=== PATIENT | female | born 1935 | race Caucasian/White ===

== ENCOUNTER 2016-10-24 13:28 | Inpatient (IN) | payer MEDICARE ==
[~2016-10-24] VITALS: Ht 157.5 cm; Wt 54.9 kg
[2016-10-24] MEDS ORDERED: NITROGLYCERIN SUBLINGUAL 0.4 MG TAB (NITROSTAT) SL PRN (14:15)
[2016-10-24] MEDS ORDERED: FOLI0.8T2 PO (14:26)
[2016-10-24] MEDS ORDERED: CYCL1DRO OU (14:26)
[2016-10-24] MEDS ORDERED: LOSA100T3 PO (14:26)
[2016-10-24] MEDS ORDERED: ASPI-999 PO (14:26)
[2016-10-24] MEDS ORDERED: NITR0.4T39 SL (14:26)
[2016-10-24] MEDS ORDERED: METO-351 PO (14:26)
[2016-10-24] MEDS ORDERED: OMEG1CAP PO ×2 (14:26→19:00)
[2016-10-24] MEDS ORDERED: OMEP20TA33 PO (14:26)
[2016-10-24] MEDS ORDERED: ATOR40TA PO (14:26)
[2016-10-24] MEDS ORDERED: POTA10TA PO (14:26)
[2016-10-24] MEDS ORDERED: AMLO5TAB4 PO (14:26)
[2016-10-24 17:00] VITALS: BP 152/76
[2016-10-24] MEDS ORDERED: ARTIFICAL TEARS 0.4 ML UNIT DOSE (REFRESH PLUS) OU PRN (17:15)
[2016-10-24] MEDS: OMEGA 3 (FISH OIL) 1000 MG CAP PO SCH (17:35)
[2016-10-24] MEDS ORDERED: OLME40TA12 PO (19:00)
[2016-10-24] MEDS ORDERED: CELE200C PO (19:00)
[2016-10-24] MEDS ORDERED: PITA2TAB2 PO (19:00)
[2016-10-24] MEDS ORDERED: ESTR0.62 PO (19:00)
[2016-10-24] MEDS ORDERED: ACET-93 PO (19:00)
[2016-10-24] MEDS ORDERED: HYDR-756 PO (19:00)
[2016-10-24] MEDS ORDERED: METO-352 PO (19:00)
[2016-10-24] MEDS: KCL 10 MEQ TAB (MICRO K) PO SCH (20:56)
[2016-10-24] MEDS: ATORVASTATIN 40 MG (LIPITOR) TABLET PO SCH (20:56)
[2016-10-24] MEDS: ARTIFICAL TEARS 0.4 ML UNIT DOSE (REFRESH PLUS) OU SCH (21:10)
[2016-10-25 05:34] LABS: BASOPHILS # (AUTO) 0.1 10^3/uL (0.0-0.1); BASOPHILS % (AUTO) 1 % (0-10); EOSINOPHILS # (AUTO) 0.4 10^3/uL (0.0-0.3); EOSINOPHILS % (AUTO) 5 % (0-10); LYMPHOCYTES # (AUTO) 3.3 X 10^3 (1.0-4.0); LYMPHOCYTES % (AUTO) 43 % (12-44); MEAN CORPUSCULAR HEMOGLOBIN 31 PG (25-34); MEAN CORPUSCULAR HGB CONC 32 G/DL (32-36); MEAN CORPUSCULAR VOLUME 95 FL (80-99); MEAN PLATELET VOLUME 9.6 FL (7.4-10.4); MONOCYTES # (AUTO) 0.7 X 10^3 (0.0-1.0); MONOCYTES % (AUTO) 10 % (0-12); NEUTROPHILS # (AUTO) 3.3 X 10^3 (1.8-7.8); NEUTROPHILS % (AUTO) 42 % (42-75); PLATELET COUNT 242 10^3/uL (130-400); RED BLOOD COUNT 3.31 10^6/uL (4.35-5.85); RED CELL DISTRIBUTION WIDTH 12.6 % (10.0-14.5); WHITE BLOOD COUNT 7.8 10^3/uL (4.3-11.0)
[2016-10-25 06:02] VITALS: BP 162/71
[2016-10-25] MEDS: OMEGA 3 (FISH OIL) 1000 MG CAP PO SCH ×2 (06:04→17:09)
[2016-10-25] MEDS: PANTOPRAZOLE 20 MG TABLET (PROTONIX) PO SCH (06:05)
[2016-10-25] MEDS: MULTIVIT W/MINERALS TAB (THERAGRAN M) PO SCH (06:05)
[2016-10-25] MEDS: KCL 10 MEQ TAB (MICRO K) PO SCH ×2 (06:05→17:09)
[2016-10-25 06:14] LABS: ALBUMIN 3.5 GM/DL (3.2-4.5); BILIRUBIN,TOTAL 0.3 MG/DL (0.1-1.0); CALCIUM 8.9 MG/DL (8.5-10.1); CREATININE SERUM 1.22 MG/DL (0.60-1.30); POTASSIUM 4.1 MMOL/L (3.6-5.0); TOTAL PROTEIN 6.1 GM/DL (6.4-8.2)
[2016-10-25] MEDS: LOSARTAN 50 MG (COZAAR) TAB PO SCH (08:27)
[2016-10-25] MEDS: amLODIPine 5 MG (NORVASC) TAB PO SCH (08:27)
[2016-10-25] MEDS: ASPIRIN E.C. 81 MG (ECOTRIN) TAB PO SCH (08:27)
[2016-10-25] MEDS: ARTIFICAL TEARS 0.4 ML UNIT DOSE (REFRESH PLUS) OU SCH ×2 (08:27→19:19)
--- NOTE | 2016-10-25 08:45 | Physical Therapy Evaluation ---
PT Evaluation-General Medical Diagnosis Admission Date Oct 24, 2016 at 16:53 Medical Diagnosis: CVA Onset Date: Oct 19, 2016 Therapy Diagnosis Therapy Diagnosis: generalized weakness/debility Height/Weight Height (Feet): 5 Height (Inches): 2.00 Weight (Pounds): 121 Weight (Ounces): 0.0 Precautions Precautions/Isolations: Fall Prevention, Standard Precautions Referral Physician: Blake Reason for Referral: Evaluation/Treatment Medical History Pertinent Medical History: Arthritis, Dementia Current History s/p CVA with left sided weakness Reviewed History: Yes Social History Home: Single Level Current Living Status: Spouse Entry Into Home: Stairs With Railing PT Steps Into Home: 1 Prior/Core FIM Prior Level of Function Functional Bull[place] Measure 0=Not Assessed/NA 4=Minimal Assistance 1=Total Assistance 5=Supervision or Setup 2=Maximal Assistance 6=Modified [place] 3=Moderate Assistance 7=Complete [place] Bed Mobility: 6 Transfers (B,C,W/C) (FIM): 6 Gait: 7 spouse assist with all mobility and ADL's PLOF per spouse report PT Evaluation-Current Subjective Patient is very reluctant to participate with PT. Spouse is present and patient address him to assist her with bed mobility and transfers. Pain Numeric Pain Scale: 5-Moderate Pain Location: Lower Location Body Site: Back Pain Description: Ache, Chronic Objective Patient Orientation: Confused Problem Solving: Fair ROM/Strength ROM Lower Extremities bilateral LE WNL Strenght Lower Extremities right knee flexion/extension 4/5; hip flexion 4/5; ankle dorsi/plantarflexion 4/ 5 left knee flexion/extension 4/5; hip flexion 4/5 ankle dorsi/plantarflexion 4/5 Integumentary/Posture Integumentary refer to nursing notes Bowel Incontinence: No Bladder Incontinence: No Posture WNL Neuromuscular (Tone, Coordination, Reflexes) slight diminished coordination due to dementia Sensory Vision: Wears Glasses Hearing: Functional Sensation Right Lower Extremit: Intact Sensation Left Lower Extremity: Intact Transfers Functional Bulloch Measure 0=Not Assessed/NA 4=Minimal Assistance 1=Total Assistance 5=Supervision or Setup 2=Maximal Assistance 6=Modified [place] 3=Moderate Assistance 7=Complete IndependenceIRFPAI Quality Coding Scale 6 Independent with activity with or without an assistive device 5 Patient requires set up or clean up by helper. Patient completes activity by themselves 4 Supervision or touching assist (CGA). [place] provide cues , steadying assist 3 The helper provides less than half the effort to complete the activity 2 The helper provides more than half the effort to complete the activity 1 Dependent. The helper does all the effort to complete an activity 7 Patient refused to complete or attempt activity 9 The patient did not perform the activity before the current illness or injury 88 Not attempted due to Medical conditions or safety concerns Transfers (B, C, W/C) (FIM): 4 Scootin Rollin Roll Left to Right (QC): 5 Supine to/from Sit: 5 Sit to/from Stand: 4 Sit to Lying (QC): 5 Lying to Sitting/Side of Bed(Q: 5 Sit to Stand (QC): 4 Chair/Dmg-vk-Oftuj Xfer(QC): 4 Car Transfer (QC): 5 CGA with use of gait belt for safety Gait Does the Patient Walk?: Yes Mode of Locomotion: Walk Anticipated Mode of Locomotion: Walk Gait (FIM): 4 Distance (FIM): 3=150 ft Walk 10 feet (QC): 4 Walk 50 ft with 2 Turns(QC): 4 Walk 150 ft (QC): 4 Walking 10ft/uneven surface-QC: 4 Distance: 200' x 5 Gait Level of Assist: 4 (DENTAL ASSISTANT) Gait Persons Needed: 1 Gait Assistive Device: None Comments/Gait Description shuffle gait sequence with DENTAL ASSISTANT; patient requires much encouragement to participate and continue to participate with therapy. Stairs Stairs (FIM): 1 #of Steps: 1 Level of Assist: 4 1 Step (curb) (QC): 4 4 Steps (QC): 7 12 Steps (QC): 7 patient adamantly declined to participate with stair training and impulsively and resistively will pull on PT's hand to go sit on a chair. She would repeat, "I want to go back to my room. I want to go home. Where is Km?" Balance Sitting Static: Normal Sitting Dynamic: Normal Standing Static: Normal Standing Dynamic: Normal Picking up an Object (QC): 6 Assessment/Needs 81 y.o. female, is currently at a CGA to A with gross motor skills. Patient is very resistive to participate with therapy due to dementia and patient relies on spouse support to complete tasks. PT, with patient and spouse, will address functional strength and mobility to improve current LOF and to safely return to home with spouse. Rehab Potential: Fair Post Rehab Potential-Barriers: participate/dementia PT Group Home Goals Unit Assembler Goals PT Group Home Goals Time Frame: Nov 07, 2016 Transfers (B,C,W/C) (FIM): 6 Sit to Lying (QC): 5 Lying-Sitting on Side/Bed(QC): 5 Sit to Stand (QC): 5 Rollin Roll Left to Right (QC): 5 Chair/Chj-jx-Ruxir Xfer(QC): 5 Car Transfer (QC): 5 Does the Patient Walk: Yes Gait (FIM): 5 Gait distance (FIM): 3=150 ft Walk 10 feet (QC): 5 Walk 10ft-Uneven Surface(QC): 5 Walk 50ft with 2 Turns (QC): 5 Walk 150 ft (QC): 5 Gait Level of Assist: 5 Gait Assistive Device: None Stairs (FIM): 2 # of Steps: 4 1 Step (curb) (QC): 5 4 Steps (QC): 5 12 Steps (QC): 9 Stairs Level Of Assist: 5 Picking up an Object (QC): 6 PT Plan Problem List Problem List: Activity Tolerance, Safety Treatment/Plan Treatment Plan: Continue Plan of Care Treatment Plan: Bed Mobility, Education, Functional Activity Kareen, Functional Strength, Group Therapy, Gait, Safety, Therapeutic Exercise, Transfers Treatment Duration: Nov 07, 2016 Frequency: At least 5-7 days/Wk (IRF) Estimated Hrs Per Day: 1.5 hours per day Patient and/or Family Agrees t: Yes Safety Risks/Education Patient Education: Gait Training, Steps, Safety Issues Teaching Recipient: Patient Teaching Methods: Discussion Response to Teaching: Unable to Comprehend, Reinforcement Needed Discharge Recommendations Therapy D/C Recommendations: Home w/ Family Support Time/GCodes Time In: 655 Time Out: 800 Total Billed Treatment Time: 65 Total Billed Treatment 1 visit EVModC 45 min FA 20 min SEFERINO YAÑEZ PT Oct 25, 2016 08:45
--- NOTE | 2016-10-25 09:27 | PM&R Post Admission Assessment ---
Post Admission Physician Asses The preadmission screen agrees with the post admission assessment that the patient is a good candidate for inpatient rehabilitation. The patient will have a comprehensive program of inpatient rehabilitation with a goal of maximizing level of functional independence prior to discharge home with spouse. The patient will have PT/OT ninety minutes per day, each discipline, five days a week for gait, strengthening, conditioning, balance, ADLs, any patient/family/caregiver training as necessary. Speech therapy to do cognitive assessment and treat as indicated. Rehabilitation nursing to assist with bowel, bladder, skin, medication administration, pain management. Debt Collector to assist with discharge planning, community reentry. SCD's for DVT prophylaxis. She appears to be well motivated to participate in three hours of therapy a day. She should be able to tolerate three hours of therapy a day from a medical standpoint. She should benefit from the three hours of therapy a day. She has a reasonable discharge plan, reasonable discharge rehabilitation goals and a supportive family. She has various comorbidities that need to be closely monitored with medications and treatments adjusted on a daily basis as needed. These include: HTN Chronic back pain due to scoliosis azotemia Anemia Barriers to discharge for this patient who had been independent prior to this are for her to be modified independent to supervision for ADLs and mobility skills prior to discharge home with spouse, so as to lessen the burden of the caregivers. Risks for this patient include: 1. Fall 2. Fracture 3. DVT 4. Pulmonary embolism 5. Poorly controlled HTN 6. Skin breakdown 7. Contractures 8. Poorly controlled pain 9. Urinary retention 10. UTI 11. Respiratory infection 12. Aspiration 13. Worsening anemia 14. Worsening Azotemia Estimated Length of Stay: 14 days Prognosis: Rehab prognosis appears good for goal of discharge home with [family ] modified independent to supervision for ADLs and mobility skills. TIFFANY DURAN MD Oct 25, 2016 09:27
--- NOTE | 2016-10-25 09:47 | Occupational Therapy Eval ---
OT Evaluation-General/PLF Medical Diagnosis Admission Date Oct 24, 2016 at 16:53 Medical Diagnosis: CVA Onset Date: Oct 19, 2016 Therapy Diagnosis Therapy Diagnosis: Weakness Height/Weight Height (Feet): 5 Height (Inches): 2.00 Weight (Pounds): 121 Weight (Ounces): 0.0 Precautions Precautions/Isolations: Fall Prevention, Standard Precautions Safety Interventions: Bed Exit Alarm, Reorient-PRN Referral Physician: Blake Referral Reason: Activity Tolerance, Self Care, Evaluation/Treatment, Strengthening/ROM Medical History Pertinent Medical History: Arthritis, Dementia Additional Medical History scoliosis, OA, perforated duodenal ulcer Current History Spouse states that pt. had a surgery for a perforated bowel a year and a half ago. States that when she woke up from the surgery, she had no short term memory. Pt. had CVA a week ago, affecting left side. States that she was not given a "clot buster" and he does not know why. Reviewed History: Yes Social History Home: Single Level Current Living Status: Spouse Entry Into Home: Stairs With Railing Steps Into Home: 1 ADL-Prior Level of Function ADL PLOF Comments Spouse states that pt. was able to bathe and dress, but that he helped her when she needed it. DME/Equipment: Bath Chair, Shower OT Current Status Subjective Pt. does not know where she is, or what happened to her. Appearance Pt. is up with PT. OT introduces self to pt. Mental Status/Objective Patient Orientation: Confused Current Glasses/Contacts: Yes Hand Dominance: Right Upper Extremity ROM Pt. is able to demonstrate full ROM in bilateral shoulders/elbows. However, limited hand function in left hand. Full ROM in right hand. Upper Extremity Coordination limited in left UE. Upper Extremity Sensation Pt. reports "numbness" in left UE. Upper Extremity Strength Pt. demonstrates 2+/5 strength in right UE. Demonstrates 2+/5 proximally in left UE, and 2/5 distally in left UE. ADL-Treatment Functional [place]oussard Measure 0=Not Assessed/NA 4=Minimal Assistance 1=Total Assistance 5=Supervision or Setup 2=Maximal Assistance 6=Modified [place] 3=Moderate Assistance 7=Complete IndependenceIRFPAI Quality Coding Scale 6 Independent with activity with or without an assistive device 5 Patient requires set up or clean up by helper. Patient completes activity by themselves 4 Supervision or touching assist (CGA). [place] provide cues , steadying assist 3 The helper provides less than half the effort to complete the activity 2 The helper provides more than half the effort to complete the activity 1 Dependent. The helper does all the effort to complete an activity 7 Patient refused to complete or attempt activity 9 The patient did not perform the activity before the current illness or injury 88 Not attempted due to Medical conditions or safety concerns Grooming (FIM): 3 (Pt. begins to brush right side of hair, but then does not brush left side. Asks spouse who then does this for her.) Bathing (FIM): 4 (Pt. requires constant cues to wash all parts. Will only "dab " at places. CGA in stance.) Shower/Bathe Self (QC): 4 Upper Body Dressing (FIM): 3 (Mod assist overall to doff/don bra and shirt due to decreased coordination in left UE.) Upper Body Dressing (QC): 3 Lower Body Dressing (FIM): 4 (Min assist to don right sock. Pt. able to don underwear, pants, and shoes, with CGA in stance for balance.) Lower Body Dressing (QC): 4 On/Off Footwear (QC): 5 Toileting (FIM): 4 (CGA and cues to cleanse thoroughly.) Toileting Hygiene (QC): 4 Transfers (B, C, W/C) (FIM): 4 (CGA at times.) Toilet/Commode Transfer (FIM): 4 Toilet Transfer (QC): 4 Shower Transfer (FIM): 4 Other Treatments Pt. participated in series of visual perceptual and cognitive tasks. Participated in the MOCA exam, and scored a 13/30, indicating a severe cognitive impairment. Unable to determine visual perceptual skills, as pt. will refuse to participate in these things. Was able to recall 7/12 words after three trials on the burrell verbal learning test. No significant field cut noted. Spouse does state that pt. had memory deficits beginning after a surgery from over a year ago. He is wondering if pt's memory can be corrected now. Educated him on memory vs. strategies for remembering. Will speak with speech therapist on Thursday. Also educated spouse on types of CVA's. Spouse states that pt. is pretty much at baseline, other than the function of her left hand. Provided chair alarm in room and educated spouse on safety. Pt. provided with hand sponge and theraputty to increase overall strength of left UE. Education OT Patient Education: Correct positioning, Exercise program, Modified ADL techniques, Progress toward Goal/Update tx plan, Purpose of tx/functional activities, Reviewed precautions, Rehab process, Transfer techniques Teaching Recipient: Patient Teaching Methods: Demonstration, Discussion Response to Teaching: Verbalize Understanding, Return Demonstration OT Short Term Goals Short Term Goals 1=Demonstrate adherence to instructed precautions during ADL tasks. 2=Patient will verbalize/demonstrate understanding of assistive devices/ modifications for ADL. 3=Patient will improve strength/tolerance for activity to enable patient to perform ADL's. OT Skilled Nursing Goals Face Man Goals Time Frame: Nov 08, 2016 Eating (FIM): 6 Eating (QC): 6 Groomin Oral Hygiene (QC): 5 Bathing(FIM): 5 Shower/Bathe Self (QC): 5 Upper Body Dressing(FIM): 5 Upper Body Dressing (QC): 5 Lower Body Dressing(FIM): 5 Lower Body Dressing (QC): 5 On/Off Footwear (QC): 5 Toileting(FIM): 6 Toileting Hygiene (QC): 6 Transfers (B,C,W/C) (FIM): 6 Toilet/Commode Transfer(FIM): 6 Toilet/Commode Transfer (QC): 6 Shower Transfer(FIM): 5 Additional Goals: 1-Demonstrate ADL Tasks, 2-Verbalize Understanding, 3- ImproveStrength/Kareen 1=Demonstrate adherence to instructed precautions during ADL tasks. 2=Patient will verbalize/demonstrate understanding of assistive devices/ modifications for ADL. 3=Patient will improve strength/tolerance for activity to enable patient to perform ADL's. OT Education/Plan Problem List/Assessment Assessment: Decreased Activ Tolerance, Decreased Safety Aware, Decreased UE Strength, Dependent Transfers, Impaired Bed Mobility, Impaired Cognition, Impaired Coordination, Impaired Funct Balance, Impaired I ADL's, Impaired Self- Care Skills, Restricted Funct UE ROM, Visual-Perceptual Deficit Discharge Recommendations Plan/Recommendations: Continue POC Therapy D/C Recommendations: 24 hr Supervision, Home w/ Family Support, Occupational Therapy Outpatient Equpiment Recommendations-D/C: Rails on Tub/Shower Barriers to Progress Cognition Target Placement Home with spouse in familiar environment. Treatment Plan/Plan of Care Treatment,Training & Education: Yes Patient would benefit from OT for education, treatment and training to promote independence in ADL's, mobility, safety and/or upper extremity function for ADL' s. Plan of Care: ADL Retraining, Caregiver Training, Cognitive Retraining, Functional Mobility, UE Funct Exercise/Act, UE Neuromus Re-Ed/Coord, Visual/ Perceptual Retrain Treatment Duration: Nov 08, 2016 Frequency: At least 5-7 days/Wk (IRF) Estimated Hrs Per Day: 1.5 hours per day Agreement: Yes Rehab Potential: Good Time/GCodes Start Time: 08:00 Stop Time: 09:45 Total Time Billed (hr/min): 105 Billed Treatment Time 1, EVM x 15minutes, FA x 45minutes, ADL x 45minutes RENAY LAYNE OT Oct 25, 2016 09:47
--- NOTE | 2016-10-25 10:45 | Physical Therapy Daily Note ---
PT Daily Note-Current Subjective Patient declines OOB activity. Agrees to exercises. Pain Numeric Pain Scale: 0-No Pain Location: No Pain Reported Mental Status Patient Orientation: Confused Transfers Functional [place] Measure 0=Not Assessed/NA 4=Minimal Assistance 1=Total Assistance 5=Supervision or Setup 2=Maximal Assistance 6=Modified [place] 3=Moderate Assistance 7=Complete IndependenceIRFPAI Quality Coding Scale 6 Independent with activity with or without an assistive device 5 Patient requires set up or clean up by helper. Patient completes activity by themselves 4 Supervision or touching assist (CGA). [place] provide cues , steadying assist 3 The helper provides less than half the effort to complete the activity 2 The helper provides more than half the effort to complete the activity 1 Dependent. The helper does all the effort to complete an activity 7 Patient refused to complete or attempt activity 9 The patient did not perform the activity before the current illness or injury 88 Not attempted due to Medical conditions or safety concerns Exercises Supine Ex: Ankle pumps, Quad Set, Heel Slides, Straight leg raise Supine Reps: 10 (AAROM due to difficulty following direction/bilaterally) Assessment Patient is very fatigued. Patient's spouse feels patient is at or close to baseline with gross motor skills. PT Automatic Profile Shaper Operator Goals Fci Goals PT [facility]ci Goals Time Frame: Nov 07, 2016 Transfers (B,C,W/C) (FIM): 6 Sit to Lying (QC): 5 Lying-Sitting on Side/Bed(QC): 5 Sit to Stand (QC): 5 Rollin Roll Left to Right (QC): 5 Chair/Kqe-jd-Pqlmq Xfer(QC): 5 Car Transfer (QC): 5 Does the Patient Walk: Yes Gait (FIM): 5 Gait distance (FIM): 3=150 ft Walk 10 feet (QC): 5 Walk 10ft-Uneven Surface(QC): 5 Walk 50ft with 2 Turns (QC): 5 Walk 150 ft (QC): 5 Gait Level of Assist: 5 Gait Assistive Device: None Stairs (FIM): 2 # of Steps: 4 1 Step (curb) (QC): 5 4 Steps (QC): 5 12 Steps (QC): 9 Stairs Level Of Assist: 5 Picking up an Object (QC): 6 PT Plan Treatment/Plan Treatment Plan: Continue Plan of Care Treatment Plan: Bed Mobility, Education, Functional Activity Kareen, Functional Strength, Group Therapy, Gait, Safety, Therapeutic Exercise, Transfers Treatment Duration: Nov 07, 2016 Frequency: At least 5-7 days/Wk (IRF) Estimated Hrs Per Day: 1.5 hours per day Patient and/or Family Agrees t: Yes Time/GCodes Time In: 1030 Time Out: 1040 Total Billed Treatment Time: 10 Total Billed Treatment 1 visit EX 10 min SEFERINO YAÑEZ PT Oct 25, 2016 10:45
[2016-10-25 18:25] VITALS: BP 146/76
[2016-10-25] MEDS: ACETAMINOPHEN 500 MG TAB (TYLENOL) PO PRN (19:19)
[2016-10-25] MEDS: ATORVASTATIN 40 MG (LIPITOR) TABLET PO SCH (19:19)
--- NOTE | 2016-10-25 23:03 | HISTORY AND PHYSICAL ---
DATE OF ADMISSION: 10/24/2016 CHIEF COMPLAINT: Difficulty with walking. HISTORY OF PRESENT ILLNESS: The patient is a 81-year-old female who had been independent and living in her spouse in [place] who developed left-sided weakness and dysarthria. She was evaluated in a local ED and transfer to [facility] in [place]. She was seen by neurology. Imaging studies revealed an ischemic right CVA accounting for her left hemiparesis and facial droop. She was placed on aspirin. She was out of the window for TPA. Therapies were begun, she was felt to be appropriate for inpatient rehabilitation and she was referred here so as to be closer to home. They are friends of staff member at this facility. Currently she is reported to be continent of bowel and bladder. She is min assist for transfers, min assist for ambulation with hand-held assistance. She is set up for eating and grooming. She is right-hand dominant. She complains of weakness in her left hand and gait imbalance. She is mod assist for upper body dressing, lower body dressing and toileting. Prior level of function as outlined above. She had been independent prior to this for most part but requiring some assistance from her spouse due to memory loss.. PAST MEDICAL HISTORY: She has chronic back pain from scoliosis. HTN Hypercholesteremia Memory loss since abdominal surgery 18 months ago for perforated duodenal ulcer PAST SURGICAL HISTORY: Colon surgery as per above for perforated bowel ALLERGIES: 1. Amoxicillin 2. nitrofurantoin INTOLERANCES: 1. citalopram 2. gluten 3. hydrochlorothiazide 4. quinapril 5. Zoloft 6. triamterene FAMILY HISTORY: Noncontributory. SOCIAL HISTORY: Essentially as per above. REVIEW OF SYSTEMS: Ten-point review of systems significant for chronic back pain, takes Tylenol and occasional Lortab at home for that. PCP is Dr. Bernabe Pérez at [facility]. Currently has complaints of left hand weakness and gait imbalance. MEDICATION: 1. Amlodipine 5 mg p.o. daily. 2. ASA 81 mg p.o. daily. 3. Losartan 100 mg p.o. daily. 4. Toprol 75 mg p.o. daily. 5. Protonix 20 mg p.o. daily. 6. Multivitamins with minerals 1 tablet p.o. daily. 7. Lipitor 40 mg p.o. at bedtime. 8. KCL 10 mEq p.o. b.i.d. 9. Refresh eye drops, one drop both eyes b.i.d. 10. Fish oil 2000 mg p.o. b.i.d. 11. Nitroglycerin 0.4 mg sublingual q. 5 minutes p.r.n. chest pain up to 4. PHYSICAL EXAMINATION: Significant for a thin pleasant female appearing her stated age. She is sitting in a wheelchair in no acute distress. VITAL SIGNS: She is afebrile. Pulse 65, respirations 16, blood pressure 162/71, O2 sat 92% on room air. HEENT: Vision, speech, hearing, grossly intact. No oral lesion noted. She does have a mild a facial droop. NECK: Supple without mass. HEART: Regular rhythm. LUNGS: Clear. ABDOMEN: Soft, nontender. Bowel sounds present. EXTREMITIES: No lower leg edema. No calf tenderness. MUSCULOSKELETAL: The patient has functional active range of motion in all 4 extremities, other than the left hand and fingers with limited body and fender mechanic apprentice strength. BACK: She has scoliosis with some mild tenderness to palpation. NEUROLOGIC: Sensation is grossly intact to touch. Cognition -memory impairment apparent but patient follows commands, strength is 4/5 both lower limbs. Left upper limb has impaired body and fender mechanic apprentice strength on the left with strength in general 2+/5 proximally LUE and distal 2/5.Strength 2+/5 RUE. IMPRESSION: 1. 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 2. Hypertension, controlled with medication. 3. Chronic back pain due to scoliosis. Utilizes pain medications. 4. Anemia with hemoglobin and hematocrit on 10/25 of 10.05/20. WBC count 7.8. 5. Mild azotemia with a BUN of 27 on 10/25, creatinine 1.22, GFR 43. 6. HTN controlled with meds 7. Hypercholesteremia-on statin 8. Mild dementia PLAN: The patient will have a comprehensive program of inpatient stroke rehabilitation with a goal of maximizing level of functional independence prior to discharge home with spouse. The patient will have PT/OT 90 minutes per day, each discipline, 5 days week for gait strengthening, conditioning, balance, ADLs, any patient/family/caregiver training necessary, any adaptive equipment and training necessary. Rehabilitation nursing to assist with bowel, bladder, skin care, medication administration, pain management. Speech therapy to do cognitive assessment and treat as indicated. abatement worker to assist with discharge planning, community reentry. Consult Dr. Ragland for medical management of this out of town patient. Trend anemia and azotemia. Continue current medications. Follow-up with Dr. Bernabe Pérez upon discharge. A repeat MRI is recommended in 3 months' time by neurology at [facility]. They noticed an incidental cavernous hemangioma on MRI. ESTIMATED LENGTH OF STAY: Two weeks. PROGNOSIS: Rehab prognosis appears good for goal about discharging home with spouse modified independent to supervision for ADLs and mobility skills. DIET: Heart healthy. CODE STATUS: Full code. Job ID: [id number] Dictated Date: 10/25/2016 09:23:00 Revenue Stamp Cutter Date: 10/25/2016 22:42:02/josie BEEBE
[2016-10-26] MEDS: PANTOPRAZOLE 20 MG TABLET (PROTONIX) PO SCH (06:07)
[2016-10-26] MEDS: OMEGA 3 (FISH OIL) 1000 MG CAP PO SCH ×2 (06:07→18:02)
[2016-10-26] MEDS: KCL 10 MEQ TAB (MICRO K) PO SCH ×2 (06:07→18:02)
[2016-10-26] MEDS: MULTIVIT W/MINERALS TAB (THERAGRAN M) PO SCH (06:07)
[2016-10-26 06:10] VITALS: BP 149/69
[2016-10-26] MEDS: ARTIFICAL TEARS 0.4 ML UNIT DOSE (REFRESH PLUS) OU SCH ×2 (08:49→20:55)
[2016-10-26] MEDS: ASPIRIN E.C. 81 MG (ECOTRIN) TAB PO SCH (08:50)
[2016-10-26] MEDS: LOSARTAN 50 MG (COZAAR) TAB PO SCH (08:50)
[2016-10-26] MEDS: amLODIPine 5 MG (NORVASC) TAB PO SCH (08:51)
[2016-10-26 18:15] VITALS: BP 169/71
[2016-10-26] MEDS: ATORVASTATIN 40 MG (LIPITOR) TABLET PO SCH (20:55)
[2016-10-27 05:24] VITALS: BP 152/70
[2016-10-27] MEDS: MULTIVIT W/MINERALS TAB (THERAGRAN M) PO SCH (06:30)
[2016-10-27] MEDS: KCL 10 MEQ TAB (MICRO K) PO SCH ×2 (06:31→16:48)
[2016-10-27] MEDS: OMEGA 3 (FISH OIL) 1000 MG CAP PO SCH ×2 (06:31→16:48)
[2016-10-27] MEDS: PANTOPRAZOLE 20 MG TABLET (PROTONIX) PO SCH (06:31)
[2016-10-27] MEDS: ARTIFICAL TEARS 0.4 ML UNIT DOSE (REFRESH PLUS) OU SCH ×2 (08:23→20:02)
[2016-10-27] MEDS: amLODIPine 5 MG (NORVASC) TAB PO SCH (08:23)
[2016-10-27] MEDS: LOSARTAN 50 MG (COZAAR) TAB PO SCH (08:23)
[2016-10-27] MEDS: ASPIRIN E.C. 81 MG (ECOTRIN) TAB PO SCH (08:23)
[2016-10-27] MEDS: ACETAMINOPHEN 500 MG TAB (TYLENOL) PO PRN ×2 (08:34→15:44)
--- NOTE | 2016-10-27 08:40 | Consultation ---
History of Present Illness History of Present Illness Patient Consulted On(clarissa/time) 10/27/16 08:35 Time Seen by Provider: 08:35 History of Present Illness patient has dementia. Patient does not know the vice president of product marketing or the year. Patient has left facial droop slightly and left sided weakness. Patient does not know what surgeries she had. Patient unable to give a good or accurate history Allergies and Home Medications Allergies Coded Allergies: amoxicillin (Verified Allergy, Unknown, 10/24/16) citalopram (Verified Allergy, Unknown, 10/24/16) diltiazem (Verified Allergy, Unknown, 10/24/16) gluten (Verified Allergy, Unknown, RASH, 10/24/16) hydrochlorothiazide (Verified Allergy, Unknown, 10/24/16) nitrofurantoin (Verified Allergy, Unknown, 10/24/16) quinapril (Verified Allergy, Unknown, 10/24/16) sertraline (Verified Allergy, Unknown, 10/24/16) triamterene (Verified Allergy, Unknown, 10/24/16) Home Medications Acetaminophen 500 Mg Tablet, 500 MG PO TID, (Reported) Celecoxib 200 Mg Capsule, 200 MG PO DAILY, (Reported) Cyclosporine 1 Each Droperette, 1 DROP OU BID, (Reported) Estrogens, Conjugated 0.625 Mg Tablet, 0.625 MG PO DAILY, (Reported) Folic Acid/Vitamin B Comp W-C 0.8 Mg Tablet, 0.8 MG PO HS, (Reported) Hydrocodone/Acetaminophen 1 Each Tablet, 1 EACH PO Q8H PRN for PAIN-MILD TO MODERATE, (Reported) Metoprolol Succinate 50 Mg Tab.er.24h, 50 MG PO DAILY, (Reported) Nitroglycerin 0.4 Mg Tab.subl, 0.4 MG SL Q5 minutes PRN for CHEST PAIN, ( Reported) Olmesartan Medoxomil 40 Mg Tablet, 40 MG PO BID, (Reported) [place]ft-3 Acid Ethyl Esters 1 Gm Capsule, 1 GM PO BID, (Reported) Omeprazole Magnesium 20 Mg Tablet.dr, 20 MG PO DAILY, (Reported) Pitavastatin Calcium 2 Mg Tablet, 2 MG PO DAILY, (Reported) Potassium Chloride 10 Meq Tablet.er, 10 MEQ PO BID, (Reported) Past Fujvaym-Refkes-Rekjlb Hx Patient Social History Smoking Status: Never a Smoker Recent Foreign Travel: No Contact w/Someone Who Travel: No Recent Infectious Disease Expo: No Immunizations Up To Date Date of Pneumonia Vaccine: Jan 19, 2016 Respiratory Hx Respiratory Disorders: No Cardiovascular Cardiac Disorders: High Cholesterol, Hypertension Gastrointestinal Gastrointestinal Disorders: Ulcer Musculoskeletal Musculoskeletal Disorders: Scoliosis, Chronic Back Pain Review of Systems-General Constitutional: weakness EENTM: no symptoms reported, other (Left side of mouth slight droop) Respiratory: no symptoms reported Cardiovascular: no symptoms reported Gastrointestinal: no symptoms reported Genitourinary: no symptoms reported Physical Exam-General Problems Physical Exam Vital Signs Vital Sign - Last 12Hours 10/24/16 17:00 Temp 98.7 Pulse 71 Resp 18 B/P (MAP) 152/76 Pulse Ox 96 O2 Delivery Room Air Capillary Refill : General Appearance: no apparent distress, thin Eyes: Bilateral Eye Normal Inspection HEENT: other (Slight droop left side) Neck: non-tender, full range of motion, normal inspection Respiratory: chest non-tender, normal breath sounds, no respiratory distress, no accessory muscle use Cardiovascular: regular rate, rhythm, no murmur Gastrointestinal: non tender, soft Assessment/Plan Assessment/Plan Admission Diagnosis/Plan fall. 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 Hypertension. Anemia. Renal insufficiency. Clinical Quality Measures DVT/VTE Risk/Contraindication: Risk Factor Score Per Nursin RFS Level Per Nursing on Admit: 2=Moderate MARLEY BLANK DO Oct 27, 2016 08:40
--- NOTE | 2016-10-27 09:33 | ST Cognitive Linguistic Eval ---
Speech Evaluation-General Medical Diagnosis Ischemic Right CVA Onset Date: Oct 19, 2016 Therapy Diagnosis Therapy Diagnosis: Moderate Cognitive Impairment Precautions Precautions/Isolations: Fall Prevention, Standard Precautions Referral Referring Physician: Dr. Tristen Lozano Reason for Referral: Evaluation/Treatment Cognitive Evaluation Medical History Pertinent Medical History: Arthritis, Dementia Reviewed History: Yes Social History Current Living Status: Spouse Speech PLF-Current Status Prior Level of Function The patient denied prior or current challenges with cognition, speech, or language. The patient demonstrated difficulty communication prior level of function. Subjective The patient was recently admitted to [facility] Rehabilitation unit following a right ischemic CVA. The patient greeted the clinician appropriately and was agreeable to participation in the cognitive evaluation on this date. Language Eval: Auditory Comprehends Simple Yes/No Ques: Functional Indent/Objects Multiple Knight: Functional Ident/Pics in Multiple Knight: Functional Follows 1-Step Commands: Functional Follows Complex Directions: Mild Follows General Conversations: Mild Language Eval: Verbal Language Completes Spontaneous Greeting: Functional Produces Auto, Serial Info: Functional Imitates Simple Words/Phrases: Functional Word Finding: Moderate Requests Basic Needs: Functional States Basic Personal Info: Mild Expresses Complex Ideas: Moderate Cognitive Patient Orientation The patient was not oriented to the year, month, day of week, or date. Additionally, the patient was unable to state the rationale for her hospitalization. Objective Cognitive Domain Attention: WNL Memory: Moderate Problem Solving: Moderate Executive Functions: Moderate Objective Impression The patient demonstrated a moderate cognitive impairment, most notably in the area of memory. Following a chart review, the patient may be functioning at a baseline level due to her dementia diagnosis, however, speech pathology wishes to treat the patient in attempts to provide increased accuracy with other disciplines (physical therapy, occupational therapy). Communication/Social Cognition Comprehension: 3 Expression: 4 Social Interaction: 5 Problem Solvin Memory: 2 Speech Patient Assess Expression of Ideas/Wants: Exhibits (3) Understanding Vebal Content: Usually Understands (3) Brief Interview-Mental Status: Yes Repetition of Three Words: Three (3) Temporal Orientation: Year: Missed by more than 5 yrs (0) Temporal Orientation: Month: No answer (0) Temporal Orientation: Day: Incorrect or No Answer(0) Recall : Wear to say "Sock": No, could not recall (0) Recall : Color: No, could not recall (0) Recall : Bed: No, could not recall (0) Speech Short Term Goals Short Term Goals Short Term Goals 1. The patient will demonstrate recall and demonstration of two functional memory strategies with mild clinician verbal cueing. 2. The patient will demonstrate 80% accuracy with structured word-finding tasks with mild clinician verbal cueing. 3. The patient will display 80% accuracy with safety problem solving, independently. 4. The patient will recall ADL sequencing with 80% accuracy and mild clinician verbal cueing. Time Frame-STG: One Week Speech Halfway Goals Vegetable Canner Goals 1. The patient will demonstrated increased cognitive skills for improved function and safety with ADL's in the least restrictive setting. Time Frame: Two Weeks Comprehension: 4 Expression: 5 Social Interaction: 5 Problem Solvin Memory: 3 Speech-Plan Treatment Plan Speech Therapy Treatment Plan: Continue Plan of Care Continue speech pathology intervention to target functional memory strategies and safety problem solving. Frequency: 5 times per week Estimated Hrs Per Day: .5 hour per day Rehab Potential: Fair Safety Risks/Education Teaching Recipient: Patient Teaching Methods: Discussion Response to Teaching: Reinforcement Needed Education Topics Provided: Recommendations, Results, Plan of Care Time Speech Therapy Time In: 08:25 Speech Therapy Time Out: 08:50 Total Billed Time: 25 Billed Treatment Time 1, KEVIN RUSS Oct 27, 2016 09:33
[2016-10-27] MEDS ORDERED: AMLO5TAB2 PO (10:53)
[2016-10-27] MEDS ORDERED: LOSA100T28 PO ×2 (10:53→19:25)
[2016-10-27] MEDS ORDERED: ASPI-999 PO (10:53)
[2016-10-27] MEDS ORDERED: ATOR40TA70 PO (10:53)
[2016-10-27] MEDS ORDERED: METO-270 PO (10:53)
--- NOTE | 2016-10-27 11:10 | Physical Therapy Daily Note ---
PT Daily Note-Current Subjective Pt. and in room. Pt. resists Rx. Does not want to leave room, does eventually with holding hand near entire time. Pt. resistive to every task suggested. cajoles and tries to influence pt. to participate Pain Numeric Pain Scale: 0-No Pain Location: No Pain Reported Mental Status Patient Orientation: Confused Transfers Functional [place] Measure 0=Not Assessed/NA 4=Minimal Assistance 1=Total Assistance 5=Supervision or Setup 2=Maximal Assistance 6=Modified [place] 3=Moderate Assistance 7=Complete IndependenceIRFPAI Quality Coding Scale 6 Independent with activity with or without an assistive device 5 Patient requires set up or clean up by helper. Patient completes activity by themselves 4 Supervision or touching assist (CGA). [place] provide cues , steadying assist 3 The helper provides less than half the effort to complete the activity 2 The helper provides more than half the effort to complete the activity 1 Dependent. The helper does all the effort to complete an activity 7 Patient refused to complete or attempt activity 9 The patient did not perform the activity before the current illness or injury 88 Not attempted due to Medical conditions or safety concerns Transfers (B, C, W/C) (FIM): 6 Scootin Rollin Supine to/from Sit: 6 Sit to/from Stand: 6 Bed to/from Chair: 6 Gait Training Does the Patient Walk?: Yes Gait (FIM): 5 Distance (FIM): 3=150 ft (x3) Gait Level of Assist: 5 Gait Persons Needed: 1 Gait Assistive Device: None pt. does not have LOB and only requires supervisory assist to know where to go , be lead etc. hangs on to husbands hand and seems upset if he is out of sight Stair Training Stair Training: Handrails/: 1 handrail Stairs (FIM): 5 #of Steps: 4 Stairs: Pattern: Reciprocal Level of Assist: 5 pt. could have done 12 but is so very difficult to persuade to do any activity. Balance Picking up an Object (QC): 6 Neuromuscular standing balance challenges for eyes closed, 360 degree turns, twisting, bending , narrow base etc, no LOB as well as floor TRFs no incident Assessment Current Status: Good Progress pts. dementia and confusion greatly limit her participation in functional activities with this therapist PT Leather Stamper Goals Nursing Home Goals PT Leather Stamper Goals Time Frame: Nov 07, 2016 Transfers (B,C,W/C) (FIM): 6 Sit to Lying (QC): 5 Lying-Sitting on Side/Bed(QC): 5 Sit to Stand (QC): 5 Rollin Roll Left to Right (QC): 5 Chair/[id number]-[id number] Xfer(QC): 5 Car Transfer (QC): 5 Does the Patient Walk: Yes Gait (FIM): 5 Gait distance (FIM): 3=150 ft Walk 10 feet (QC): 5 Walk 10ft-Uneven Surface(QC): 5 Walk 50ft with 2 Turns (QC): 5 Walk 150 ft (QC): 5 Gait Level of Assist: 5 Gait Assistive Device: None Stairs (FIM): 2 # of Steps: 4 1 Step (curb) (QC): 5 4 Steps (QC): 5 12 Steps (QC): 9 Stairs Level Of Assist: 5 Picking up an Object (QC): 6 PT Plan Treatment/Plan Treatment Plan: Continue Plan of Care Treatment Plan: Bed Mobility, Education, Functional Activity Kareen, Functional Strength, Group Therapy, Gait, Safety, Therapeutic Exercise, Transfers Treatment Duration: Nov 07, 2016 Frequency: At least 5-7 days/Wk (IRF) Estimated Hrs Per Day: 1.5 hours per day Patient and/or Family Agrees t: Yes Safety Risks/Education Patient Education: Gait Training, Transfer Techniques, Steps, Correct Positioning, Disease Process, Safety Issues Teaching Recipient: Patient, Primary Caregiver, Significant Other Teaching Methods: Demonstration, Discussion Response to Teaching: Verbalize Understanding, Unable to Comprehend, Reinforcement Needed Time/GCodes Time In: 1000 Time Out: 1100 Total Billed Treatment Time: 60 Total Billed Treatment 1,NM25m,GT5m,FA20m G Codes Necessary: LUDMILA Olvera DERRICK BOAT CAPTAIN Oct 27, 2016 11:10
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
--- NOTE | 2016-10-27 15:05 | PM & R (SOAP) Progress Note ---
Subjective Time Seen by Provider: 11:50 Subjective/Events-last exam Patient was seen in her room earlier today Discussed case with Nursing service Patient modified Independent for mobility without a gait aide but STmemory impaired Appreciate Therapy and DR Merrill notes and current labs Objective Exam Last Set of Vital Signs Vital Signs Date Time Temp Pulse Resp B/P (MAP) Pulse Ox O2 Delivery O2 Flow Rate FiO2 10/27/16 09:51 Room Air 10/27/16 05:24 98.2 62 16 152/70 96 Capillary Refill : I&O Intake and Output 10/27/16 00:00 Intake Total 850 ml Balance 850 ml Intake Oral 850 ml # Voids 5 General: Alert, Cooperative, No Acute Distress HEENT: Atraumatic, PERRLA, EOMI, Mucous Memb Moist/Platinum Neck: Supple, No JVD Lungs: Clear to Auscultation Heart: Regular Rate Abdomen: Normal Bowel Sounds, Soft, No Tenderness Extremities: No Edema Neuro: Other (mild CATY LIBB weakness Short term memory impairment) Results Lab Laboratory Tests 10/25/16 04:57: White Blood Count 7.8, Red Blood Count 3.31L, Hemoglobin 10.1L, Hematocrit 31L, Mean Corpuscular Volume 95, Mean Corpuscular Hemoglobin 31, Mean Corpuscular Hemoglobin Concent 32, Red Cell Distribution Width 12.6, Platelet Count 242, Mean Platelet Volume 9.6, Neutrophils (%) (Auto) 42, Lymphocytes (%) (Auto) 43, Monocytes (%) (Auto) 10, Eosinophils (%) (Auto) 5, Basophils (%) (Auto) 1, Neutrophils # (Auto) 3.3, Lymphocytes # (Auto) 3.3, Monocytes # (Auto) 0.7, Eosinophils # (Auto) 0.4H, Basophils # (Auto) 0.1, Sodium Level 139, Potassium Level 4.1, Chloride Level 107, Carbon Dioxide Level 20L, Anion Gap 12, Blood Urea Nitrogen 27H, Creatinine 1.22, Estimat Glomerular Filtration Rate 43, BUN/ Creatinine Ratio 22, Glucose Level 94, Calcium Level 8.9, Total Bilirubin 0.3, Aspartate Amino Transf (AST/SGOT) 29, Alanine Aminotransferase (ALT/SGPT) 24, Alkaline Phosphatase 50, Total Protein 6.1L, Albumin 3.5 Assessment/Plan Assessment 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
--- NOTE | 2016-10-27 15:10 | Individualized Plan of Care ---
Individualized Plan of Care Rehab Nursing IPOC Order Admission Date Oct 24, 2016 at 16:53 Current Orders Orders Basic Metabolic Panel (10/28/16 06:00) Cbc No Diff (10/28/16 06:00) Patient Visit (10/27/16 ) Speech Sound Lang Comp (10/27/16 ) Patient Visit (10/27/16 ) Ex Neuromuscular, Ea 15 Min (10/27/16 ) Gait Training, Ea 15 Min (10/27/16 ) Functional Activities, Ea 15 (10/27/16 ) Rehab Nursing Orders: Diseage Management, Edu in Press Rel Techn, Hydration Management, Nutrition Management, Pain Management Toilet every (bladder): (hrs): 2 hours while awake PRN PT IPOC Problem List: Activity Tolerance, Safety Treatment Plan: Continue Plan of Care Bed Mobility, Education, Functional Activity Kareen, Functional Strength, Group Therapy, Gait, Safety, Therapeutic Exercise, Transfers Treatment Duration: Nov 07, 2016 Frequency: Twice Daily Estimated Hrs Per Day: 1.5 hours per day OT IPOC Problems: Decreased Activ Tolerance, Decreased Safety Aware, Decreased UE Strength, Dependent Transfers, Impaired Bed Mobility, Impaired Cognition, Impaired Coordination, Impaired Funct Balance, Impaired I ADL's, Impaired Self- Care Skills, Restricted Funct UE ROM, Visual-Perceptual Deficit Plan of Care: ADL Retraining, Caregiver Training, Cognitive Retraining, Functional Mobility, UE Funct Exercise/Act, UE Neuromus Re-Ed/Coord, Visual/ Perceptual Retrain Treatment Duration: Nov 08, 2016 Frequency: Twice Daily Estimated Hrs Per Day: 1.[address] IPOC Speech Therapy Treatment Plan: Continue Plan of Care Frequency: Daily Estimated Hrs Per Day: .5 hour per day Physician IPOC Medical Issues being managed closely and that require the 24 hour availability of a physician: HTN Chronic back pain Medical Issues: DVT Prophylaxis, Falls Precautions, Fluid/Electrolyte/ Nutrition Balance, Infection Protection, Pain Management, Other (List) (as per above) Brief Synthesis of Preadmission Screen, Post-Admission Evaluation, and Therapy Evaluations: 81 yo female with a rt CVA with residual Left HP who had been Fairly independent prior to this and living with spouse Needed some assistance due to memory loss which patient spouse relates to an Abdominal surgery 18 moths ago noted postop.PMH Duodenal ulcer HTN Hypercholesteremia Medical Prognosis: Good Anticipated Length of Stay: 5 days Rehab Goals Return to PLOF as outlined above Anticipated discharge destinat: Home with spouse with outpatient OT TIFFANY DURAN MD Oct 27, 2016 15:10
--- NOTE | 2016-10-27 15:13 | Occupational Ther Daily Note ---
OT Current Status-Daily Note Subjective No pain reported. Appearance Pt. sitting in chair. Spouse and son in law in room. Pt. refuses all attempts at first. Spouse gives her the choice of ambulating with OT, or showering. Pt. chooses to shower. OT goes to get towels. Comes back and sets up shower. OT attempts to initiate with pt. Pt. has forgot what she agreed to do. States , "I'm not showering." Pt. encourages her, but she refuses. Spouse states, "fine, lets go for a walk." Mental Status/Objective Patient Orientation: Confused Functional [place] Measure 0=Not Assessed/NA 4=Minimal Assistance 1=Total Assistance 5=Supervision or Setup 2=Maximal Assistance 6=Modified [place] 3=Moderate Assistance 7=Complete [place] ADL-Treatment Functional [place] Measure 0=Not Assessed/NA 4=Minimal Assistance 1=Total Assistance 5=Supervision or Setup 2=Maximal Assistance 6=Modified [place] 3=Moderate Assistance 7=Complete IndependenceIRFPAI Quality Coding Scale 6 Independent with activity with or without an assistive device 5 Patient requires set up or clean up by helper. Patient completes activity by themselves 4 Supervision or touching assist (CGA). [place] provide cues , steadying assist 3 The helper provides less than half the effort to complete the activity 2 The helper provides more than half the effort to complete the activity 1 Dependent. The helper does all the effort to complete an activity 7 Patient refused to complete or attempt activity 9 The patient did not perform the activity before the current illness or injury 88 Not attempted due to Medical conditions or safety concerns Transfers (B, C, W/C) (FIM): 5 (Pt. is physically independent to ambulate, but requires Supervision due to low cognitive status.) After multiple attempts to ambulate, shower, or work on fine motor skills, pt's spouse was able to encourage her to ambulate. Pt. and spouse know a [employer] that works downstairs. Spouse able to convince her by telling her that they would go see this aldair. Ambulated downstairs. Pt. required cues to be aware of environment. For example, when elevator doors opened, pt. would stand there, and not initiate getting off of elevator unless she was told to do so. Pt. wanted to sit down periodically throughout walk, and would take rest breaks. Did agree to go into chapel, in which she seemed to enjoy looking at stained glass. Spoke with her and spouse about activities that they can do at home to increase use of fine motor skills in left hand. Spouse verbalizes understanding of this. Pt. began to notice cars in parking lot, and began to ask spouse if they could go find theirs. Decided it was time to ambulate back to room. Came to 2nd floor, and pt. adamant to sit in dining area instead of in room. Pt. with spouse and son in law. All needs met. Education OT Patient Education: Correct positioning, Energy conservation, Exercise program, Home exercise program, Modified ADL techniques, Progress toward Goal/ Update tx plan, Purpose of tx/functional activities, Reviewed precautions, Rehab process, Transfer techniques Teaching Recipient: Patient Teaching Methods: Demonstration, Discussion Response to Teaching: Verbalize Understanding, Return Demonstration OT Short Term Goals Short Term Goals 1=Demonstrate adherence to instructed precautions during ADL tasks. 2=Patient will verbalize/demonstrate understanding of assistive devices/ modifications for ADL. 3=Patient will improve strength/tolerance for activity to enable patient to perform ADL's. OT Director Of Orthopedics Goals [facility] Goals Time Frame: Nov 08, 2016 Eating (FIM): 6 Eating (QC): 6 Groomin Oral Hygiene (QC): 5 Bathing(FIM): 5 Shower/Bathe Self (QC): 5 Upper Body Dressing(FIM): 5 Upper Body Dressing (QC): 5 Lower Body Dressing(FIM): 5 Lower Body Dressing (QC): 5 On/Off Footwear (QC): 5 Toileting(FIM): 6 Toileting Hygiene (QC): 6 Transfers (B,C,W/C) (FIM): 6 Toilet/Commode Transfer(FIM): 6 Toilet/Commode Transfer (QC): 6 Shower Transfer(FIM): 5 Comprehension(FIM): 4 Expression (FIM): 5 Social Interaction(FIM): 5 Problem Solving(FIM): 4 Memory(FIM): 3 Additional Goals: 1-Demonstrate ADL Tasks, 2-Verbalize Understanding, 3- ImproveStrength/Kareen 1=Demonstrate adherence to instructed precautions during ADL tasks. 2=Patient will verbalize/demonstrate understanding of assistive devices/ modifications for ADL. 3=Patient will improve strength/tolerance for activity to enable patient to perform ADL's. OT Education/Plan Problem List/Assessment Assessment: Decreased Activ Tolerance, Decreased Safety Aware, Decreased UE Strength, Impaired Cognition, Impaired Coordination, Impaired I ADL's, Impaired Self-Care Skills Discharge Recommendations Plan/Recommendations: Continue POC Therapy D/C Recommendations: Home w/ Family Support, Occupational Therapy Outpatient Treatment Plan/Plan of Care Treatment,Training & Education: Yes Patient would benefit from OT for education, treatment and training to promote independence in ADL's, mobility, safety and/or upper extremity function for ADL' s. Plan of Care: ADL Retraining, Caregiver Training, Cognitive Retraining, Functional Mobility, UE Funct Exercise/Act, UE Neuromus Re-Ed/Coord, Visual/ Perceptual Retrain Treatment Duration: Nov 08, 2016 Frequency: At least 5-7 days/Wk (IRF) Estimated Hrs Per Day: 1.5 hours per day Agreement: Yes Rehab Potential: Fair Time/GCodes Start Time: 13:35 Stop Time: 14:30 Total Time Billed (hr/min): 55 Billed Treatment Time 1, FA x 4 RENAY LAYNE OT Oct 27, 2016 15:13
[2016-10-27 18:12] VITALS: BP 161/79
[2016-10-27] MEDS ORDERED: NITR0.4T39 SL (19:25)
[2016-10-27] MEDS ORDERED: CYCL1DRO OU (19:25)
[2016-10-27] MEDS: ATORVASTATIN 40 MG (LIPITOR) TABLET PO SCH (20:02)
[2016-10-28] MEDS: OMEGA 3 (FISH OIL) 1000 MG CAP PO SCH (05:32)
[2016-10-28] MEDS: MULTIVIT W/MINERALS TAB (THERAGRAN M) PO SCH (05:33)
[2016-10-28] MEDS: PANTOPRAZOLE 20 MG TABLET (PROTONIX) PO SCH (05:33)
[2016-10-28] MEDS: KCL 10 MEQ TAB (MICRO K) PO SCH (05:33)
[2016-10-28 05:51] LABS: MEAN PLATELET VOLUME 9.5 FL (7.4-10.4); RED BLOOD COUNT 3.34 10^6/uL (4.35-5.85); RED CELL DISTRIBUTION WIDTH 12.4 % (10.0-14.5); WHITE BLOOD COUNT 7.1 10^3/uL (4.3-11.0)
[2016-10-28 06:00] VITALS: BP 173/68
[2016-10-28 06:09] LABS: CALCIUM 9.1 MG/DL (8.5-10.1); CREATININE SERUM 1.18 MG/DL (0.60-1.30); POTASSIUM 4.2 MMOL/L (3.6-5.0)
--- NOTE | 2016-10-28 08:13 | PM & R (SOAP) Progress Note ---
Subjective Time Seen by Provider: 07:55 Subjective/Events-last exam Patient was seen in her room with RN and her spouse Patient Modified Independent for mobility. Review of Systems Neurological: Other (memory loss) Objective Exam Last Set of Vital Signs Vital Signs Date Time Temp Pulse Resp B/P (MAP) Pulse Ox O2 Delivery O2 Flow Rate FiO2 10/28/16 06:00 97.8 63 14 173/68 96 Room Air Capillary Refill : I&O Intake and Output 10/28/16 00:00 Intake Total 850 ml Balance 850 ml Intake Oral 850 ml # Voids 8 General: Alert, Cooperative, No Acute Distress HEENT: Atraumatic, PERRLA, EOMI, Mucous Memb Moist/[place] Neck: Supple, No JVD Lungs: Clear to Auscultation Heart: Regular Rate Abdomen: Normal Bowel Sounds, Soft, No Tenderness Extremities: No Edema Neuro: Other Results Lab Laboratory Tests 10/28/16 05:23: White Blood Count 7.1, Red Blood Count 3.34L, Hemoglobin 10.1L, Hematocrit 32L, Mean Corpuscular Volume 95, Mean Corpuscular Hemoglobin 30, Mean Corpuscular Hemoglobin Concent 32, Red Cell Distribution Width 12.4, Platelet Count 240, Mean Platelet Volume 9.5, Sodium Level 139, Potassium Level 4.2, Chloride Level 108H, Carbon Dioxide Level 21, Anion Gap 10, Blood Urea Nitrogen 21H, Creatinine 1.18, Estimat Glomerular Filtration Rate 44, BUN/Creatinine Ratio 18 , Glucose Level 92, Calcium Level 9.1 Assessment/Plan Assessment 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 New Rxs provided by Transmission to their Pharmacy and written copy TIFFANY DURAN MD Oct 28, 2016 08:13
[2016-10-28] MEDS: ARTIFICAL TEARS 0.4 ML UNIT DOSE (REFRESH PLUS) OU SCH (08:43)
--- NOTE | 2016-10-28 08:44 | Physical Therapy Daily Note ---
PT Daily Note-Current Subjective Patient in room with her pre tx, has pain of 3/10 in low back and right leg. Patient is discharging from this facility today. Appearance Patient in room with her post tx. Mental Status Patient Orientation: Person, Place Transfers Functional [place] Measure 0=Not Assessed/NA 4=Minimal Assistance 1=Total Assistance 5=Supervision or Setup 2=Maximal Assistance 6=Modified [place] 3=Moderate Assistance 7=Complete IndependenceIRFPAI Quality Coding Scale 6 Independent with activity with or without an assistive device 5 Patient requires set up or clean up by helper. Patient completes activity by themselves 4 Supervision or touching assist (CGA). [place] provide cues , steadying assist 3 The helper provides less than half the effort to complete the activity 2 The helper provides more than half the effort to complete the activity 1 Dependent. The helper does all the effort to complete an activity 7 Patient refused to complete or attempt activity 9 The patient did not perform the activity before the current illness or injury 88 Not attempted due to Medical conditions or safety concerns Transfers (B, C, W/C) (FIM): 6 Scootin Rollin Roll Left to Right (QC): 6 Supine to/from Sit: 6 Sit to/from Stand: 6 Sit to Lying (QC): 6 Sit to Stand (QC): 6 Patient performs bed mobility and transfers with mod I. Gait Training Gait (FIM): 5 Distance: 500' Walk 10 feet (QC): 4 Walk 50 ft with 2 Turns(QC): 4 Walk 150 ft (QC): 4 Walking 10ft/uneven surface-QC: 4 Gait Level of Assist: 5 Gait Persons Needed: 1 Gait Assistive Device: None Patient can ambulate 500' without an assistive device with SBA (including 50' with at least 2 turns of 90 degrees and 10' over an uneven surface). She only needs SBA due to confusion and needs cues for direction. Wheelchair Training Does the Pt Use a Wheelchair?: No Stair Training Stair Training: Handrails/: 1 handrail Stairs (FIM): 2 #of Steps: 8 1 Step (curb) (QC): 4 4 Steps (QC): 4 12 Steps (QC): 88 Stairs: Pattern: Step to Level of Assist: 5 Patient can go up and down 8 steps using 1 handrail with SBA. She refused to do more due to knee pain. Balance Picking up an Object (QC): 6 Treatments bed mobility and transfers, ambulation, stairs Assessment Current Status: Fair Progress Patient needs SBA for ambulation only because she is confused and needs cues for direction. PT [employer] Worker Goals Shelter Goals PT Shelter Goals Time Frame: Nov 07, 2016 Transfers (B,C,W/C) (FIM): 6 (met) Sit to Lying (QC): 5 (met) Lying-Sitting on Side/Bed(QC): 5 (met) Sit to Stand (QC): 5 (met) Rollin (met) Roll Left to Right (QC): 5 (mt) Chair/Pdy[place]aa-[place]he[place] Xfer(QC): 5 Car Transfer (QC): 5 Does the Patient Walk: Yes Gait (FIM): 5 (met) Gait distance (FIM): 3=150 ft Walk 10 feet (QC): 5 (met) Walk 10ft-Uneven Surface(QC): 5 (met) Walk 50ft with 2 Turns (QC): 5 (met) Walk 150 ft (QC): 5 (met) Gait Level of Assist: 5 (met) Gait Assistive Device: None Stairs (FIM): 2 (met) # of Steps: 4 (met) 1 Step (curb) (QC): 5 (met) 4 Steps (QC): 5 (met) 12 Steps (QC): 9 Stairs Level Of Assist: 5 (met) Picking up an Object (QC): 6 (met) PT Plan Problem List Problem List: Activity Tolerance, Functional Strength, Safety, Balance, Gait, Transfer Treatment/Plan Treatment Plan: Continue Plan of Care Treatment Plan: Bed Mobility, Education, Functional Activity Kareen, Functional Strength, Group Therapy, Gait, Safety, Therapeutic Exercise, Transfers Treatment Duration: Nov 07, 2016 Frequency: Twice Daily Estimated Hrs Per Day: 1.5 hours per day Patient and/or Family Agrees t: Yes Safety Risks/Education Patient Education: Gait Training, Transfer Techniques, Steps, Correct Positioning, Safety Issues Teaching Recipient: Patient Teaching Methods: Demonstration, Discussion Response to Teaching: Reinforcement Needed Time/GCodes Time In: 825 Time Out: 840 Total Billed Treatment Time: 15 Total Billed Treatment 1 visit GT 15' JOSE BULLARD PT Oct 28, 2016 08:44
[2016-10-28] MEDS: LOSARTAN 50 MG (COZAAR) TAB PO SCH (08:45)
[2016-10-28] MEDS: amLODIPine 5 MG (NORVASC) TAB PO SCH (08:45)
[2016-10-28] MEDS: ASPIRIN E.C. 81 MG (ECOTRIN) TAB PO SCH (08:45)
--- NOTE | 2016-10-28 08:51 | Therapy Team Discharge Summary ---
Therapy Discharge Summary Discharge Recommendations Date of Discharge 10/28/16 Therapy D/C Recommendations: Home w/ Family Support, Occupational Therapy Outpatient Physical Therapy Patient came to rehab following a CVA. Upon evaluation patient performed bed mobility with SBA and transfers with CGA, ambulated 200' with CGA/Dash using QUANTITATIVE EQUITY HEAD , and she refused to perform stairs. Patient has been performing bed mobility and transfer training, balance and endurance training, functional strengthening , stair training, and gait training. Patient has made good progress and has met all of her care home goals except for a car transfer. Now, patient performs bed mobility and transfers with mod I, ambulates 500' without an assistive device with SBA (including 50' with at least 2 turns of 90 degrees and 10' over an uneven surface), and can go up and down 8 steps using 1 handrail with SBA, and can pickle maker an object from the floor with mod I. Patient is discharging from this facility today and will be discharged from PT at this time. PT Usp Goals Usp Goals PT Usp Goals Time Frame: Nov 07, 2016 Transfers (B,C,W/C) (FIM): 6 (met) Roll Left to Right (QC): 5 (mt) Sit to Lying (QC): 5 (met) Lying-Sitting on Side/Bed(QC): 5 (met) Sit to Stand (QC): 5 (met) Chair/Exa-lo-Vtlsh Xfer(QC): 5 Car Transfer (QC): 5 Does the Patient Walk: Yes Gait (FIM): 5 (met) Gait distance (FIM): 3=150 ft Walk 10 feet (QC): 5 (met) Walk 10ft-Uneven Surface(QC): 5 (met) Walk 50ft with 2 Turns (QC): 5 (met) Walk 150 ft (QC): 5 (met) Gait Level of Assist: 5 (met) Gait Assistive Device: None Stairs (FIM): 2 (met) # of Steps: 4 (met) 1 Step (curb) (QC): 5 (met) 4 Steps (QC): 5 (met) 12 Steps (QC): 9 Stairs Level Of Assist: 5 (met) Picking up an Object (QC): 6 (met) OT Utility Aide Goals Utility Aide Goals Time Frame: Nov 08, 2016 Eating (FIM): 6 Eating (QC): 6 Oral Hygiene (QC): 5 Grooming(FIM): 5 Bathing(FIM): 5 Shower/Bathe Self (QC): 5 Upper Body Dressing(FIM): 5 Upper Body Dressing (QC): 5 Lower Body Dressing(FIM): 5 Lower Body Dressing (QC): 5 On/Off Footwear (QC): 5 Toileting(FIM): 6 Toileting Hygiene (QC): 6 Transfers (B,C,W/C) (FIM): 6 Toilet/Commode Transfer(FIM): 6 Toilet/Commode Transfer (QC): 6 Shower Transfer(FIM): 5 Comprehension(FIM): 4 Expression (FIM): 5 Social Interaction(FIM): 5 Problem Solving(FIM): 4 Memory(FIM): 3 Additional Goals: 1-Demonstrate ADL Tasks, 2-Verbalize Understanding, 3- ImproveStrength/Kareen 1=Demonstrate adherence to instructed precautions during ADL tasks. 2=Patient will verbalize/demonstrate understanding of assistive devices/ modifications for ADL. 3=Patient will improve strength/tolerance for activity to enable patient to perform ADL's. Speech Utility Aide Goals Usp Goals 1. The patient will demonstrated increased cognitive skills for improved function and safety with ADL's in the least restrictive setting. Time Frame: Two Weeks Comprehension: 4 Expression: 5 Social Interaction: 5 Problem Solvin Memory: 3 JOSE BULLARD PT Oct 28, 2016 08:51
[2016-10-28] MEDS: ACETAMINOPHEN 500 MG TAB (TYLENOL) PO PRN (08:53)
--- NOTE | 2016-10-28 09:44 | Therapy Team Discharge Summary ---
Therapy Discharge Summary Discharge Recommendations Date of Discharge 10/28/2016 Therapy D/C Recommendations: Home w/ Family Support, Occupational Therapy Outpatient Speech-Language Pathology The patient was recently admitted to [facility] following an ischemic right CVA. Upon admission, the patient demonstrated a moderate cognitive impairment, most notably in the area of memory. Skilled speech pathology goals were set to address functional memory, however, the patient has chosen to discharge on this date. As the patient did not participate in therapy , speech pathology goals were not met. The patient will discharge home with spouse at this time. No additional speech pathology services are warranted. PT Usp Goals Mapping Engineer Goals PT Mapping Engineer Goals Time Frame: Nov 07, 2016 Transfers (B,C,W/C) (FIM): 6 (met) Roll Left to Right (QC): 5 (mt) Sit to Lying (QC): 5 (met) Lying-Sitting on Side/Bed(QC): 5 (met) Sit to Stand (QC): 5 (met) Chair/Vnk-kw-Uaact Xfer(QC): 5 Car Transfer (QC): 5 Does the Patient Walk: Yes Gait (FIM): 5 (met) Gait distance (FIM): 3=150 ft Walk 10 feet (QC): 5 (met) Walk 10ft-Uneven Surface(QC): 5 (met) Walk 50ft with 2 Turns (QC): 5 (met) Walk 150 ft (QC): 5 (met) Gait Level of Assist: 5 (met) Gait Assistive Device: None Stairs (FIM): 2 (met) # of Steps: 4 (met) 1 Step (curb) (QC): 5 (met) 4 Steps (QC): 5 (met) 12 Steps (QC): 9 Stairs Level Of Assist: 5 (met) Picking up an Object (QC): 6 (met) OT Mapping Engineer Goals Mapping Engineer Goals Time Frame: Nov 08, 2016 Eating (FIM): 6 Eating (QC): 6 Oral Hygiene (QC): 5 Grooming(FIM): 5 Bathing(FIM): 5 Shower/Bathe Self (QC): 5 Upper Body Dressing(FIM): 5 Upper Body Dressing (QC): 5 Lower Body Dressing(FIM): 5 Lower Body Dressing (QC): 5 On/Off Footwear (QC): 5 Toileting(FIM): 6 Toileting Hygiene (QC): 6 Transfers (B,C,W/C) (FIM): 6 Toilet/Commode Transfer(FIM): 6 Toilet/Commode Transfer (QC): 6 Shower Transfer(FIM): 5 Comprehension(FIM): 4 Expression (FIM): 5 Social Interaction(FIM): 5 Problem Solving(FIM): 4 Memory(FIM): 3 Additional Goals: 1-Demonstrate ADL Tasks, 2-Verbalize Understanding, 3- ImproveStrength/Kareen 1=Demonstrate adherence to instructed precautions during ADL tasks. 2=Patient will verbalize/demonstrate understanding of assistive devices/ modifications for ADL. 3=Patient will improve strength/tolerance for activity to enable patient to perform ADL's. Speech Usp Goals Usp Goals 1. The patient will demonstrated increased cognitive skills for improved function and safety with ADL's in the least restrictive setting. Time Frame: Two Weeks Comprehension: 4 (NOT MET) Expression: 5 (NOT MET) Social Interaction: 5 (NOT MET) Problem Solvin (NOT MET) Memory: 3 (NOT MET) KEVIN GOYAL Oct 28, 2016 09:44
--- NOTE | 2016-10-28 10:17 | Therapy Team Discharge Summary ---
Therapy Discharge Summary Discharge Recommendations Date of Discharge 10-28-16 Therapy D/C Recommendations: Home w/ Family Support, Occupational Therapy Outpatient Occupational Therapy Pt. seen one time for evaluation and then for several treatments. Pt. presents with dementia and confusion. Does not understand why she is here. At evaluation, pt. required mod/min assistance for UE/LE dressing due to fine motor coordination deficits in left UE. At the following treatment session, pt. adamant that she did not want to shower. Spouse okay with this. Pt.left today before final shower this a.m. Due to significant cognitive deficits ( which spouse reports as baseline), pt. did not want to participate, and was agitated when asked to do specific tasks. Spouse was educated in tasks that he could incorporate at home to increase the use of left UE. Recommend outpt. OT to continue with strengthening and coordination of left UE. PT Program Consultant Goals Nursing Home Goals PT Nursing Home Goals Time Frame: Nov 07, 2016 Transfers (B,C,W/C) (FIM): 6 (met) Roll Left to Right (QC): 5 (mt) Sit to Lying (QC): 5 (met) Lying-Sitting on Side/Bed(QC): 5 (met) Sit to Stand (QC): 5 (met) Chair/Imm-dn-Jhjfe Xfer(QC): 5 Car Transfer (QC): 5 Does the Patient Walk: Yes Gait (FIM): 5 (met) Gait distance (FIM): 3=150 ft Walk 10 feet (QC): 5 (met) Walk 10ft-Uneven Surface(QC): 5 (met) Walk 50ft with 2 Turns (QC): 5 (met) Walk 150 ft (QC): 5 (met) Gait Level of Assist: 5 (met) Gait Assistive Device: None Stairs (FIM): 2 (met) # of Steps: 4 (met) 1 Step (curb) (QC): 5 (met) 4 Steps (QC): 5 (met) 12 Steps (QC): 9 Stairs Level Of Assist: 5 (met) Picking up an Object (QC): 6 (met) OT Nursing Home Goals Nursing Home Goals Time Frame: Nov 08, 2016 Eating (FIM): 6 (not met) Eating (QC): 6 (not met) Oral Hygiene (QC): 5 (not met) Grooming(FIM): 5 (not met) Bathing(FIM): 5 (not met) Shower/Bathe Self (QC): 5 (not met) Upper Body Dressing(FIM): 5 (not met) Upper Body Dressing (QC): 5 (not met) Lower Body Dressing(FIM): 5 (not met) Lower Body Dressing (QC): 5 (not met) On/Off Footwear (QC): 5 (not met) Toileting(FIM): 6 (not met) Toileting Hygiene (QC): 6 (not met) Transfers (B,C,W/C) (FIM): 6 (not met) Toilet/Commode Transfer(FIM): 6 (not met) Toilet/Commode Transfer (QC): 6 (not met) Shower Transfer(FIM): 5 (not met) Comprehension(FIM): 4 (NOT MET) Expression (FIM): 5 (NOT MET) Social Interaction(FIM): 5 (NOT MET) Problem Solving(FIM): 4 (NOT MET) Memory(FIM): 3 (NOT MET) Additional Goals: 1-Demonstrate ADL Tasks, 2-Verbalize Understanding, 3- ImproveStrength/Kareen 1=Demonstrate adherence to instructed precautions during ADL tasks. 2=Patient will verbalize/demonstrate understanding of assistive devices/ modifications for ADL. 3=Patient will improve strength/tolerance for activity to enable patient to perform ADL's. Speech Program Consultant Goals Program Consultant Goals 1. The patient will demonstrated increased cognitive skills for improved function and safety with ADL's in the least restrictive setting. Time Frame: Two Weeks Comprehension: 4 (NOT MET) Expression: 5 (NOT MET) Social Interaction: 5 (NOT MET) Problem Solvin (NOT MET) Memory: 3 (NOT MET) RENAY LAYNE OT Oct 28, 2016 10:17
[2016-10-28 10:41] VITALS: BP 173/68
== END 2016-10-28 09:30 | disposition home or self-care (01) | DRG 57 ==
LOC: ENPENDDIS 10-28 12:00
PROVIDERS: ADMIT Physical Medicine & Rehabilitation; ATTEND Physical Medicine & Rehabilitation
DX: I69.354 Hemiplegia and hemiparesis following cerebral infarction affecting left non-dominant side (principal); I69.392 Facial weakness following cerebral infarction; F03.90 Unspecified dementia, unspecified severity, without behavioral disturbance, psychotic disturbance, mood disturbance, and anxiety; D64.9 Anemia, unspecified; I10 Essential (primary) hypertension; E78.00 Pure hypercholesterolemia, unspecified; M41.9 Scoliosis, unspecified
CPT/HCPCS: 36415; 80048; 80053; 85025; 85027

== ENCOUNTER 2017-01-15 14:15 | Outpatient (RCR) | payer MEDICARE, OTHER ==
[~2017-01-15 14:15] MED LIST: ACET-93 PO; AMLO5TAB2 PO; AMLO5TAB4 PO; ASPI-999 PO; ATOR40TA PO; ATOR40TA70 PO; CELE200C PO; CYCL1DRO OU; ESTR0.62 PO; FOLI0.8T2 PO; HYDR-756 PO; LOSA100T28 PO; LOSA100T3 PO; METO-270 PO; METO-351 PO; METO-352 PO; NITR0.4T39 SL; OLME40TA12 PO; OMEG1CAP PO; OMEP20TA33 PO; PITA2TAB2 PO; POTA10TA PO
== END 2017-01-17 | disposition home or self-care (01) ==
PROVIDERS: ATTEND Family Medicine
DX: I69.354 Hemiplegia and hemiparesis following cerebral infarction affecting left non-dominant side (principal)

== ENCOUNTER → 2019-05-10 | Outpatient (CLI) | payer MEDICARE, OTHER ==
[~2019-05-10] MED LIST changes: -AMLO5TAB2 PO; +AMLO5TAB9 PO; +HYDR-4227 PO; -HYDR-756 PO; -LOSA100T28 PO; +LOSA100T57 PO; -METO-270 PO; +MTP25TSR PO
[2019-05-10 12:44] LABS: HEMATOCRIT 35 % (35-52); HEMOGLOBIN 11.5 G/DL (11.5-16.0); MEAN CORPUSCULAR HEMOGLOBIN 32 PG (25-34); MEAN CORPUSCULAR HGB CONC 33 G/DL (32-36); MEAN CORPUSCULAR VOLUME 97 FL (80-99); MEAN PLATELET VOLUME 9.4 FL (7.4-10.4); NEUTROPHILS % (AUTO) 62 % (42-75); PLATELET COUNT 189 10^3/uL (130-400); RED CELL DISTRIBUTION WIDTH 12.2 % (10.0-14.5); WHITE BLOOD COUNT 12.4 10^3/uL (4.3-11.0)
[2019-05-10 12:45] LABS: BASOPHILS # (AUTO) 0.1 10^3/uL (0.0-0.1); BASOPHILS % (AUTO) 1 % (0-10); EOSINOPHILS # (AUTO) 0.1 10^3/uL (0.0-0.3); EOSINOPHILS % (AUTO) 1 % (0-10); LYMPHOCYTES # (AUTO) 3.9 X 10^3 (1.0-4.0); LYMPHOCYTES % (AUTO) 31 % (12-44); MONOCYTES # (AUTO) 0.7 X 10^3 (0.0-1.0); MONOCYTES % (AUTO) 5 % (0-12); NEUTROPHILS # (AUTO) 7.7 X 10^3 (1.8-7.8)
[2019-05-10 13:19] LABS: POTASSIUM 4.9 MMOL/L (3.6-5.0); SODIUM 138 MMOL/L (135-145)
[2019-05-10 13:20] LABS: ALANINE AMINOTRANSFERASE 22 U/L (0-55); ALBUMIN 4.2 GM/DL (3.2-4.5); ALKALINE PHOSPHATASE 82 U/L (40-136); AMYLASE 138 U/L (25-125); BILIRUBIN,TOTAL 0.4 MG/DL (0.1-1.0); BUN/CREATININE RATIO 16; CALCIUM 9.7 MG/DL (8.5-10.1); CARBON DIOXIDE 21 MMOL/L (21-32); CHLORIDE 104 MMOL/L (98-107); CREATININE SERUM 1.31 MG/DL (0.60-1.30); GFR ESTIMATED 39; GLUCOSE 122 MG/DL (70-105); LIPASE 69 U/L (8-78); TOTAL PROTEIN 6.9 GM/DL (6.4-8.2)
--- NOTE | 2019-05-10 14:43 | Diagnostic Imaging Report ---
INDICATION: Abdominal pain with nausea. FINDINGS: The bowel gas pattern is normal. No abnormal fecal loading. No air-containing dilated loops of bowel. There is severe lumbar spondylosis with leftward convexity degenerative rotoscoliosis. IMPRESSION: No bowel obstruction. Severe spondylosis and degenerative rotoscoliosis. Dictated by: Dictated on workstation # [id number]
== END ==
LOC: LAB FS 12:29
PROVIDERS: ATTEND Nurse Practitioner Family
DX: R10.13 Epigastric pain (principal); R11.0 Nausea; R19.7 Diarrhea, unspecified; Z87.11 Personal history of peptic ulcer disease; M47.816 Spondylosis without myelopathy or radiculopathy, lumbar region; M41.9 Scoliosis, unspecified
CPT/HCPCS: 36415; 74018; 80053; 82150; 83690; 85025; 87324; 87449

== ENCOUNTER 2021-10-01 07:28 | Inpatient (IN) | payer MEDICARE, OTHER ==
[2021-10-01] VITALS (7 sets, daily range): BP systolic 100–183; BP diastolic 35–84
[~2021-10-01] VITALS: Ht 152.4 cm; Wt 53.3 kg
[~2021-10-01 07:28] MED LIST changes: +AMLO-250 PO; -AMLO5TAB9 PO; +NF-LOVAZAC PO; -OMEG1CAP PO
[2021-10-01] MEDS ORDERED: NS IV 1000 ML 1,000 ML IV STA ×3 (07:46→09:14)
[2021-10-01 08:06] LABS: BASOPHILS % (AUTO) 0 % (0-10); EOSINOPHILS % (AUTO) 0 % (0-10); HEMATOCRIT 14 % (35-52); LYMPHOCYTES # (AUTO) 2.5 10^3/uL (1.0-4.0); LYMPHOCYTES % (AUTO) 12 % (12-44); MEAN CORPUSCULAR HEMOGLOBIN 30 pg (25-34); MEAN CORPUSCULAR HGB CONC 30 g/dL (32-36); MEAN CORPUSCULAR VOLUME 100 fL (80-99); MEAN PLATELET VOLUME 10.1 fL (9.0-12.2); MONOCYTES # (AUTO) 0.7 10^3/uL (0.0-1.0); MONOCYTES % (AUTO) 3 % (0-12); NEUTROPHILS # (AUTO) 17.9 10^3/uL (1.8-7.8); NEUTROPHILS % (AUTO) 83 % (42-75); PLATELET COUNT 359 10^3/uL (130-400); WHITE BLOOD COUNT 21.5 10^3/uL (4.3-11.0)
[2021-10-01 08:10] LABS: HEMOGLOBIN 4.2 g/dL (11.5-16.0)
[2021-10-01] MEDS ORDERED: PANTOPRAZOLE 40 MG (PROTONIX) VIAL IV STA (08:21)
[2021-10-01 08:23] LABS: BILIRUBIN,URINE NEGATIVE (NEGATIVE); CLARITY,URINE SL CLOUDY; COLOR,URINE YELLOW; GLUCOSE, URINE (UA) NEGATIVE (NEGATIVE); KETONES,URINE NEGATIVE (NEGATIVE); LEUKOCYTE ESTERASE ,URINE NEGATIVE (NEGATIVE); NITRITE,URINE NEGATIVE (NEGATIVE); PROTEIN,URINE NEGATIVE (NEGATIVE)
--- NOTE | 2021-10-01 08:23 | ED General ---
General Chief Complaint: Cardiac/General Problems Stated Complaint: LOW BP Nursing Triage Note: PT TO ROOM FS03 AFTER BEING ASSISTED OUT OF VEHICLE WITH C/O HYPOTENSION. STATES THAT PT'S BLOOD PRESSURE WAS LOW AT HOME WITH DIASTOLIC IN THE 40S. PT STATES THAT HE HAD TO CARRY PT TO VEHICLE TO COME TO ED. PT HAD TO BE LIFTED OUT OF VEHICLE AND INTO BED. STATES THAT PT HAD A STROKE 8-9 MONTHS AGO BUT THAT SHE NORMALLY WALKS AND TALKS. STATES THAT PT FELL YESTERDAY HITTING HER HEAD AND WAS UNABLE TO FEED SELF OR EAT AFTER. Source of Information: Spouse History of Present Illness Date Seen by Provider: Oct 01, 2021 Time Seen by Provider: 07:30 Initial Comments 86-year-old female presenting with altered mental status and decreased responsiveness. Patient's brought her in by private vehicle stating that she was having low blood pressure at home. He stated that she was also less responsive when she woke up this morning. He provides all history as the patient is not answering questions or following commands. He states she usually uses an adult brief since the stroke. She does usually talk and eat but he has to push her to drink. He states that she is able to walk on her own as well. However she did have a fall yesterday and fell onto the carpet causing an abrasion to her left forehead and lip. She did not lose consciousness. She has been eating less yesterday and then this morning when he woke her up she was having a low blood pressure and was less responsive for him. He states that is new for her and to change. He does report that she is a DO NOT RESUSCITATE patient. He reports Dr. Pérez is the primary care physician. She does appear to be dehydrated with dry mucous membranes. Timing/Duration: 1 Hour Associated Systoms: No Chest Pain, No Cough, No Diaphoresis, No Fever/Chills; Loss of Appetite, Malaise; No Nausea/Vomiting, No Rash, No Seizure, No Shortness of Air, No Syncope; Weakness (Generalized) Allergies and Home Medications Allergies Coded Allergies: amoxicillin (Verified Allergy, Unknown, 10/24/16) citalopram (Verified Allergy, Unknown, 10/24/16) diltiazem (Verified Allergy, Unknown, 10/24/16) gluten (Verified Allergy, Unknown, RASH, 10/24/16) hydrochlorothiazide (Verified Allergy, Unknown, 10/24/16) nitrofurantoin (Verified Allergy, Unknown, 10/24/16) quinapril (Verified Allergy, Unknown, 10/24/16) sertraline (Verified Allergy, Unknown, 10/24/16) triamterene (Verified Allergy, Unknown, 10/24/16) Patient Home Medication List Home Medication List Reviewed: Yes Amlodipine Besylate (Amlodipine Besylate) 5 Mg Tablet, 5 MG PO DAILY, (Reported) Entered as Reported by: CORTNEY XIONG on 10/27/16 105 Aspirin (Aspirin) 81 Mg Tab.chew, 81 MG PO DAILY, (Reported) Entered as Reported by: CORTNEY XIONG on 10/27/16 105 Atorvastatin Calcium (Atorvastatin Calcium) 40 Mg Tablet, 40 MG PO HS, (Reported ) Entered as Reported by: CORTNEY XIONG on 10/27/16 105 Cyclosporine (Restasis) 1 Each Droperette, 1 DROP OU BID Prescribed by: TIFFANY DURAN on 10/27/161924 Folic Acid/Vitamin B Comp W-C (Nephro-Alex Tablet) 0.8 Mg Tablet, 0.8 MG PO HS, (Reported) Entered as Reported by: CHINYERE GORDON on 10/24/161425 Losartan Potassium (Losartan Potassium) 100 Mg Tablet, 100 MG PO DAILY Prescribed by: TIFFANY DURAN on 10/27/161924 Metoprolol Succinate (Metoprolol Succinate) 25 Mg Tab.er.24h, 75 MG PO DAILY, (Reported) Entered as Reported by: CORTNEY XIONG on 10/27/161052 Nitroglycerin (Nitroglycerin) 0.4 Mg Tab.subl, 0.4 MG SL UD PRN for CHEST PAIN Prescribed by: TIFFANY DURAN on 10/27/161924 Sanborn-3 Acid Ethyl Esters (Lovaza) 1 Gm Capsule, 2 GM PO BID, (Reported) Entered as Reported by: CHINYERE GORDON on 10/24/16 190 Omeprazole Magnesium (Prilosec Otc) 20 Mg Tablet.dr, 20 MG PO DAILY, (Reported) Entered as Reported by: CHINYERE GORDON on 10/24/16 142 Potassium Chloride (K-Tab ER) 10 Meq Tablet.er, 10 MEQ PO BID, (Reported) Entered as Reported by: CHINYERE GORDON on 10/24/16 1426 Review of Systems Review of Systems Constitutional: see HPI EENTM: No ear discharge, No ear pain, No epistaxis, No nose congestion Respiratory: No cough, No hemoptysis Cardiovascular: No chest pain Gastrointestinal: No nausea; vomiting (4 days prior vomited dark coffee ground emesis at home) Genitourinary: decreased output Musculoskeletal: no symptoms reported Skin: No rash Psychiatric/Neurological: Weakness (general) Hematologic/Lymphatic: Denies Blood Clots Immunological/Allergic: no symptoms reported ROS and history from as patient was not answering questions Past Krgtjly-Vrurfr-Byikdh Hx Patient Social History Tobacco Use?: No Smoking Status: Never a Smoker Smokeless Tobacco Frequency: Never a User Use of E-Cig and/or Vaping dev: No Use of E-Cig and/or Vaping Jaswant: Never a User Substance use?: No Alcohol Use?: No Pt feels they are or have been: No Past Medical History Surgeries: Yes (Perforated duodenal ulcer) Cardiac: Yes High Cholesterol, Hypertension Neurological: Yes Stroke Gastrointestinal: Yes (Perforated duodenal ulcer) Ulcer Musculoskeletal: Yes (Osteoarthritis; Scoliosis- L3,4,5) Scoliosis, Chronic Back Pain Endocrine: No Cancer: No Physical Exam Vital Signs Vital Signs - First Documented 10/01/21 07:28 Temp 36.1 Pulse 74 Resp 12 B/P (MAP) 100/49 (66) O2 Delivery Room Air Capillary Refill : Less Than 3 Seconds Height, Weight, BMI Height: 5'2.00" Weight: 121lbs. 0.0oz. 54.517059ns; 16.00 BMI Method: General Appearance: Chronically ill, Cachetic HEENT: PERRL/EOMI; No Moist Mucous Membranes (dry mucous membranes) Neck: Non Tender, Supple Respiratory: Chest Non Tender, Lungs Clear, Decreased Breath Sounds Cardiovascular: Regular Rate, Rhythm, Normal Peripheral Pulses Gastrointestinal: Normal Bowel Sounds, No Pulsatile Mass, Non Tender, Soft Rectal: Decreased Tone, Heme Positive Stool Extremity: Normal Range of Motion, No Pedal Edema, Slow Capillary Refill Neurologic/Psychiatric: Alert (eyes open but not answering questions or following commands) Skin: Cool, Pallor Focused Exam Lactate Level 10/01/21 09:00: Lactic Acid Level 7.95*H Lactic Acid Level Laboratory Tests Test 10/01/21 09:00 Lactic Acid Level 7.95 MMOL/L (0.50-2.00) *H Progress/Results/Core Measures Suspected Sepsis SIRS Temperature: Pulse: 74 Respiratory Rate: 12 Laboratory Tests 10/01/21 07:39: White Blood Count 21.5H Blood Pressure 100 /49 Mean: 66 10/01/21 09:00: Lactic Acid Level 7.95*H Laboratory Tests 10/01/21 07:39: Creatinine 1.82H, INR Comment 1.1, Platelet Count 359, Total Bilirubin 0.4 Results/Orders Lab Results Laboratory Tests Test 10/01/21 07:39 10/01/21 07:47 10/01/21 08:10 10/01/21 08:12 Range/Units White Blood Count 21.5 H 4.3-11.0 10^3/uL Red Blood Count 1.41 L 3.80-5.11 10^6/uL Hemoglobin 4.2 *L 11.5-16.0 g/dL Hematocrit 14 *L 35-52 % Mean Corpuscular Volume 100 H 80-99 fL Mean Corpuscular Hemoglobin 30 25-34 pg Mean Corpuscular Hemoglobin Concent 30 L 32-36 g/dL Red Cell Distribution Width 15.7 H 10.0-14.5 % Platelet Count 359 130-400 10^3/uL Mean Platelet Volume 10.1 9.0-12.2 fL Immature Granulocyte % (Auto) 1 % Neutrophils (%) (Auto) 83 H 42-75 % Lymphocytes (%) (Auto) 12 12-44 % Monocytes (%) (Auto) 3 0-12 % Eosinophils (%) (Auto) 0 0-10 % Basophils (%) (Auto) 0 0-10 % Neutrophils # (Auto) 17.9 H 1.8-7.8 10^3/uL Lymphocytes # (Auto) 2.5 1.0-4.0 10^3/uL Monocytes # (Auto) 0.7 0.0-1.0 10^3/uL Eosinophils # (Auto) 0.0 0.0-0.3 10^3/uL Basophils # (Auto) 0.0 0.0-0.1 10^3/uL Immature Granulocyte # (Auto) 0.3 H 0.0-0.1 10^3/uL Prothrombin Time 14.6 12.2-14.7 SEC INR Comment 1.1 0.8-1.4 Activated Partial Thromboplast Time 22 L 24-35 SEC Sodium Level 141 135-145 MMOL/L Potassium Level 5.8 H 3.6-5.0 MMOL/L Chloride Level 106 98-107 MMOL/L Carbon Dioxide Level 17 L 21-32 MMOL/L Anion Gap 18 H 5-14 MMOL/L Blood Urea Nitrogen 56 H 7-18 MG/DL Creatinine 1.82 H 0.60-1.30 MG/DL Estimat Glomerular Filtration Rate 27 BUN/Creatinine Ratio 31 Glucose Level 147 H 70-105 MG/DL Calcium Level 9.1 8.5-10.1 MG/DL Corrected Calcium 10.1 8.5-10.1 MG/DL Magnesium Level 2.7 H 1.6-2.4 MG/DL Total Bilirubin 0.4 0.1-1.0 MG/DL Aspartate Amino Transf (AST/SGOT) 46 H 5-34 U/L Alanine Aminotransferase (ALT/SGPT) 36 0-55 U/L Alkaline Phosphatase 72 40-136 U/L Troponin I 0.62 *H <0.30 NG/ML Total Protein 5.9 L 6.4-8.2 GM/DL Albumin 2.8 L 3.2-4.5 GM/DL Test 10/01/21 09:00 Range/Units Lactic Acid Level 7.95 *H 0.50-2.00 MMOL/L My Orders Orders - YE ESTRELLA MD Cbc With Automated Diff (10/01/21 07:42) Magnesium (10/01/21 07:42) Chest 1 View Ap/Pa Only (10/01/21 07:42) Ekg Tracing (10/01/21 07:42) Comprehensive Metabolic Panel (10/01/21 07:42) Myoglobin Serum (10/01/21 07:42) Protime With Inr (10/01/21 07:42) Partial Thromboplastin Time (10/01/21 07:42) O2 (10/01/21 07:42) Monitor-Rhythm Ecg Trace Only (10/01/21 07:42) Ed Iv/Invasive Line Start (10/01/21 07:42) Troponin I Fs (10/01/21 07:42) Blood Culture (10/01/21 07:42) Ct Head/Face/Cervical Wo (10/01/21 07:42) Lactic Acid Analyzer (10/01/21 07:42) Influenza A & B Antigens (10/01/21 07:42) Covid 19 Inhouse Test (10/01/21 07:42) Mills Cath (10/01/21 07:42) Ua Culture If Indicated (10/01/21 07:42) Ns Iv 1000 Ml (Sodium Chloride 0.9%) (10/01/21 07:46) Fecal Occult Bedside (10/01/21 07:51) Manual Differential (10/01/21 07:39) Code/Resuscitation (10/01/21 08:21) Pantoprazole Injection (Protonix Injecti (10/01/21 08:21) Ns Iv 1000 Ml (Sodium Chloride 0.9%) (10/01/21 08:21) Hs C Reactive Protein (10/01/21 07:39) Bnp Douglas (10/01/21 07:39) Ed Admission (Communication) (10/01/21 09:13) Ns Iv 1000 Ml (Sodium Chloride 0.9%) (10/01/21 09:14) Ceftriaxone 1 Gm Pre-Mix (Rocephin 1 Gm (10/01/21 09:37) Vital Signs/I&O 10/01/21 07:28 Temp 36.1 Pulse 74 Resp 12 B/P (MAP) 100/49 (66) O2 Delivery Room Air Capillary Refill : Less Than 3 Seconds Blood Pressure Mean: 66 Point of Care Testing Fecal Occult: Positive Progress Note #1: Progress Note Order labs as well as Mills catheter, blood cultures, lactic acid, CT head, face, cervical spine. Chest x-ray, electrocardiogram with cardiac enzymes. Administer IV fluids for hydration. Since patient had a fall yesterday and has an abrasion on her forehead check to see if she has any intracranial hemorrhage or acute process that could be contributing to her altered mental status. Look for signs of a UTI or infection that may be contributing to her symptoms as well. Progress Note #2: Progress Note When placing the Mills catheter the nurses noticed that the patient had dark- colored stool and loose rectal tone. They did a Hemoccult of it and it was heme positive. Progress Note #3: Progress Note Lab called to say that hemoglobin was 4.2 and hematocrit of 14. Will continue with IV fluids and repeat CT to ensure that there is no intracranial hemorrhage. Awaiting chemistry still to see if her electrolytes or renal function are abnormal either. When discussed with the this is when he stated that she was taking a baby aspirin since the stroke. He also now mentions that she had thrown up some coffee-ground or dark looking emesis about 4 or 5 days ago. I advised him that she will need to be admitted and we will likely be able to bring her down to [facility] with Dr. Blackwell who is on-call for Dr. Pérez but I was waiting on a few more tests. Patient stated that he was agreea ble to that as he had excellent experience with Dr. Blackwell when she cared for his brother. Progress Note #4: Progress Note [address] Blackwell and she was agreeable to admission on the patient. Patient does have elevated troponin which could be a non-ST elevation SD secondary to her acute anemia and GI bleed. Patient was given Protonix 40 mg IV. She deferred administering uncrossed matched blood here as the patient was currently hemodynamically stable with IV fluid. Will work on transfusing when she gets to the ICU in [place]. [address] Gallardo for general surgery about consult on the patient. He recommended doing Protonix 40 mg twice daily in place of a Protonix drip. 0934 Lactic acid elevated over 7 and she has elevated WBC count of 21K, so will give Rocephin 1 gm IV for EMS to run while transporting to [place]. This would help cover for possible infection source while Urine is pending and cultures pending Diagnostic Imaging Diagonstic Imaging: CT Plain Films/CT/US/NM/MRI: facial bones, c-spine, head Comments [facility] [place], [place] NAME: CHICA SAHA [facility] REC#: [id number] PT STATUS: REG ER : 1935 PHYSICIAN: YE ESTRELLA MD ADMIT DATE: 10/01/21/ER FS Signed Date of Exam:10/01/21 CT HEAD/FACE/CERVICAL WO PROCEDURE: CT head, face, and cervical spine without contrast. TECHNIQUE: Multiple contiguous axial images were obtained through the head, neck, and facial bones without the use of intravenous contrast. Sagittal and coronal reformations through the cervical spine and facial bones were also performed. Auto Exposure Controls were utilized during the CT exam to meet ALARA standards for radiation dose reduction. INDICATION: Multiple falls. Head and neck pain. Abrasion to the forehead. COMPARISON: None. FINDINGS: CT head: Likely chronic areas of ischemia are seen involving the inferior right cerebellum and right frontal lobe. Additional chronic microvascular disease is scattered throughout the periventricular and subcortical white matter. No evidence of acute hemorrhage. The ventricles and cortical sulci are diffusely prominent. The basilar cisterns are clear. The calvarium is intact. CT face: Please note motion artifact somewhat limits evaluation of the mandible. No acute facial fractures are visualized. The mandible, zygomatic arches, and pterygoid plates are intact. The bilateral TMJ demonstrate normal articulation. No nasal bone fractures. The bony nasal septum is midline without fracture. The paranasal sinuses and mastoid air cells are well pneumatized. The globes and orbits are symmetric and unremarkable. No evidence of orbital rim fracture. CT cervical spine: No acute fracture or dislocation is seen in the cervical spine. No focal osseous lesions. There is straightening of the cervical spine. Grade 1 anterolisthesis of C3 on C4 is noted. Vertebral body heights are well-maintained. The craniocervical junction is well-maintained. Degenerative changes are seen in the cervical spine with disc height loss, disc osteophyte complexes, and uncovertebral arthropathy. No evidence of acute spinal canal stenosis. Soft tissues of the neck are unremarkable. The included lung apices are clear. IMPRESSION: 1. Likely chronic areas of ischemia involving the inferior right cerebellum and right frontal lobe. If indicated, further evaluation with MRI brain may be considered. 2. No acute fracture or dislocation in the cervical spine. 3. No acute facial fractures. Please note motion artifact somewhat limits evaluation of the mandible. 4. 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 5. No acute hemorrhage. 6. Straightening of the cervical spine with grade 1 anterolisthesis of C3 on C4. Dictated by: Dictated on workstation # [id number] Dict: 10/01/2138 Trans: 10/01/2149 [id number] Interpreted by: MERLENE WINSLOW DO Electronically signed by: MERLENE WINSLOW DO 10/01/2149 Reviewed: Reviewed by Me Diagonstic Imaging: Xray Plain Films/CT/US/NM/MRI: chest Comments [facility] [place], [place] NAME: CHICA SAHA [facility] REC#: [id number] PT STATUS: REG ER : 1935 PHYSICIAN: YE ESTRELLA MD ADMIT DATE: 10/01/21/ER FS Draft Date of Exam:10/01/21 CHEST 1 VIEW AP/PA ONLY INDICATION: Fall with chest pain, altered mental status. EXAMINATION: A frontal chest was obtained at 8:35 AM. FINDINGS: The heart is borderline enlarged. The mediastinal silhouette is unremarkable. There are some atherosclerotic calcifications at the aortic arch. There is no focal infiltrate, pneumothorax, or pleural fluid. IMPRESSION: Mild cardiomegaly with no acute process in the chest. Dictated on workstation # [id number] Dict: 10/01/21 0843 Trans: 10/01/21 0844 [id number] Interpreted by: ESTEVAN MILLAN MD Electronically signed by: Reviewed: Reviewed by Me Departure Communication (Admissions) Time/Spoke to Admitting Phy: 09:[address] Blackwell as she is on-call for the [facility] service. She accepted the patient for admission and would put her in the ICU. She deferred on any uncrossed matched blood here in [place] and will manage transfusion in [place]. She requested I check with Dr. Gallardo from surgery so that he was aware of the patient Time/Spoke to Consulting Phy: 09:[address] Gallardo and advised of the patient. He recommended Protonix 40 mg IV twice daily in place of Protonix drip. Impression Primary Impression: Acute GI bleeding Additional Impressions: Anemia due to GI blood loss Dehydration Non-ST elevated myocardial infarction Elevated lactic acid level Disposition: 30 STILL A PATIENT Condition: Stable Admissions Decision to Admit Reason: Admit from ER (General) Decision to Admit/Date: Oct 01, 2021 Time/Decision to Admit Time: 09:10 Departure-Patient Inst. Referrals: DAMASO PÉREZ MD (PCP) Primary Care Physician YE ESTRELLA MD Oct 01, 2021 08:23
--- NOTE | 2021-10-01 08:45 | Diagnostic Imaging Report ---
INDICATION: Fall with chest pain, altered mental status. EXAMINATION: A frontal chest was obtained at 8:35 AM. FINDINGS: The heart is borderline enlarged. The mediastinal silhouette is unremarkable. There are some atherosclerotic calcifications at the aortic arch. There is no focal infiltrate, pneumothorax, or pleural fluid. IMPRESSION: Mild cardiomegaly with no acute process in the chest. Dictated by: Dictated on workstation # [id number]
--- NOTE | 2021-10-01 08:47 | Diagnostic Imaging Report ---
PROCEDURE: CT head, face, and cervical spine without contrast. TECHNIQUE: Multiple contiguous axial images were obtained through the head, neck, and facial bones without the use of intravenous contrast. Sagittal and coronal reformations through the cervical spine and facial bones were also performed. Auto Exposure Controls were utilized during the CT exam to meet ALARA standards for radiation dose reduction. INDICATION: Multiple falls. Head and neck pain. Abrasion to the forehead. COMPARISON: None. FINDINGS: CT head: Likely chronic areas of ischemia are seen involving the inferior right cerebellum and right frontal lobe. Additional chronic microvascular disease is scattered throughout the periventricular and subcortical white matter. No evidence of acute hemorrhage. The ventricles and cortical sulci are diffusely prominent. The basilar cisterns are clear. The calvarium is intact. CT face: Please note motion artifact somewhat limits evaluation of the mandible. No acute facial fractures are visualized. The mandible, zygomatic arches, and pterygoid plates are intact. The bilateral TMJ demonstrate normal articulation. No nasal bone fractures. The bony nasal septum is midline without fracture. The paranasal sinuses and mastoid air cells are well pneumatized. The globes and orbits are symmetric and unremarkable. No evidence of orbital rim fracture. CT cervical spine: No acute fracture or dislocation is seen in the cervical spine. No focal osseous lesions. There is straightening of the cervical spine. Grade 1 anterolisthesis of C3 on C4 is noted. Vertebral body heights are well-maintained. The craniocervical junction is well-maintained. Degenerative changes are seen in the cervical spine with disc height loss, disc osteophyte complexes, and uncovertebral arthropathy. No evidence of acute spinal canal stenosis. Soft tissues of the neck are unremarkable. The included lung apices are clear. IMPRESSION: 1. Likely chronic areas of ischemia involving the inferior right cerebellum and right frontal lobe. If indicated, further evaluation with MRI brain may be considered. 2. No acute fracture or dislocation in the cervical spine. 3. No acute facial fractures. Please note motion artifact somewhat limits evaluation of the mandible. 4. 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 5. No acute hemorrhage. 6. Straightening of the cervical spine with grade 1 anterolisthesis of C3 on C4. Dictated by: Dictated on workstation # [id number]
[2021-10-01 08:56] LABS: BILIRUBIN,TOTAL 0.4 MG/DL (0.1-1.0); CALCIUM 9.1 MG/DL (8.5-10.1); CREATININE SERUM 1.82 MG/DL (0.60-1.30); MAGNESIUM 2.7 MG/DL (1.6-2.4); POTASSIUM 5.8 MMOL/L (3.6-5.0)
[2021-10-01 08:57] LABS: ALBUMIN 2.8 GM/DL (3.2-4.5)
[2021-10-01 08:58] LABS: TOTAL PROTEIN 5.9 GM/DL (6.4-8.2)
[2021-10-01 09:27] LABS: INR 1.1 (0.8-1.4); PROTHROMBIN TIME PATIENT 14.6 SEC (12.2-14.7)
[2021-10-01] MEDS ORDERED: cefTRIAXone 1 GM PRE-MIX 50 ML IV STA (09:37)
[2021-10-01] MEDS ORDERED: cefTRIAXone 1 GM PRE-MIX 50 ML IV ONE (09:38)
[2021-10-01 09:44] LABS: BACTERIA,URINE LARGE /HPF; SQUAMOUS EPITHELIAL CELL,UR 0-2 /HPF
[2021-10-01 09:56] LABS: BAND NEUTROPHILS 12 %; BASOPHILS % (MANUAL) 0 %; ELLIPT/OVALOCYTES SLIGHT; EOSINOPHILS % (MANUAL) 0 %; HYPOCHROMASIA 1+; LYMPHOCYTES % (MANUAL) 14 %; MICROCYTOSIS 1+; MONOCYTES % (MANUAL) 2 %; NEUTROPHILS % (MANUAL) 72 %; NUCLEATED RED BLOOD CELLS 2; PLATELET ESTIMATE NORMAL; POIKILOCYTOSIS 1+; POLYCHROMASIA SLIGHT
[2021-10-01] MEDS ORDERED: NS IV 500 ML 500 ML IV SCH (10:15)
[2021-10-01] MEDS ORDERED: diphenhydrAMINE 50 MG/ML INJ (BENADRYL) IVP PRN (10:15)
[2021-10-01] MEDS ORDERED: ONDANSETRON 4 MG/2 ML (SDV) Z0FRAN IV PRN (10:15)
[2021-10-01] MEDS ORDERED: RT-ALBUTEROL SULF 2.5 MG/3 ML PRE-MIX VIAL INH PRN (11:00)
--- NOTE | 2021-10-01 11:26 | History & Physical-Hospitalist ---
History of Present Illness HPI/Chief Complaint CC: GI Bleed with Hypotension HPI: This is a pt of [facility]. Pt presented from [facility] with severe GI bleed with coffee ground emesis and lower GI bleed. Her hemoglobin was 4.2. She was hypotensive, improved with IV fluids. She remains a DNR. She lives at home with her who has taken care of her since the stroke. Upon assessment she appeared to be very frail, very declined, and very altered. I did have a long conversation with and daughter and multiple questions answered. We will try to provide blood transfusion and support, but she could very well pass away. PICC line will be placed. Dr. Gallardo and Dr. Newell both consulted for GI bleed and elevated troponin respectively. Source: family, RN/ Exam Limitations: clinical condition Date Seen 10/01/21 Time Seen by a Provider: 11:30 Attending Physician Bernabe Pérez MD PCP Admitting Physician: Keila Blackwell DO Attending Physician: Keila Blackwell DO Referring Physician Date of Admission Oct 01, 2021 at 10:25 Home Medications & Allergies Home Medications Reviewed patient Home Medication Reconciliation performed by pharmacy medication reconciliations residential service technician and/or nursing. Patients Allergies have been reviewed. Allergies Allergies Coded Allergies amoxicillin (Verified Allergy, Unknown, 10/24/16) citalopram (Verified Allergy, Unknown, 10/24/16) diltiazem (Verified Allergy, Unknown, 10/24/16) gluten (Verified Allergy, Unknown, RASH, 10/24/16) hydrochlorothiazide (Verified Allergy, Unknown, 10/24/16) nitrofurantoin (Verified Allergy, Unknown, 10/24/16) quinapril (Verified Allergy, Unknown, 10/24/16) sertraline (Verified Allergy, Unknown, 10/24/16) triamterene (Verified Allergy, Unknown, 10/24/16) Past Paxbtaq-Fvbdnk-Rekwek Hx Patient Social History Marrital Status: Employed/Student: retired Tobacco Use?: No Smoking Status: Never a Smoker Smokeless Tobacco Frequency: Never a User Use of E-Cig and/or Vaping dev: No Use of E-Cig and/or Vaping Jaswant: Never a User Substance use?: No Alcohol Use?: No Pt feels they are or have been: No Immunizations Up To Date Date of Pneumonia Vaccine: Jan 19, 2016 Current Status Advance Directives: Yes Advance Directive Location: IN ROOM Communicates: Verbally Primary Language: [place] Islander Preferred Spoken Language: [place] Islander Is interpretation needed?: No Past Medical History High Cholesterol, Hypertension Stroke Ulcer Scoliosis, Chronic Back Pain Review of Systems ROS-Unable to Obtain: AMS Constitutional: see HPI Physical Exam Physical Exam Vital Signs Vital Signs - First Documented 10/01/21 10/01/21 07:28 09:42 Temp 36.1 Pulse 74 Resp 12 B/P (MAP) 100/49 (66) Pulse Ox 98 O2 Delivery Room Air Capillary Refill : Less Than 3 Seconds Height, Weight, BMI Height: 5'2.00" Weight: 121lbs. 0.0oz. [id number]; 16.00 BMI Method: General Appearance: Chronically ill, Thin, Other (pale, lethargic, confused, non-verbal, grunting softly) Neck: Full Range of Motion Respiratory: Lungs Clear, Normal Breath Sounds Cardiovascular: Tachycardia Neurologic/Psychiatric: Disoriented, Other (lathargic) Skin: Cool, Mottled Results Results/Procedures Labs Laboratory Tests 10/01/21 07:39 10/01/21 13:45 10/01/21 18:54 10/02/21 04:15 Patient resulted labs reviewed. Assessment/Plan Admission Diagnosis Assessment: Hypotension GIB Severe anemia Prior CVA Chronic debility AMBIKA Elevated troponin h/o HTN HLP Plan: ICU Transfuse Dr Gallardo consult Dr Newell consult DNR Very grave prognosis Admission Status: Inpatient Order (span 2 midnights) Reason for Inpatient Admission: gib Diagnosis/Problems Diagnosis/Problems (1) Acute GI bleeding Status: Acute (2) Dehydration Status: Acute (3) Non-ST elevated myocardial infarction Status: Acute (4) Anemia due to GI blood loss Status: Acute (5) Elevated lactic acid level Status: Acute (6) Cerebrovascular accident (CVA) involving right cerebral hemisphere Clinical Quality Measures DVT/VTE Risk/Contraindication: Contraindications-Pharm: Other *list below* Other: KEILA Han DO Oct 01, 2021 11:26
--- NOTE | 2021-10-01 11:28 | Consultation-Cardiology ---
[facility]-Cardiology Cardiology Consultation: Date of Consultation 10/01/21 Time Seen by a Provider: 11:25 Date of Admission 10-01-21 Attending Physician Bernabe Pérez MD Admitting Physician Admitting Physician: Keila Blackwell DO Attending Physician: Keila Blackwell DO Consulting Physician Serafin Newell MD Provider requesting consult: Dr. Blackwell HPI: Chief Complaint: Elevated troponin Ms. Box is an 86 yr old female admitted to ICU 12 from the ED in [facility] with anemia and AMS. She is unresponsive. She thrashes around in the bed with any tactile stimulation. Her spouse is at the bedside. He is not a good historian. He reports yesterday she tripped on the corner of a picture frame at home that was on the floor. He reports she hit her head. He was able to get her up, but she would not eat or drink anything yesterday afterwards. He reports she has not been eating or drinking much over the last several days. He reports prior to yesterday's events he had walked her outside and then she would just "crumple" and he would have to hold her up. He is unsure of how long she would be like that. She would come to so he could help her back to the house. He reports she had been able to take her medications prior to yesterdays event. He states this morning he was unable to get her to get up out of bed. He reports she was thrashing around during the night. He did get her in a w/c, hitting her head on the right side and managed to get her into his private vehi марина to take her to the ED. Review of Systems-Cardiology Review of Systems Other comments ROS to the extent it could be obtained from family is as per the [facility] JLS-Dbayjc-Lkzvsd Hx Patient Social History Smoking Status: Never a Smoker Have you traveled recently?: No Alcohol Use?: No Pt feels they are or have been: No Immunizations Up To Date Date of Pneumonia Vaccine: Jan 19, 2016 Past Medical History PMH As described under Assessment. Family Medical History Family Medical History: Unable to answer Allergies and Home Medications Allergies Coded Allergies: amoxicillin (Verified Allergy, Unknown, 10/24/16) citalopram (Verified Allergy, Unknown, 10/24/16) diltiazem (Verified Allergy, Unknown, 10/24/16) gluten (Verified Allergy, Unknown, RASH, 10/24/16) hydrochlorothiazide (Verified Allergy, Unknown, 10/24/16) nitrofurantoin (Verified Allergy, Unknown, 10/24/16) quinapril (Verified Allergy, Unknown, 10/24/16) sertraline (Verified Allergy, Unknown, 10/24/16) triamterene (Verified Allergy, Unknown, 10/24/16) Patient Home Medication List Amlodipine Besylate (Amlodipine Besylate) 5 Mg Tablet, 5 MG PO DAILY, (Reported) Entered as Reported by: CORTNEY XIONG on 10/27/16 105 Last Action: Reviewed Aspirin (Aspirin EC) 81 Mg Tablet.dr, 81 MG PO DAILY, (Reported) Entered as Reported by: FRANK BALLARD on 10/01/211534 Last Action: Reviewed Atorvastatin Calcium (Atorvastatin Calcium) 40 Mg Tablet, 40 MG PO HS, (Reported) Entered as Reported by: CORTNEY XIONG on 10/27/16 105 Last Action: Reviewed C,E,Zinc,Copper 11/Ojnlb4t/Lut (Ocuvite Adult 50 Plus Softgel) 250 Mg (90 Mg-160 Mg)-5 Mg-1 Mg Capsule, 1 EACH PO HS, (Reported) Entered as Reported by: FRANK BALLARD on 10/01/211534 Last Action: Reviewed Celecoxib (Celecoxib) 200 Mg Capsule, 200 MG PO DAILY, (Reported) Entered as Reported by: FRANK BALLARD on 10/01/211332 Last Action: Reviewed Donepezil HCl (Donepezil HCl) 10 Mg Tablet, 10 MG PO HS, (Reported) Entered as Reported by: FRANK BALLARD on 10/01/211534 Last Action: Reviewed Lidocaine (Lidocaine 5% Patch) 5 % Adh..patch, 1 PATCH TD DAILY PRN for PAIN- BREAKTHROUGH, (Reported) Entered as Reported by: FRANK BALLARD on 10/01/211332 Last Action: Reviewed Multivitamin (Multivitamin) 1 Each Tablet, 1 EACH PO HS, (Reported) Entered as Reported by: FRANK BALLARD on 10/01/211534 Last Action: Reviewed [place]-3 Acid Ethyl Esters (Lovaza) 1 Gm Capsule, 1 GM PO BID, (Reported) Entered as Reported by: CHINYERE GORDON on 10/24/16 1900 Last Action: Reviewed Omeprazole (Omeprazole) 20 Mg Capsule.dr, 20 MG PO DAILY, (Reported) Entered as Reported by: FRANK BALLARD on 10/01/211332 Last Action: Reviewed Sucralfate (Sucralfate) 1 Gram/10 Ml Oral.susp, 10 ML PO ACHS, (Reported) Entered as Reported by: FRANK BALLARD on 10/01/211332 Last Action: Reviewed Discontinued Medications Aspirin (Aspirin) 81 Mg Tab.chew, 81 MG PO DAILY, (Reported) Discontinued Reason: No Longer Taking Entered as Reported by: CORTNEY XIONG on 10/27/161052 Last Action: Discontinued Cyclosporine (Restasis) 1 Each Droperette, 1 DROP OU BID Discontinued Reason: No Longer Taking Prescribed by: TIFFANY DURAN on 10/27/161924 Last Action: Discontinued Folic Acid/Vitamin B Comp W-C (Nephro-Alex Tablet) 0.8 Mg Tablet, 0.8 MG PO HS, (Reported) Discontinued Reason: No Longer Taking Entered as Reported by: CHINYERE GORDON on 10/24/161425 Last Action: Discontinued Losartan Potassium (Losartan Potassium) 100 Mg Tablet, 100 MG PO DAILY Discontinued Reason: No Longer Taking Prescribed by: TIFFANY DURAN on 10/27/161924 Last Action: Discontinued Metoprolol Succinate (Metoprolol Succinate) 25 Mg Tab.er.24h, 75 MG PO DAILY, (Reported) Discontinued Reason: No Longer Taking Entered as Reported by: CORTNEY XIONG on 10/27/161052 Last Action: Discontinued Nitroglycerin (Nitroglycerin) 0.4 Mg Tab.subl, 0.4 MG SL UD PRN for CHEST PAIN Discontinued Reason: No Longer Taking Prescribed by: TIFFANY DURAN on 10/27/161924 Last Action: Discontinued Omeprazole Magnesium (Prilosec Otc) 20 Mg Tablet.dr, 20 MG PO DAILY, (Reported) Discontinued Reason: No Longer Taking Entered as Reported by: CHINYERE GORDON on 10/24/161425 Last Action: Discontinued Potassium Chloride (K-Tab ER) 10 Meq Tablet.er, 10 MEQ PO BID, (Reported) Discontinued Reason: No Longer Taking Entered as Reported by: CHINYERE GORDON on 10/24/161425 Last Action: Discontinued Physical Exam-Cardiology Physical Exam Vital Signs/I&O 10/01/21 10/01/21 10/01/21 10/01/21 07:28 09:42 10:30 10:40 Temp 36.1 Pulse 74 68 91 Resp 12 17 B/P (MAP) 100/49 (66) 101/61 Pulse Ox 98 O2 Delivery Room Air Room Air Room Air 10/01/21 10/01/21 10/01/21 10/01/21 10:54 11:15 12:00 12:00 Temp 36.1 36.2 Pulse 74 81 64 Resp 17 16 B/P (MAP) 110/39 111/52 Pulse Ox 95 O2 Delivery Room Air Room Air 10/01/21 10/01/21 10/01/21 10/01/21 12:09 12:20 12:31 13:00 Temp 36.0 35.9 Pulse 80 83 83 96 Resp 22 31 B/P (MAP) 111/52 106/53 145/64 Pulse Ox 100 100 100 O2 Delivery Room Air Room Air Room Air 10/01/21 10/01/21 10/01/21 10/01/21 13:34 14:00 14:18 14:32 Temp 36.4 36.5 36.2 Pulse 89 85 77 76 Resp 21 16 15 16 B/P (MAP) 141/84 122/66 125/35 128/48 Pulse Ox 100 90 100 100 O2 Delivery Room Air Room Air Room Air Room Air 10/01/21 10/01/21 15:00 15:47 Temp 36.9 Pulse 76 Resp 17 B/P (MAP) 109/48 Pulse Ox 100 O2 Delivery Room Air Capillary Refill : Less Than 3 Seconds Constitutional: other (unresponsive; moves right arm and thrashes in the bed when touched; thin, frail) Neck: No carotid bruit; carotid pulses are 2 + bilaterally Respiratory: No accessory muscle use, No respiratory distress; chest expansion is symmetric, chest is bilaterally symmetric, other (fair air entry) Cardiovascular: regular rate-rhythm; No JVD; S1 and S2, systolic murmur Gastrointestinal: soft Extremities: no lower extremity edema bilateral Neurologic/Psychiatric: other (see above) Skin: pallor, other (bruising to right shoulder, bruising and abrasions to LE bilat, abrasions to the left side of the forehead) Data Review Labs Laboratory Tests 10/01/21 07:39: White Blood Count 21.5H, Red Blood Count 1.41L, Hemoglobin 4.2*L, Hematocrit 14*L, Mean Corpuscular Volume 100H, Mean Corpuscular Hemoglobin 30, Mean Corpuscular Hemoglobin Concent 30L, Red Cell Distribution Width 15.7H, Platelet Count 359, Mean Platelet Volume 10.1, Immature Granulocyte % (Auto) 1, Neutrophils (%) (Auto) 83H, Lymphocytes (%) (Auto) 12, Monocytes (%) (Auto) 3, Eosinophils (%) (Auto) 0, Basophils (%) (Auto) 0, Neutrophils # (Auto) 17.9H, Lymphocytes # (Auto) 2.5, Monocytes # (Auto) 0.7, Eosinophils # (Auto) 0.0, Basophils # (Auto) 0.0, Immature Granulocyte # (Auto) 0.3H, Neutrophils % (Manual) 72, Lymphocytes % (Manual) 14, Monocytes % (Manual) 2, Eosinophils % (Manual) 0, Basophils % (Manual) 0, Band Neutrophils 12, Nucleated Red Blood Cells 2, Platelet Estimate NORMAL, Polychromasia SLIGHT, Hypochromasia 1+, Poikilocytosis 1+, Microcytosis 1+, Macrocytosis 1+, Elliptocytes SLIGHT, Prothrombin Time 14.6, INR Comment 1.1, Activated Partial Thromboplast Time 22L, Sodium Level 141, Potassium Level 5.8H, Chloride Level 106, Carbon Dioxide Level 17L, Anion Gap 18H, Blood Urea Nitrogen 56H, Creatinine 1.82H, Estimat Glomerular Filtration Rate 27, BUN/Creatinine Ratio 31, Glucose Level 147H, Calcium Level 9.1, Corrected Calcium 10.1, Magnesium Level 2.7H, Total Bilirubin 0.4, Aspartate Amino Transf (AST/SGOT) 46H, Alanine Aminotransferase (ALT/SGPT) 36, Alkaline Phosphatase 72, Myoglobin 864.6H, Troponin I 0.62*H, C-Reactive Protein High Sensitivity 9.06H, Total Protein 5.9L, Albumin 2.8L 10/01/21 07:47: Urine Color YELLOW, Urine Clarity SL CLOUDY, Urine pH 6.0, Urine Specific [place] 1.020, Urine Protein NEGATIVE, Urine Glucose (UA) NEGATIVE, Urine Ketones NEGATIVE, Urine Nitrite NEGATIVE, Urine Bilirubin NEGATIVE, Urine Urobilinogen 0.2, Urine Leukocyte Esterase NEGATIVE, Urine RBC (Auto) NEGATIVE, Urine RBC 2-5H, Urine WBC 5-10H, Urine Squamous Epithelial Cells 0-2, Urine Crystals NONE, Urine Bacteria LARGEH, Urine Casts NONE, Urine Mucus SMALLH, Urine Culture Indicated YES 10/01/21 08:10: Influenza Type A Antigen NEGATIVE, Influenza Type B Antigen NEGATIVE 10/01/21 08:12: SARS-CoV-2 RNA (RT-PCR) Not Detected 10/01/21 09:00: Lactic Acid Level 7.95*H 10/01/21 11:15: Lactic Acid Level 9.09*H, B-Type Natriuretic Peptide 1298.4H 10/01/21 13:45: Lactic Acid Level 7.02*H, Hemoglobin 6.8#*L, Hematocrit 21L Radiology [facility] REC[facility] [id number] PT STATUS: REG ER : 1935 PHYSICIAN: YE ESTRELLA MD ADMIT DATE: 10/01/21/ER FS Signed Date of Exam:10/01/21 CHEST 1 VIEW AP/PA ONLY INDICATION: Fall with chest pain, altered mental status. EXAMINATION: A frontal chest was obtained at 8:35 AM. FINDINGS: The heart is borderline enlarged. The mediastinal silhouette is unremarkable. There are some atherosclerotic calcifications at the aortic arch. There is no focal infiltrate, pneumothorax, or pleural fluid. IMPRESSION: Mild cardiomegaly with no acute process in the chest. Dictated by: Dictated on workstation # [id number] Dict: 10/01/21 0843 Trans: 10/01/21 0910 [id number] Interpreted by: ESTEVAN MILLAN MD Electronically signed by: ESTEVAN MILLAN MD 10/01/21 [facility] [id number] PT STATUS: REG ER : 1935 PHYSICIAN: YE ESTRELLA MD ADMIT DATE: 10/01/21/ER FS Signed Date of Exam:10/01/21 CT HEAD/FACE/CERVICAL WO PROCEDURE: CT head, face, and cervical spine without contrast. TECHNIQUE: Multiple contiguous axial images were obtained through the head, neck, and facial bones without the use of intravenous contrast. Sagittal and coronal reformations through the cervical spine and facial bones were also performed. Auto Exposure Controls were utilized during the CT exam to meet ALARA standards for radiation dose reduction. INDICATION: Multiple falls. Head and neck pain. Abrasion to the forehead. COMPARISON: None. FINDINGS: CT head: Likely chronic areas of ischemia are seen involving the inferior right cerebellum and right frontal lobe. Additional chronic microvascular disease is scattered throughout the periventricular and subcortical white matter. No evidence of acute hemorrhage. The ventricles and cortical sulci are diffusely prominent. The basilar cisterns are clear. The calvarium is intact. CT face: Please note motion artifact somewhat limits evaluation of the mandible. No acute facial fractures are visualized. The mandible, zygomatic arches, and pterygoid plates are intact. The bilateral TMJ demonstrate normal articulation. No nasal bone fractures. The bony nasal septum is midline without fracture. The paranasal sinuses and mastoid air cells are well pneumatized. The globes and orbits are symmetric and unremarkable. No evidence of orbital rim fracture. CT cervical spine: No acute fracture or dislocation is seen in the cervical spine. No focal osseous lesions. There is straightening of the cervical spine. Grade 1 anterolisthesis of C3 on C4 is noted. Vertebral body heights are well-maintained. The craniocervical junction is well-maintained. Degenerative changes are seen in the cervical spine with disc height loss, disc osteophyte complexes, and uncovertebral arthropathy. No evidence of acute spinal canal stenosis. Soft tissues of the neck are unremarkable. The included lung apices are clear. IMPRESSION: 1. Likely chronic areas of ischemia involving the inferior right cerebellum and right frontal lobe. If indicated, further evaluation with MRI brain may be considered. 2. No acute fracture or dislocation in the cervical spine. 3. No acute facial fractures. Please note motion artifact somewhat limits evaluation of the mandible. 4. 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 5. No acute hemorrhage. 6. Straightening of the cervical spine with grade 1 anterolisthesis of C3 on C4. Dictated by: Dictated on workstation # [id number] Dict: 10/01/21 0838 Trans: 10/01/21 0849 [id number] Interpreted by: MERLENE WINSLOW DO Electronically signed by: MERLENE WINSLOW DO 10/01/21 0849 A/P-Cardiology Assessment/Admission Diagnosis Elevated troponin - likely Type 2 AL secondary to hypotension Anemia - H/H 4.06/03 - management per medical services - receiving transfusions UTI with sepsis - management per medical services AMS Renal insufficiency - likely d/t vol depletion Hyperkalemia - likely d/t vol depletion 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[facility] records - ischemic R CVA for which she was transferred to [facility] and then back to [facility] in 2017 Spouse reports previously saw diamond sizer and sorter at [facility] - does not recall the details as to why or when Discussion and Recomendations Elevated troponin - likely Type 2 AL secondary to sepsis and hypotension - management per medical services Sepsis - management per medical services - receiving IVF Renal insufficiency - likely d/t vol depletion Hyperkalemia - likely secondary to vol depletion Gross anemia - undetermined etiology - management per medical services AMS - management per medical services Monitor lab - replace electrolytes as indicated Poor prognosis DNR status Further recs will be based on her hospital course We would like to thank Dr. Blackwell for this consult Clinical Quality Measures DVT/VTE Risk/Contraindication: Contraindications-Pharm: Other *list below* Other: DAGOBERTO Akhtar Oct 01, 2021 11:28
--- NOTE | 2021-10-01 12:12 | Tele-ICU Consult ---
History of Present Illness History of Present Illness Date Seen by Provider: Oct 01, 2021 Time Seen by Provider: 12:04 Date of Admission (Tele-ICU Physician , consultation) Available chart/ vitals / labs / Images reviewed H&P is from ER notes Patient's information available about PMH, Shx, Fhx allergy reviewed in EMR. ROS as per chart and RN report Now in ICU, hemodynamically stable Video assessment done using teleICU camera, rest of exam as per RN Discussed with RN. Consultants: Hospital course: (10/01) 86 y/o female admitted in ED with AMS/Hypotension Acute GI bleed/ Ane kalin/dehydration/NSTEMI/Lactic acidosis. HGB 4.2 A/P Shock ( hemorrhagic . +/- septic - received 2 L crystalloids in ER - lactate is [id number] , but holding BP without pressors - transfusion 2 pRBC pending - pressors prn - lactate, BMP , HB to follow afrter 1st unit Elevated lactate - most likely due to anemia and hypoperfusion - empiric abx given, cx [id number] , fluid given , sepsis focus exam done Suspected GIB -on ASA 81- - vomiting 4 days prior vomited dark coffee ground emesis at home - PPI IV BID - not on AC ( on ASA 81 - follow Hb - Sx consulted ABLA ( Nb 4.2 with baseline 10 ) = transfusion 2 units - follow AMBIKA with elev K - with hypoperfusion with shock - volume resuscitation , follow Cr , K and UO Elevated troponin - non-ST elevation TN with demand Leukocytosis - cxr - no PNA - NEG flu , covid - UA unimpressive - empiric abx given in ER , cx pending Encephalopaty - with shock s/p fall 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 Discussed with RN to reach out if any questions or concerns A total of 35 minutes of critical care time was devoted to this patient today, required to treat and/or prevent further deterioration of critical care condition ( as above ) . Allergies and Home Medications Allergies Coded Allergies: amoxicillin (Verified Allergy, Unknown, 10/24/16) citalopram (Verified Allergy, Unknown, 10/24/16) diltiazem (Verified Allergy, Unknown, 10/24/16) gluten (Verified Allergy, Unknown, RASH, 10/24/16) hydrochlorothiazide (Verified Allergy, Unknown, 10/24/16) nitrofurantoin (Verified Allergy, Unknown, 10/24/16) quinapril (Verified Allergy, Unknown, 10/24/16) sertraline (Verified Allergy, Unknown, 10/24/16) triamterene (Verified Allergy, Unknown, 10/24/16) Home Medications Amlodipine Besylate 5 Mg Tablet, 5 MG PO DAILY, (Reported) Aspirin 81 Mg Tab.chew, 81 MG PO DAILY, (Reported) Atorvastatin Calcium 40 Mg Tablet, 40 MG PO HS, (Reported) Cyclosporine 1 Each Droperette, 1 DROP OU BID Prescribed by: TIFFANY DURAN on 10/27/161924 Folic Acid/Vitamin B Comp W-C 0.8 Mg Tablet, 0.8 MG PO HS, (Reported) Losartan Potassium 100 Mg Tablet, 100 MG PO DAILY Prescribed by: TIFFANY DURAN on 10/27/161924 Metoprolol Succinate 25 Mg Tab.er.24h, 75 MG PO DAILY, (Reported) TAKES 3 (25 MG) TABLETS Nitroglycerin 0.4 Mg Tab.subl, 0.4 MG SL UD PRN for CHEST PAIN DISSLOVE 1 TAB UNDER TONGUE EVERY 5 MINUTES NEEDED FOR CHEST PAIN. MAY REPEAT FOR A TOTAL OF 3 DOSES. Prescribed by: TIFFANY DURAN on 10/27/161924 [place]-3 Acid Ethyl Esters 1 Gm Capsule, 2 GM PO BID, (Reported) TAKES 2 (1 GM) CAPSULES Omeprazole Magnesium 20 Mg Tablet.dr, 20 MG PO DAILY, (Reported) Potassium Chloride 10 Meq Tablet.er, 10 MEQ PO BID, (Reported) Past Medical/Social/Family Hx Patient Social History Tobacco Use?: No Smoking Status: Never a Smoker Smokeless Tobacco Frequency: Never a User Use of E-Cig and/or Vaping dev: No E-Cig and/or Vaping Freq: Never a User Substance use?: No Alcohol Use?: No Pt stated abuse/neglect: No Immunizations Up To Date Date of Pneumonia Vaccine: Jan 19, 2016 Current Status Advance Directives: No Advance Directive Location: IN ROOM Communicates: Verbally Primary Language: [place] Preferred Spoken Language: [place] Is interpretation needed?: No Review of Systems Constitutional: see HPI Focused Exam Sepsis Stage: Severe Sepsis Possible Source: Unknown Lactate Level 10/01/21 09:00: Lactic Acid Level 7.95*H 10/01/21 09:49: Height, Weight, BMI Height: 5'2.00" Weight: 121lbs. 0.0oz. 54.554825an; 16.61 BMI Method: Respiratory: Decreased Breath Sounds Cardiovascular: Other Capillary Refill: Less Than 3 Seconds Peripheral Pulses: 2+ Carotid (R) Skin: cool Lactic Acid Level Laboratory Tests Test 10/01/21 09:00 10/01/21 09:49 Lactic Acid Level 7.95 MMOL/L (0.50-2.00) *H Within 3hrs of presentation: Admin fluids, Admin ABX, Focus exam, Lactate level Exam Exam Patient acknowledged, consented, and participated in this virtual visit which was conducted using real time audio/video Vital Signs Date Time Temp Pulse Resp B/P (MAP) Pulse Ox O2 Delivery O2 Flow Rate FiO2 10/01/21 11:15 81 17 110/39 Room Air 10/01/21 10:54 36.1 74 10/01/21 10:40 91 10/01/21 10:30 Room Air 10/01/21 09:42 68 17 101/61 98 Room Air 10/01/21 07:28 36.1 74 12 100/49 (66) Room Air Height & Weight Height: 5'2.00" Weight: 121lbs. 0.0oz. 54.398195dx; 16.61 BMI Method: General Appearance: Chronically ill, Cachetic HEENT: PERRL/EOMI; No Moist Mucous Membranes (dry mucous membranes) Neck: Non Tender, Supple Respiratory: Chest Non Tender, Lungs Clear, Decreased Breath Sounds Cardiovascular: Regular Rate, Rhythm, Normal Peripheral Pulses Capillary Refill: Less Than 3 Seconds Extremity: Normal Range of Motion, No Pedal Edema, Slow Capillary Refill Neurologic/Psychiatric: Alert (eyes open but not answering questions or following commands) Skin: Cool, Pallor Results Lab Laboratory Tests 10/01/21 07:39 Assessment/Plan Assessment/Plan 1 LELE KINNEY MD Oct 01, 2021 12:12
[2021-10-01] MEDS: NS IV 1000 ML 1,000 ML IV SCH ×2 (12:20→19:55)
[2021-10-01] MEDS ORDERED: CELE-63 PO (13:33)
[2021-10-01] MEDS ORDERED: OMEP20CA18 PO (13:33)
[2021-10-01] MEDS ORDERED: LIDO700A45 TD (13:33)
[2021-10-01] MEDS ORDERED: SUCR1ORA15 PO (13:33)
[2021-10-01 13:58] LABS: HEMOGLOBIN 6.8 g/dL (11.5-16.0)
--- NOTE | 2021-10-01 15:34 | Consultation-Cardiology ---
HPI-Cardiology Cardiology Consultation: Date of Consultation 10/01/21 Time Seen by a Provider: 15:10 Date of Admission Attending Physician Bernabe Pérez MD Admitting Physician Admitting Physician: Keila Blackwell DO Attending Physician: Keila Blackwell DO Consulting Physician OLEG SOW MD, MA, FACP, FACC, [facility], CCDS Physician requesting Card consult: Dr Blackwell HPI: Chief Complaint: Reson of card consult: Elevated troponin Ms. Box is an 86 yr old female admitted to ICU 12 from the ED in [facility] with anemia and AMS. She is unresponsive. She thrashes around in the bed with any tactile stimulation. Her spouse is at the bedside. He is not a good historian. He reports yesterday she tripped on the corner of a picture frame at home that was on the floor. He reports she hit her head. He was able to get her up, but she would not eat or drink anything yesterday afterwards. He reports she has not been eating or drinking much over the last several days. He reports prior to yesterday's events he had walked her outside and then she would just "crumple" and he would have to hold her up. He is unsure of how long she would be like that. She would come to so he could help her back to the house. He reports she had been able to take her medications prior to yesterdays event. He states this morning he was unable to get her to get up out of bed. He reports she was thrashing around during the night. He did get her in a w/c, hitting her head on the right side and managed to get her into his private vehicle to take her to the ED. Review of Systems-Cardiology Review of Systems Constitutional: other (unresponsive; family state she was quite active until about 3 weeks ago and had not been reporting any symptoms) UOX-Ejnyqe-Tugnmt Hx Patient Social History Smoking Status: Never a Smoker Have you traveled recently?: No Alcohol Use?: No Pt feels they are or have been: No Immunizations Up To Date Date of Pneumonia Vaccine: Jan 19, 2016 Past Medical History PMH As described under Assessment. Family Medical History Family Medical History: Unable to answer Allergies and Home Medications Allergies Coded Allergies: amoxicillin (Verified Allergy, Unknown, 10/24/16) citalopram (Verified Allergy, Unknown, 10/24/16) diltiazem (Verified Allergy, Unknown, 10/24/16) gluten (Verified Allergy, Unknown, RASH, 10/24/16) hydrochlorothiazide (Verified Allergy, Unknown, 10/24/16) nitrofurantoin (Verified Allergy, Unknown, 10/24/16) quinapril (Verified Allergy, Unknown, 10/24/16) sertraline (Verified Allergy, Unknown, 10/24/16) triamterene (Verified Allergy, Unknown, 10/24/16) Patient Home Medication List Home Medication List Reviewed: Yes Amlodipine Besylate (Amlodipine Besylate) 5 Mg Tablet, 5 MG PO DAILY, (Reported) Entered as Reported by: CORTNEY XIONG on 10/27/161052 Last Action: Last Taken Edited Atorvastatin Calcium (Atorvastatin Calcium) 40 Mg Tablet, 40 MG PO HS, (Reported) Entered as Reported by: CORTNEY XIONG on 10/27/161052 Last Action: Last Taken Edited Celecoxib (Celecoxib) 200 Mg Capsule, 200 MG PO DAILY, (Reported) Entered as Reported by: FRANK BALLARD on 10/01/211332 Last Action: New Order Lidocaine (Lidocaine 5% Patch) 5 % Adh..patch, 1 PATCH TD DAILY PRN for PAIN- BREAKTHROUGH, (Reported) Entered as Reported by: FRANK BALLARD on 10/01/211332 Last Action: New Order [place]-3 Acid Ethyl Esters (Lovaza) 1 Gm Capsule, 1 GM PO BID, (Reported) Entered as Reported by: CHINYERE GORDON on 10/24/16 1900 Last Action: Last Taken Edited Omeprazole (Omeprazole) 20 Mg Capsule.dr, 20 MG PO DAILY, (Reported) Entered as Reported by: FRANK BALLARD on 10/01/211332 Last Action: New Order Sucralfate (Sucralfate) 1 Gram/10 Ml Oral.susp, 10 ML PO ACHS, (Reported) Entered as Reported by: FRANK BALLARD on 10/01/211332 Last Action: New Order Discontinued Medications Aspirin (Aspirin) 81 Mg Tab.chew, 81 MG PO DAILY, (Reported) Discontinued Reason: No Longer Taking Entered as Reported by: CORTNEY XIONG on 10/27/16 105 Last Action: Discontinued Cyclosporine (Restasis) 1 Each Droperette, 1 DROP OU BID Discontinued Reason: No Longer Taking Prescribed by: TIFFANY DURAN on 10/27/161924 Last Action: Discontinued Folic Acid/Vitamin B Comp W-C (Nephro-Alex Tablet) 0.8 Mg Tablet, 0.8 MG PO HS, (Reported) Discontinued Reason: No Longer Taking Entered as Reported by: CHINYERE GORDON on 10/24/161425 Last Action: Discontinued Losartan Potassium (Losartan Potassium) 100 Mg Tablet, 100 MG PO DAILY Discontinued Reason: No Longer Taking Prescribed by: TIFFANY DURAN on 10/27/161924 Last Action: Discontinued Metoprolol Succinate (Metoprolol Succinate) 25 Mg Tab.er.24h, 75 MG PO DAILY, (Reported) Discontinued Reason: No Longer Taking Entered as Reported by: CORTNEY XIONG on 10/27/16 105 Last Action: Discontinued Nitroglycerin (Nitroglycerin) 0.4 Mg Tab.subl, 0.4 MG SL UD PRN for CHEST PAIN Discontinued Reason: No Longer Taking Prescribed by: TIFFANY DURAN on 10/27/161924 Last Action: Discontinued Omeprazole Magnesium (Prilosec Otc) 20 Mg Tablet.dr, 20 MG PO DAILY, (Reported) Discontinued Reason: No Longer Taking Entered as Reported by: CHINYERE GORDON on 10/24/161425 Last Action: Discontinued Potassium Chloride (K-Tab ER) 10 Meq Tablet.er, 10 MEQ PO BID, (Reported) Discontinued Reason: No Longer Taking Entered as Reported by: CHINYERE GORDON on 10/24/161425 Last Action: Discontinued Physical Exam-Cardiology Physical Exam Vital Signs/I&O 10/01/21 10/01/21 10/01/21 10/01/21 07:28 09:42 10:30 10:40 Temp 36.1 Pulse 74 68 91 Resp 12 17 B/P (MAP) 100/49 (66) 101/61 Pulse Ox 98 O2 Delivery Room Air Room Air Room Air 10/01/21 10/01/21 10/01/21 10/01/21 10:54 11:15 12:00 12:00 Temp 36.1 36.2 Pulse 74 81 64 Resp 17 16 B/P (MAP) 110/39 111/52 Pulse Ox 95 O2 Delivery Room Air Room Air 10/01/21 10/01/21 10/01/21 10/01/21 12:09 12:20 12:31 13:00 Temp 36.0 35.9 Pulse 80 83 83 96 Resp 22 22 31 B/P (MAP) 111/52 106/53 145/64 Pulse Ox 100 100 100 O2 Delivery Room Air Room Air Room Air 10/01/21 10/01/21 10/01/21 10/01/21 13:34 14:00 14:18 14:32 Temp 36.4 36.5 36.2 Pulse 89 85 77 76 Resp 21 16 15 16 B/P (MAP) 141/84 122/66 125/35 128/48 Pulse Ox 100 90 100 100 O2 Delivery Room Air Room Air Room Air Room Air Capillary Refill : Less Than 3 Seconds Constitutional: other (unresponsive; moves right arm and thrashes in the bed when touched; thin, frail) Neck: No carotid bruit; carotid pulses are 2 + bilaterally Respiratory: No accessory muscle use, No respiratory distress; chest expansion is symmetric, chest is bilaterally symmetric, other (fair air entry) Cardiovascular: regular rate-rhythm; No JVD; S1 and S2, systolic murmur Gastrointestinal: soft Extremities: no lower extremity edema bilateral Neurologic/Psychiatric: other (see above) Skin: cool Data Review Labs Laboratory Tests 10/01/21 07:39: White Blood Count 21.5H, Red Blood Count 1.41L, Hemoglobin 4.2*L, Hematocrit 14*L, Mean Corpuscular Volume 100H, Mean Corpuscular Hemoglobin 30, Mean Corpuscular Hemoglobin Concent 30L, Red Cell Distribution Width 15.7H, Platelet Count 359, Mean Platelet Volume 10.1, Immature Granulocyte % (Auto) 1, Neutroph ils (%) (Auto) 83H, Lymphocytes (%) (Auto) 12, Monocytes (%) (Auto) 3, Eosinophils (%) (Auto) 0, Basophils (%) (Auto) 0, Neutrophils # (Auto) 17.9H, Lymphocytes # (Auto) 2.5, Monocytes # (Auto) 0.7, Eosinophils # (Auto) 0.0, Basophils # (Auto) 0.0, Immature Granulocyte # (Auto) 0.3H, Neutrophils % (Manual) 72, Lymphocytes % (Manual) 14, Monocytes % (Manual) 2, Eosinophils % (Manual) 0, Basophils % (Manual) 0, Band Neutrophils 12, Nucleated Red Blood Cells 2, Platelet Estimate NORMAL, Polychromasia SLIGHT, Hypochromasia 1+, Poikilocytosis 1+, Microcytosis 1+, Macrocytosis 1+, Elliptocytes SLIGHT, Prothrombin Time 14.6, INR Comment 1.1, Activated Partial Thromboplast Time 22L, Sodium Level 141, Potassium Level 5.8H, Chloride Level 106, Carbon Dioxide Level 17L, Anion Gap 18H, Blood Urea Nitrogen 56H, Creatinine 1.82H, Estimat Glomerular Filtration Rate 27, BUN/Creatinine Ratio 31, Glucose Level 147H, Calcium Level 9.1, Corrected Calcium 10.1, Magnesium Level 2.7H, Total Bilirubin 0.4, Aspartate Amino Transf (AST/SGOT) 46H, Alanine Aminotransferase (ALT/SGPT) 36, Alkaline Phosphatase 72, Myoglobin 864.6H, Troponin I 0.62*H, C-Reactive Protein High Sensitivity 9.06H, Total Protein 5.9L, Albumin 2.8L 10/01/21 07:47: Urine Color YELLOW, Urine Clarity SL CLOUDY, Urine pH 6.0, Urine Specific [place] 1.020, Urine Protein NEGATIVE, Urine Glucose (UA) NEGATIVE, Urine Ketones NEGATIVE, Urine Nitrite NEGATIVE, Urine Bilirubin NEGATIVE, Urine Urobilinogen 0.2, Urine Leukocyte Esterase NEGATIVE, Urine RBC (Auto) NEGATIVE, Urine RBC 2-5H, Urine WBC 5-10H, Urine Squamous Epithelial Cells 0-2, Urine Crystals NONE, Urine Bacteria LARGEH, Urine Casts NONE, Urine Mucus SMALLH, Urine Culture Indicated YES 10/01/21 08:10: Influenza Type A Antigen NEGATIVE, Influenza Type B Antigen NEGATIVE 10/01/21 08:12: SARS-CoV-2 RNA (RT-PCR) Not Detected 10/01/21 09:00: Lactic Acid Level 7.95*H 10/01/21 11:15: Lactic Acid Level 9.09*H, B-Type Natriuretic Peptide 1298.4H 10/01/21 13:45: Lactic Acid Level 7.02*H, Hemoglobin 6.8#*L, Hematocrit 21L A/P-Cardiology Assessment/Admission Diagnosis Elevated troponin - likely Type 2 OK secondary to profound anemia and hypotension Anemia - H/H 4.2 - management per medical services - receiving transfusions - not suitable for antiplatelet therapy UTI with sepsis - management per medical services AMS Renal insufficiency - likely d/t vol depletion Hyperkalemia - likely d/t vol depletion 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 for which she was transferred to [facility] and then back to [facility] IR[facility] in 2017 Spouse reports 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 [facility] - does not recall the details, reports a h/o coronary stenting by Dr Manzano who retired more than 5 years ago Discussion and Recomendations Elevated troponin - likely Type 2 OK secondary to sepsis and hypotension - management per medical services - not suitable for ASA because of profound anemia that is suspected to be due to occult, ongoing blood loss that is being managed by Dr Blackwell Sepsis - management per medical services - receiving IVF Renal insufficiency - likely d/t vol depletion Hyperkalemia - likely secondary to vol depletion Gross anemia - undetermined etiology - management per medical services AMS - management per medical services Monitor lab - replace electrolytes as indicated Poor prognosis DNR status Further recs will be based on her hospital course We would like to thank Dr. Blackwell for this consult Clinical Quality Measures DVT/VTE Risk/Contraindication: Contraindications-Pharm: Other *list below* Other: OLEG Marques MD FACP FAC CCDS Oct 01, 2021 15:34
[2021-10-01] MEDS ORDERED: ASPI-1238 PO (15:35)
[2021-10-01] MEDS ORDERED: MULT-1136 PO (15:35)
[2021-10-01] MEDS ORDERED: C,E,1CAP PO (15:35)
[2021-10-01] MEDS ORDERED: DONE10TA41 PO (15:35)
[2021-10-01 19:01] LABS: HEMOGLOBIN 8.6 g/dL (11.5-16.0)
[2021-10-01 19:18] LABS: CALCIUM 7.5 MG/DL (8.5-10.1)
[2021-10-01 19:23] LABS: CREATININE SERUM 1.65 MG/DL (0.60-1.30)
[2021-10-01] MEDS: PANTOPRAZOLE 40 MG (PROTONIX) VIAL IV SCH (21:09)
--- NOTE | 2021-10-01 22:41 | Consultation - Surgery ---
History of Present Illness History of Present Illness Patient Consulted On(clarissa/time) 10/01/21 22:36 Date Seen by Provider: Oct 01, 2021 Time Seen by Provider: 16:23 History of Present Illness Consult requested by Dr. Blackwell for GI bleed. Patient is a 86-year-old female who was altered more than normal and had recent falls. Patient family states September 10 she began having coffee-ground emesis. She is also having black stools that time. Patient's daughter states she has bad dementia which is doing overall her family's to except. She states that she has a history of ulcers her entire life. She used to be positive for H. pylori. Patient unable to provide any information. Daughter at bedside. Patient with white blood cell count 21,000. Her lactic acid is greater than 7. She is found to be anemic with a hemoglobin of [address] head face, cspine. 1. Likely chronic areas of ischemia involving the inferior right cerebellum and right frontal lobe. If indicated, further evaluation with MRI brain may be considered. 2. No acute fracture or dislocation in the cervical spine. 3. No acute facial fractures. Please note motion artifact somewhat limits evaluation of the mandible. 4. 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 5. No acute hemorrhage. 6. Straightening of the cervical spine with grade 1 anterolisthesis of C3 on C4. Allergies and Home Medications Allergies Coded Allergies: amoxicillin (Verified Allergy, Unknown, 10/24/16) citalopram (Verified Allergy, Unknown, 10/24/16) diltiazem (Verified Allergy, Unknown, 10/24/16) gluten (Verified Allergy, Unknown, RASH, 10/24/16) hydrochlorothiazide (Verified Allergy, Unknown, 10/24/16) nitrofurantoin (Verified Allergy, Unknown, 10/24/16) quinapril (Verified Allergy, Unknown, 10/24/16) sertraline (Verified Allergy, Unknown, 10/24/16) triamterene (Verified Allergy, Unknown, 10/24/16) Patient Home Medication List Home Medication List Reviewed: Yes Amlodipine Besylate (Amlodipine Besylate) 5 Mg Tablet, 5 MG PO DAILY, (Reported) Entered as Reported by: CORTNEY IXONG on 10/27/16 1051 Last Action: Reviewed Aspirin (Aspirin EC) 81 Mg Tablet., 81 MG PO DAILY, (Reported) Entered as Reported by: FRANK BALLARD on 10/01/211534 Last Action: Reviewed Atorvastatin Calcium (Atorvastatin Calcium) 40 Mg Tablet, 40 MG PO HS, (Report ed) Entered as Reported by: CORTNEY XIONG on 10/27/161052 Last Action: Reviewed C,E,Zinc,Copper 11/Fekem8g/Lut (Ocuvite Adult 50 Plus Softgel) 250 Mg (90 Mg-160 Mg)-5 Mg-1 Mg Capsule, 1 EACH PO HS, (Reported) Entered as Reported by: FRANK BALLARD on 10/01/211534 Last Action: Reviewed Celecoxib (Celecoxib) 200 Mg Capsule, 200 MG PO DAILY, (Reported) Entered as Reported by: FRANK BALLARD on 10/01/211332 Last Action: Reviewed Donepezil HCl (Donepezil HCl) 10 Mg Tablet, 10 MG PO HS, (Reported) Entered as Reported by: FRANK BALLARD on 10/01/211534 Last Action: Reviewed Lidocaine (Lidocaine 5% Patch) 5 % Adh..patch, 1 PATCH TD DAILY PRN for PAIN- BREAKTHROUGH, (Reported) Entered as Reported by: FRANK BALLARD on 10/01/211332 Last Action: Reviewed Multivitamin (Multivitamin) 1 Each Tablet, 1 EACH PO HS, (Reported) Entered as Reported by: FRANK BALLARD on 10/01/211534 Last Action: Reviewed [place]-3 Acid Ethyl Esters (Lovaza) 1 Gm Capsule, 1 GM PO BID, (Reported) Entered as Reported by: CHINYERE GORDON on 10/24/16 1900 Last Action: Reviewed Omeprazole (Omeprazole) 20 Mg Capsule.dr, 20 MG PO DAILY, (Reported) Entered as Reported by: FRANK BALLARD on 10/01/211332 Last Action: Reviewed Sucralfate (Sucralfate) 1 Gram/10 Ml Oral.susp, 10 ML PO ACHS, (Reported) Entered as Reported by: FRANK BALLARD on 10/01/211332 Last Action: Reviewed Discontinued Medications Aspirin (Aspirin) 81 Mg Tab.chew, 81 MG PO DAILY, (Reported) Discontinued Reason: No Longer Taking Entered as Reported by: CORTNEY XIONG on 10/27/161052 Last Action: Discontinued Cyclosporine (Restasis) 1 Each Droperette, 1 DROP OU BID Discontinued Reason: No Longer Taking Prescribed by: TIFFANY DURAN on 10/27/161924 Last Action: Discontinued Folic Acid/Vitamin B Comp W-C (Nephro-Alex Tablet) 0.8 Mg Tablet, 0.8 MG PO HS, (Reported) Discontinued Reason: No Longer Taking Entered as Reported by: CHINYERE GORDON on 10/24/161425 Last Action: Discontinued Losartan Potassium (Losartan Potassium) 100 Mg Tablet, 100 MG PO DAILY Discontinued Reason: No Longer Taking Prescribed by: TIFFANY DURAN on 10/27/161924 Last Action: Discontinued Metoprolol Succinate (Metoprolol Succinate) 25 Mg Tab.er.24h, 75 MG PO DAILY, (Reported) Discontinued Reason: No Longer Taking Entered as Reported by: CORTNEY XIONG on 10/27/16 105 Last Action: Discontinued Nitroglycerin (Nitroglycerin) 0.4 Mg Tab.subl, 0.4 MG SL UD PRN for CHEST PAIN Discontinued Reason: No Longer Taking Prescribed by: TIFFANY DURAN on 10/27/161924 Last Action: Discontinued Omeprazole Magnesium (Prilosec Otc) 20 Mg Tablet.dr, 20 MG PO DAILY, (Reported) Discontinued Reason: No Longer Taking Entered as Reported by: CHINYERE GORDON on 10/24/161425 Last Action: Discontinued Potassium Chloride (K-Tab ER) 10 Meq Tablet.er, 10 MEQ PO BID, (Reported) Discontinued Reason: No Longer Taking Entered as Reported by: CHNIYERE GORDON on 10/24/161425 Last Action: Discontinued Past Cmybphy-Nezhyl-Pncuux Hx Patient Social History Smoking Status: Never a Smoker Alcohol Use?: No Have you traveled recently?: No Immunizations Up To Date Date of Pneumonia Vaccine: Jan 19, 2016 Surgeries History of Surgeries: Yes (Perforated duodenal ulcer) Cardiovascular History of Cardiac Disorders: Yes Cardiac Disorders: High Cholesterol, Hypertension Neurological History of Neurological Disord: Yes Neurological Disorders: Stroke Gastrointestinal History of Gastrointestinal Di: Yes (Perforated duodenal ulcer) Gastrointestinal Disorders: Ulcer Musculoskeletal History of Musculoskeletal Dis: Yes (Osteoarthritis; Scoliosis- L3,4,5) Musculoskeletal Disorders: Scoliosis, Chronic Back Pain Endocrine History of Endocrine Disorders: No Cancer History of Cancer: No Reviewed Nursing Assessment Reviewed/Agree w Nursing PMH: Yes Family Medical History Significant Family History: No Pertinent Family Hx Review of Systems-General ROS-Unable to Obtain: unable to obtain due to patient condition Physical Exam-General Problems Physical Exam Vital Signs Vital Signs - First Documented 10/01/21 10/01/21 07:28 09:42 Temp 36.1 Pulse 74 Resp 12 B/P (MAP) 100/49 (66) Pulse Ox 98 O2 Delivery Room Air Capillary Refill : Less Than 3 Seconds General Appearance: mild distress, thin HEENT: normal ENT inspection, pale conjunctivae (R), pale conjunctivae (L) Neck: non-tender, supple Respiratory: chest non-tender, no respiratory distress, no accessory muscle use Cardiovascular: regular rate, rhythm, no murmur Gastrointestinal: soft, tenderness (diffuse) Rectal: deferred (black stool on bed sheet) Back: no vertebral tenderness; No muscle spasm Extremities: non-tender, other (multiple healing abraisions) Neurologic/Psychiatric: alert (does not communicate); No normal mood/affect, No oriented x 3 Skin: other (abraisions), pallor Lymphatic: no adenopathy Data Review Labs Laboratory Tests 10/01/21 07:39: White Blood Count 21.5H, Red Blood Count 1.41L, Hemoglobin 4.2*L, Hematocrit 14*L, Mean Corpuscular Volume 100H, Mean Corpuscular Hemoglobin 30, Mean Corpuscular Hemoglobin Concent 30L, Red Cell Distribution Width 15.7H, Platelet Count 359, Mean Platelet Volume 10.1, Immature Granulocyte % (Auto) 1, Neutrophils (%) (Auto) 83H, Lymphocytes (%) (Auto) 12, Monocytes (%) (Auto) 3, Eosinophils (%) (Auto) 0, Basophils (%) (Auto) 0, Neutrophils # (Auto) 17.9H, Lymphocytes # (Auto) 2.5, Monocytes # (Auto) 0.7, Eosinophils # (Auto) 0.0, Basophils # (Auto) 0.0, Immature Granulocyte # (Auto) 0.3H, Neutrophils % (Manual) 72, Lymphocytes % (Manual) 14, Monocytes % (Manual) 2, Eosinophils % (Manual) 0, Basophils % (Manual) 0, Band Neutrophils 12, Nucleated Red Blood Cells 2, Platelet Estimate NORMAL, Polychromasia SLIGHT, Hypochromasia 1+, Poikilocytosis 1+, Microcytosis 1+, Macrocytosis 1+, Elliptocytes SLIGHT, Prothrombin Time 14.6, INR Comment 1.1, Activated Partial Thromboplast Time 22L, Sodium Level 141, Potassium Level 5.8H, Chloride Level 106, Carbon Dioxide Level 17L, Anion Gap 18H, Blood Urea Nitrogen 56H, Creatinine 1.82H, Estimat Glomerular Filtration Rate 27, BUN/Creatinine Ratio 31, Glucose Level 147H, C alcium Level 9.1, Corrected Calcium 10.1, Magnesium Level 2.7H, Total Bilirubin 0.4, Aspartate Amino Transf (AST/SGOT) 46H, Alanine Aminotransferase (ALT/SGPT) 36, Alkaline Phosphatase 72, Myoglobin 864.6H, Troponin I 0.62*H, C-Reactive Protein High Sensitivity 9.06H, Total Protein 5.9L, Albumin 2.8L 10/01/21 07:47: Urine Color YELLOW, Urine Clarity SL CLOUDY, Urine pH 6.0, Urine Specific [place] 1.020, Urine Protein NEGATIVE, Urine Glucose (UA) NEGATIVE, Urine Ketones NEGATIVE, Urine Nitrite NEGATIVE, Urine Bilirubin NEGATIVE, Urine Urobilinogen 0.2, Urine Leukocyte Esterase NEGATIVE, Urine RBC (Auto) NEGATIVE, Urine RBC 2-5H, Urine WBC 5-10H, Urine Squamous Epithelial Cells 0-2, Urine Crystals NONE, Urine Bacteria LARGEH, Urine Casts NONE, Urine Mucus SMALLH, Urine Culture Indicated YES 10/01/21 08:10: Influenza Type A Antigen NEGATIVE, Influenza Type B Antigen NEGATIVE 10/01/21 08:12: SARS-CoV-2 RNA (RT-PCR) Not Detected 10/01/21 09:00: Lactic Acid Level 7.95*H 10/01/21 11:15: Lactic Acid Level 9.09*H, B-Type Natriuretic Peptide 1298.4H 10/01/21 13:45: Lactic Acid Level 7.02*H, Hemoglobin 6.8#*L, Hematocrit 21L 10/01/21 18:54: Hemoglobin 8.6#L, Hematocrit 25L, Sodium Level 142, Potassium Level 5.0, Chloride Level 111H, Carbon Dioxide Level 20L, Anion Gap 11, Blood Urea Nitrogen 50H, Creatinine 1.65H, Estimat Glomerular Filtration Rate 30, BUN/Creatinine Ratio 30, Glucose Level 137H, Calcium Level 7.5L Assessment/Plan Assessment/Plan Assessment/Plan fall gi bleed likely upper history of ulcers, severe anemia being transfused. diffuse abdominal pain, could be ischemic bowel due to low flow hold any anticoagulation follow labs and transfuse as needed. patient with diffuse abdominal pain could be from low flow states Likely poor prognosis, need to stabilize patient would consider EGD Protonix Clinical Quality Measures DVT/VTE Risk/Contraindication: Contraindications-Pharm: Other *list below* Other: LEILA Mark DO Oct 01, 2021 22:41
[2021-10-02] MEDS: NS IV 1000 ML 1,000 ML IV SCH ×3 (03:05→15:30)
[2021-10-02 04:20] LABS: BASOPHILS % (AUTO) 0 % (0-10); EOSINOPHILS % (AUTO) 0 % (0-10); HEMATOCRIT 25 % (35-52); HEMOGLOBIN 8.4 g/dL (11.5-16.0); LYMPHOCYTES # (AUTO) 2.3 10^3/uL (1.0-4.0); LYMPHOCYTES % (AUTO) 11 % (12-44); MEAN CORPUSCULAR HEMOGLOBIN 30 pg (25-34); MEAN CORPUSCULAR HGB CONC 34 g/dL (32-36); MEAN CORPUSCULAR VOLUME 89 fL (80-99); MONOCYTES # (AUTO) 0.8 10^3/uL (0.0-1.0); MONOCYTES % (AUTO) 4 % (0-12); NEUTROPHILS # (AUTO) 18.4 10^3/uL (1.8-7.8); NEUTROPHILS % (AUTO) 85 % (42-75); PLATELET COUNT 261 10^3/uL (130-400); WHITE BLOOD COUNT 21.7 10^3/uL (4.3-11.0)
[2021-10-02 04:30] LABS: ALBUMIN 2.4 GM/DL (3.2-4.5); POTASSIUM 4.3 MMOL/L (3.6-5.0)
[2021-10-02 04:32] LABS: CALCIUM 7.4 MG/DL (8.5-10.1)
[2021-10-02 04:33] LABS: TOTAL PROTEIN 4.7 GM/DL (6.4-8.2)
[2021-10-02 04:35] LABS: BILIRUBIN,TOTAL 0.7 MG/DL (0.1-1.0)
[2021-10-02 04:37] LABS: CREATININE SERUM 1.54 MG/DL (0.60-1.30)
[2021-10-02 04:40] LABS: MAGNESIUM 2.4 MG/DL (1.6-2.4)
[2021-10-02] MEDS ORDERED: KCL 20 MEQ TAB (K-DUR) PO SCH (06:00)
[2021-10-02] MEDS ORDERED: MAGNESIUM 1 GM/100 ML IVPB 100 ML IV SCH (06:00)
[2021-10-02] MEDS ORDERED: POTASSIUM CL 10MEQ/50ML IVPB 50 ML IV SCH (06:00)
--- NOTE | 2021-10-02 06:02 | Progress Note - Hospitalist ---
Subjective HPI/CC On Admission Date Seen by Provider: Oct 02, 2021 Time Seen by Provider: 09:00 CC: GI Bleed with Hypotension HPI: This is a pt of [facility]. Pt presented from [place] [facility] with severe GI bleed with coffee ground emesis and lower GI bleed. Her hemoglobin was 4.2. She was hypotensive, improved with IV fluids. She remains a DNR. She lives at home with her who has taken care of her since the stroke. Upon assessment she appeared to be very frail, very declined, and very altered. I did have a long conversation with and daughter and multiple questions answered. We will try to provide blood transfusion and support, but she could very well pass away. PICC line will be placed. Dr. Gallardo and Dr. Newell both consulted for GI bleed and elevated troponin respectively. Subjective/Events-last exam Pt remained stable, no longer critical but she appears to be very end stage Adding procalcitonin and a chest x-ray to make sure this hasn't gone into a pneumonia UTI on Rocephin Transferring to the floor Hemoglobin was 8.4 after two units of blood Updated family but they seem to tell me things different than asking the nurse after I ask if they have any questions. They seem to not realize she is at the end of her life. Will continue to be supportive They want the DNR status reversed after I rounded and told the nurse that they did not approve that. That is the order I obtained from the ER what was DNR on the ER chart when I accepted the pt. Review of Systems Neurological: Confusion Focused Exam Lactate Level 10/01/21 09:00: Lactic Acid Level 7.95*H 10/01/21 11:15: Lactic Acid Level 9.09*H 10/01/21 13:45: Lactic Acid Level 7.02*H Objective Exam Vital Signs Vital Signs Date Time Temp Pulse Resp B/P (MAP) Pulse Ox O2 Delivery O2 Flow Rate FiO2 10/02/21 19:22 37.0 82 18 134/59 (84) 98 Room Air Capillary Refill : Less Than 3 Seconds General Appearance: No Apparent Distress, WD/WN, Chronically ill, Thin Respiratory: Lungs Clear, Normal Breath Sounds, Decreased Breath Sounds Cardiovascular: Regular Rate, Rhythm Neurologic/Psychiatric: Disoriented Results/Procedures Lab Laboratory Tests 10/02/21 04:15 Patient resulted labs reviewed. Assessment/Plan Assessment and Plan Assess & Plan/Chief Complaint Assessment: Hypotension GIB Severe anemia Prior CVA Chronic debility AMBIKA Elevated troponin h/o HTN HLP Plan: ICU Transfuse Dr Gallardo consult Dr Newell consult DNR Very grave prognosis 10/02: Transfer to 4th floor Change full code to DNR at family request Diagnosis/Problems Diagnosis/Problems (1) Acute GI bleeding Status: Acute (2) Dehydration Status: Acute (3) Non-ST elevated myocardial infarction Status: Acute (4) Anemia due to GI blood loss Status: Acute (5) Elevated lactic acid level Status: Acute (6) Cerebrovascular accident (CVA) involving right cerebral hemisphere Clinical Quality Measures DVT/VTE Risk/Contraindication: Contraindications-Pharm: Other *list below* Other: HANS Han DO Oct 02, 2021 06:02
[2021-10-02] MEDS: PANTOPRAZOLE 40 MG (PROTONIX) VIAL IV SCH ×2 (08:05→21:02)
--- NOTE | 2021-10-02 09:22 | Diagnostic Imaging Report ---
INDICATION: Elevated white blood cell count. Frontal chest obtained at 8:57 a.m. and compared to 10/01/2021. Heart and mediastinal silhouette are normal in appearance. The lungs are clear. There is no pneumothorax or pleural fluid. IMPRESSION: Negative chest. Dictated by: Dictated on workstation # [id number]
--- NOTE | 2021-10-02 10:31 | Occupational Therapy Eval ---
OT Evaluation-General/PLF Medical Diagnosis Admission Date Oct 01, 2021 at 10:25 Medical Diagnosis: GI bleed Onset Date: Oct 01, 2021 Therapy Diagnosis Therapy Diagnosis: dependent adls Height/Weight Height (Feet): 5 Height (Inches): 2.00 Weight (Pounds): 121 Weight (Ounces): 0.0 Precautions Precautions/Isolations: Fall Prevention, Standard Precautions, Pressure Ulcer Referral Referral Reason: Evaluation/Treatment Medical History Pertinent Medical History: Arthritis, Dementia Current History Pt admitted from [facility] with severe GI bleed with coffee ground emesis. Hemoglobin at 4.2. She was hypotensive but improved with IV fluids. Blood transfusion performed. OT unable to rouse pt during assessment, all PLOF provided by spouse. Pt lives with who has been her caregiver since her stroke ~1.5 years ago. Spouse is very hopeful and appears somewhat in denial on pt's current prognoses/level. He states that she was dependent to go from supine>sit. He would stand her, walk her to bathroom and complete all adls for her. He states that she would often want to go back to bed after getting dressed but he would made her walk and sit on the couch during the day. Reviewed History: Yes Social History Home: Single Level Current Living Status: Spouse spouse states "couple steps" but that he worked for a [employer] that builds ramps and he can get one if needed. ADL-Prior Level of Function SCALE: Activities may be completed with or without assistive devices. 6-Ygmisjckmm-jpzubkb completes the activity by him/herself with no assistance from a helper. 5-Set-up or Clean-up Assistance-helper sets up or cleans up; patient completes activity. [place] assists only prior to or following the activity. 4-Supervision or Touching Assistance-helper provides verbal cues and/or touching/steadying and/or contact guard assistance as patient completes activity. Assistance may be provided throughout the activity or intermittently. 3-Partial/Moderate Assistance-helper does LESS THAN HALF the effort. [place] lifts, holds or supports trunk or limbs, but provides less than half the effort. 2-Substantial/Maximal Assistance-helper does MORE THAN HALF the effort. [place] lifts or holds trunk or limbs and provides more than half the effort. 9-Hbozljrfu-htjsnk does ALL the effort. Patient does none of the effort to complete the activity. Or, the assistance of 2 or more helpers is required for the patient to complete the activity. If activity was not attempted, code reason: 7-Patient Refused. 9-Not Applicable-not attempted and the patient did not perform the activity before the current illness, exacerbation or injury. 10-Not Attempted due to Environmental Limitations-(lack of equipment, weather restraints, etc.). 88-Not Attempted due to Medical Conditions or Safety Concerns. Self Care: Dependent Functional Cognition: Unknown Drive Self: No OT Current Status Subjective Pt inert, unable to rouse despite sternal rub. Appearance Pt left supine, all needs within reach, family in the room. Mental Status/Objective Patient Orientation: Unable to Assess Attachments: Mills Catheter, IV, Telemetry ADL-Treatment Therapy unable to rouse pt, despite several stimuli attempts. While therapy was in the room, pt incontinent of black liquid stools. Dependent to roll R/L and perform kathy care. Pt still sleeping throughout kathy care. At this time, pt is not appropriate for OT services as she is unable to fully participate in functional activity. If pt becomes more alert and can actively participate in therapy, please send new OT orders. Education Teaching Recipient: Family Teaching Methods: Discussion OT Record Changer Tester Goals Longterm Goals 1=Demonstrate adherence to instructed precautions during ADL tasks. 2=Patient will verbalize/demonstrate understanding of assistive devices/modifications for ADL. 3=Patient will improve strength/tolerance for activity to enable patient to perform ADL's. OT Education/Plan Problem List/Assessment Assessment: No Skilled OT Needs ID'd Discharge Recommendations Plan/Recommendations: Discontinue OT Target Placement palliative care/hospice Treatment Plan/Plan of Care Treatment,Training & Education: Yes Patient would benefit from OT for education, treatment and training to promote independence in ADL's, mobility, safety and/or upper extremity function for ADL's. Plan of Care: ADL Retraining, Caregiver Training, Functional Mobility, UE Funct Exercise/Act Treatment Duration: Oct 02, 2021 Frequency: 1 time per week Estimated Hrs Per Day: .25 hour per day Rehab Potential: Poor Time/GCodes Start Time: 10:02 Stop Time: 10:16 Total Time Billed (hr/min): 14 Billed Treatment Time 1 visit Radha Cervantes OT Oct 02, 2021 10:31
--- NOTE | 2021-10-02 10:35 | Physical Therapy Evaluation ---
PT Evaluation-General Medical Diagnosis Admission Date Oct 01, 2021 at 10:25 Medical Diagnosis: GI bleed Onset Date: Oct 01, 2021 Therapy Diagnosis Therapy Diagnosis: impaired mobility Height/Weight Height (Feet): 5 Height (Inches): 2.00 Weight (Pounds): 121 Weight (Ounces): 0.0 Precautions Precautions/Isolations: Fall Prevention, Standard Precautions, Pressure Ulcer Referral Physician: Keial Blackwell DO Reason for Referral: Evaluation/Treatment Medical History Pertinent Medical History: Arthritis, Dementia Additional Medical History Past Medical History High Cholesterol, Hypertension Stroke Ulcer Scoliosis, Chronic Back Pain Reviewed History: Yes Social History Current Living Status: Spouse Entry Into Home: Stairs With Railing PT Steps Into Home: 2 Prior Prior Level of Function SCALE: Activities may be completed with or without assistive devices. 8-Opvjagevjp-watponk completes the activity by him/herself with no assistance from a helper. 5-Set-up or Clean-up Assistance-helper sets up or cleans up; patient completes activity. [place] assists only prior to or following the activity. 4-Supervision or Touching Assistance-helper provides verbal cues and/or touching/steadying and/or contact guard assistance as patient completes activity. Assistance may be provided throughout the activity or intermittently. 3-Partial/Moderate Assistance-helper does LESS THAN HALF the effort. [place] lifts, holds or supports trunk or limbs, but provides less than half the effort. 2-Substantial/Maximal Assistance-helper does MORE THAN HALF the effort. [place] lifts or holds trunk or limbs and provides more than half the effort. 2-Lqsipvsbw-avuxmy does ALL the effort. Patient does none of the effort to complete the activity. Or, the assistance of 2 or more helpers is required for the patient to complete the activity. If activity was not attempted, code reason: 7-Patient Refused. 9-Not Applicable-not attempted and the patient did not perform the activity before the current illness, exacerbation or injury. 10-Not Attempted due to Environmental Limitations-(lack of equipment, weather restraints, etc.). 88-Not Attempted due to Medical Conditions or Safety Concerns. Bed Mobility: 3 Transfers (B,C,W/C): 3 Gait: 3 Stairs: 3 Indoor Mobility (Ambulation): Needed Some Help Stairs: Needed Some Help PT Evaluation-Current Subjective Patient in bed pre tx, she is unresponsive, doesn't open eyes, does moan occasionally. Patient has had a BM. Pt/Family Goals none stated Objective Patient Orientation: Unresponsive Attachments: SCD's, Mills Catheter, IV ROM/Strength ROM Lower Extremities WNL Transfers Roll Left to Right (QC): 1 Rolled patient from side to side for cleaning BM, patient dependent for this. OT assisted with rolling and cleaning. Treatment Patient has good ROM in both legs except her ankles can barely get to neutral d orsiflexion with pressure. Assessment/Needs Patient in bed post tx with nurse call, phone, tray, family in room. Recommend PROM and stretching to prevent contractures while she is here and if she becomes more responsive then advance the therapy. Rehab Potential: Poor PT Barn Worker Goals Correction Goals PT Barn Worker Goals Time Frame: Oct 09, 2021 Roll Left & Right (QC): 2 Sit to Lying (QC): 2 Lying-Sitting on Side/Bed(QC): 2 Sit to Stand (QC): 2 Chair/Nkh-if-Ltyyk Xfer(QC): 2 PT Plan Problem List Problem List: Activity Tolerance, Functional Strength, Safety, Balance, Gait, Transfer, Bed Mobility, ROM Treatment/Plan Treatment Plan: Continue Plan of Care Treatment Plan: Bed Mobility, Education, Functional Activity Kareen, Functional Strength, Gait, Safety, Therapeutic Exercise, Transfers Treatment Duration: Oct 09, 2021 Frequency: 6 times per week Estimated Hrs Per Day: .25 hour per day Patient and/or Family Agrees t: Yes Safety Risks/Education Patient Education: Correct Positioning, Safety Issues Teaching Recipient: Patient Teaching Methods: Demonstration, Discussion Response to Teaching: Reinforcement Needed Discharge Recommendations Plan Patient will perform bed mobility and transfer training, balance and endurance training, functional strengthening, gait training, and education, to improve functional mobility and independence at home. Therapy Discharge Recommendati: Other, See Comments (NH), Post Acute PT Time/GCodes Time In: 1004 Time Out: 1014 Total Billed Treatment Time: 10 Total Billed Treatment 1 visit JOSE MURRIETA PT Oct 02, 2021 10:35
--- NOTE | 2021-10-02 11:07 | Progress Note - Surgery ---
Subjective Date Seen by a Provider: Oct 02, 2021 Time Seen by a Provider: 11:07 Subjective/Events-last exam Patient has been at bedside along with grandson. Patient is not alert. She is lying in bed sleeping with out able to be woke up. Patient's states this is the way she always is at this time in the day. She does not seem to have any abdominal pain on exam. Her hemoglobin did go up with transfusion. Her white count is still 21,000. She has not had any nausea or vomiting fever sweats chills shortness of breath or chest pain. Focused Exam Lactate Level 10/01/21 09:00: Lactic Acid Level 7.95*H 10/01/21 11:15: Lactic Acid Level 9.09*H 10/01/21 13:45: Lactic Acid Level 7.02*H Objective Exam Vital Signs Date Time Temp Pulse Resp B/P (MAP) Pulse Ox O2 Delivery O2 Flow Rate FiO2 10/02/21 10:00 69 15 148/60 97 Room Air 10/02/21 09:00 62 15 118/44 93 Room Air 10/02/21 08:00 76 22 115/50 97 Room Air 10/02/21 08:00 99 Room Air 10/02/21 07:54 36.4 10/02/21 07:00 67 16 114/46 95 Room Air 10/02/21 07:00 67 10/02/21 06:00 80 19 152/61 99 Room Air 10/02/21 05:00 71 16 112/47 94 Room Air 10/02/21 04:00 36.5 10/02/21 04:00 99 Room Air 10/02/21 04:00 82 22 159/76 100 Room Air 10/02/21 03:00 75 11 135/51 98 Room Air 10/02/21 02:00 72 18 122/54 97 Room Air 10/02/21 01:00 81 25 137/61 99 Room Air 10/02/21 01:00 81 10/02/21 00:00 80 15 140/58 99 Room Air 10/01/21 23:59 98 Room Air 10/01/21 23:47 37.5 10/01/21 23:00 75 13 163/76 99 Room Air 10/01/21 22:00 81 14 142/57 99 Room Air 10/01/21 21:00 81 13 135/57 99 Room Air 10/01/21 20:00 36.9 10/01/21 20:00 84 16 151/63 98 Room Air 10/01/21 20:00 98 Room Air 10/01/21 19:00 87 33 140/67 96 Room Air 10/01/21 19:00 87 10/01/21 18:00 83 29 121/49 99 Room Air 10/01/21 17:00 86 21 139/57 96 Room Air 10/01/21 16:15 36.9 84 19 183/84 100 Room Air 10/01/21 16:00 87 26 153/84 Room Air 10/01/21 16:00 100 Room Air 10/01/21 15:47 36.9 10/01/21 15:00 76 17 109/48 100 Room Air 10/01/21 14:32 36.2 76 16 128/48 100 Room Air 10/01/21 14:18 36.5 77 15 125/35 100 Room Air 10/01/21 14:00 85 16 122/66 90 Room Air 10/01/21 13:34 36.4 89 21 141/84 100 Room Air 10/01/21 13:00 96 31 145/64 100 Room Air 10/01/21 12:31 83 10/01/21 12:20 35.9 83 22 106/53 100 Room Air 10/01/21 12:09 36.0 80 22 111/52 100 Room Air 10/01/21 12:00 36.2 10/01/21 12:00 64 16 111/52 95 Room Air 10/01/21 12:00 100 Room Air 10/01/21 11:15 81 17 110/39 Room Air I & O 10/02/21 07:00 Intake Total 1050 ml Output Total 720 ml Balance 330 ml Capillary Refill : Less Than 3 Seconds General Appearance: Chronically ill, Thin, Other (pale, lethargic, confused, non-verbal) HEENT: PERRL/EOMI; No Moist Mucous Membranes (dry mucous membranes) Neck: Full Range of Motion Respiratory: Chest Non Tender, No Accessory Muscle Use, No Respiratory Distress Cardiovascular: No JVD, Tachycardia Peripheral Pulses: 2+ Carotid (R) Gastrointestinal: non tender (Does not wake to deep palpation), soft Extremity: Normal Range of Motion, No Pedal Edema, Slow Capillary Refill Neurologic/Psychiatric: No Alert, No Oriented x3; Other (lathargic) Skin: Cool, Mottled, Pallor, Other (Skin abrasions to forehead and areas on extremities) Results Lab Laboratory Tests 10/01/21 11:15: Lactic Acid Level 9.09*H, B-Type Natriuretic Peptide 1298.4H 10/01/21 13:45: Lactic Acid Level 7.02*H, Hemoglobin 6.8#*L, Hematocrit 21L 10/01/21 18:54: Hemoglobin 8.6#L, Hematocrit 25L, Sodium Level 142, Potassium Level 5.0, Chloride Level 111H, Carbon Dioxide Level 20L, Anion Gap 11, Blood Urea Nitrogen 50H, Creatinine 1.65H, Estimat Glomerular Filtration Rate 30, BUN/Creatinine Ratio 30, Glucose Level 137H, Calcium Level 7.5L 10/02/21 04:00: Procalcitonin 1.49H 10/02/21 04:15: White Blood Count 21.7H, Red Blood Count 2.81L, Hemoglobin 8.4L, Hematocrit 25L, Mean Corpuscular Volume 89, Mean Corpuscular Hemoglobin 30, Mean Corpuscular Hemoglobin Concent 34, Red Cell Distribution Width 17.2H, Platelet Count 261, Mean Platelet Volume 9.0, Immature Granulocyte % (Auto) 1, Neutrophils (%) (Auto) 85H, Lymphocytes (%) (Auto) 11L, Monocytes (%) (Auto) 4, Eosinophils (%) (Auto) 0, Basophils (%) (Auto) 0, Neutrophils # (Auto) 18.4H, Lymphocytes # (Auto) 2.3, Monocytes # (Auto) 0.8, Eosinophils # (Auto) 0.0, Basophils # (Auto) 0.0, Immature Granulocyte # (Auto) 0.2H, Sodium Level 143, Potassium Level 4.3, Chloride Level 116H, Carbon Dioxide Level 18L, Anion Gap 9, Blood Urea Nitrogen 43H, Creatinine 1.54H, Estimat Glomerular Filtration Rate 33, BUN/Creatinine Ratio 28, Glucose Level 101, Calcium Level 7.4L, Corrected Calcium 8.7, Phosphorus Level 4.0, Magnesium Level 2.4, Total Bilirubin 0.7, Aspartate Amino Transf (AST/SGOT) 34, Alanine Aminotransferase (ALT/SGPT) 31, Alkaline Phosphatase 63, Total Protein 4.7L, Albumin 2.4L Microbiology 10/01/21 MRSA Screen - Final, Complete MRSA not isolated 10/01/21 Urine Culture - Preliminary, Resulted Escherichia coli Assessment/Plan Assessment/Plan Assessment/Plan fall gi bleed likely upper history of ulcers, severe anemia being transfused. diffuse abdominal pain, could be ischemic bowel due to low flow hold any anticoagulation follow labs and transfuse as needed. patient with diffuse abdominal pain yesterday could be ischemic from low flow state. Today no abdominal pain with deep palpation but I feel patient is deteriorating overall condition. Her hemoglobin is stable at this time we will continue to monitor. If continues to drop and stable enough for EGD would do so otherwise if hemoglobin remains stable would not do EGD Likely poor prognosis, Protonix Clinical Quality Measures DVT/VTE Risk/Contraindication: Contraindications-Pharm: Other *list below* Other: LEILA Mark DO Oct 02, 2021 11:07
--- NOTE | 2021-10-02 11:51 | Progress Note - Cardiology ---
Cardiology SOAP Progress Note Subjective: Unresponsive Objective: I&O/Vital Signs 10/01/21 10/02/21 10/02/21 10/02/21 23:59 00:00 01:00 01:00 Pulse 80 81 81 Resp 15 25 B/P (MAP) 140/58 137/61 Pulse Ox 98 99 99 O2 Delivery Room Air Room Air Room Air 10/02/21 10/02/21 10/02/21 10/02/21 02:00 03:00 04:00 04:00 Pulse 72 75 82 Resp 18 11 22 B/P (MAP) 122/54 135/51 159/76 Pulse Ox 97 98 100 99 O2 Delivery Room Air Room Air Room Air Room Air 10/02/21 10/02/21 10/02/21 10/02/21 04:00 05:00 06:00 07:00 Temp 36.5 Pulse 71 80 67 Resp 16 19 B/P (MAP) 112/47 152/61 Pulse Ox 94 99 O2 Delivery Room Air Room Air 10/02/21 10/02/21 10/02/21 10/02/21 07:00 07:54 08:00 08:00 Temp 36.4 Pulse 67 76 Resp 16 22 B/P (MAP) 114/46 115/50 Pulse Ox 95 99 97 O2 Delivery Room Air Room Air Room Air 10/02/21 10/02/21 10/02/21 10/02/21 09:00 10:00 11:00 11:29 Temp 36.8 Pulse 62 69 61 Resp 15 15 15 B/P (MAP) 118/44 148/60 121/56 Pulse Ox 93 97 97 O2 Delivery Room Air Room Air Room Air 10/02/21 00:00 Intake Total 0 ml Output Total 495 ml Balance -495 ml Weight (Pounds): 121 Weight (Ounces): 0.0 Weight (Calculated Kilograms): 54.847925 Constitutional: other (unresponsive; moves right arm and thrashes in the bed when touched; thin, frail) Respiratory: No accessory muscle use, No respiratory distress; chest expansion is symmetric, chest is bilaterally symmetric, other (fair air entry) Cardiovascular: regular rate-rhythm; No JVD; S1 and S2, systolic murmur Gastrointestional: soft Extremities: no lower extremity edema bilateral Neurologic/Psychiatric: other (see above) Skin: cool Results/Procedures: Labs Laboratory Tests 10/01/21 13:45: Hemoglobin 6.8#*L, Hematocrit 21L, Lactic Acid Level 7.02*H 10/01/21 18:54: Hemoglobin 8.6#L, Hematocrit 25L, Sodium Level 142, Potassium Level 5.0, Chlorid e Level 111H, Carbon Dioxide Level 20L, Anion Gap 11, Blood Urea Nitrogen 50H, Creatinine 1.65H, Estimat Glomerular Filtration Rate 30, BUN/Creatinine Ratio 30, Glucose Level 137H, Calcium Level 7.5L 10/02/21 04:00: Procalcitonin 1.49H 10/02/21 04:15: Hemoglobin 8.4L, Hematocrit 25L, Sodium Level 143, Potassium Level 4.3, Chloride Level 116H, Carbon Dioxide Level 18L, Anion Gap 9, Blood Urea Nitrogen 43H, Creatinine 1.54H, Estimat Glomerular Filtration Rate 33, BUN/Creatinine Ratio 28, Glucose Level 101, Calcium Level 7.4L, White Blood Count 21.7H, Red Blood Count 2.81L, Mean Corpuscular Volume 89, Mean Corpuscular Hemoglobin 30, Mean Corpuscular Hemoglobin Concent 34, Red Cell Distribution Width 17.2H, Platelet Count 261, Mean Platelet Volume 9.0, Immature Granulocyte % (Auto) 1, Neutrophils (%) (Auto) 85H, Lymphocytes (%) (Auto) 11L, Monocytes (%) (Auto) 4, Eosinophils (%) (Auto) 0, Basophils (%) (Auto) 0, Neutrophils # (Auto) 18.4H, Lymphocytes # (Auto) 2.3, Monocytes # (Auto) 0.8, Eosinophils # (Auto) 0.0, Basophils # (Auto) 0.0, Immature Granulocyte # (Auto) 0.2H, Corrected Calcium 8.7, Phosphorus Level 4.0, Magnesium Level 2.4, Total Bilirubin 0.7, Aspartate Amino Transf (AST/SGOT) 34, Alanine Aminotransferase (ALT/SGPT) 31, Alkaline Phosphatase 63, Total Protein 4.7L, Albumin 2.4L Microbiology 10/01/21 MRSA Screen - Final, Complete MRSA not isolated 10/01/21 Urine Culture - Preliminary, Resulted Escherichia coli Laboratory Tests 10/01/21 07:39 10/01/21 13:45 10/01/21 18:54 10/02/21 04:15 A/P: Assessment: Elevated troponin - likely Type 2 [place] secondary to profound anemia and hypotension Anemia - H/H 4.06/03 - management per medical services - receiving transfusions - not suitable for antiplatelet therapy UTI with sepsis - management per medical services AMS Renal insufficiency - likely d/t vol depletion Hyperkalemia - likely d/t vol depletion 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 [facility] - does not recall the details, reports a h/o coronary stenting by Dr Manzano who retired more than 5 years ago Plan: Elevated troponin - likely Type 2 [place] secondary to sepsis and hypotension - management per medical services - not suitable for ASA because of profound anemia that is suspected to be due to occult, ongoing blood loss that is being managed by Dr Blackwell Sepsis - management per medical services - receiving IVF Renal insufficiency - likely d/t vol depletion Hyperkalemia - likely secondary to vol depletion Gross anemia - undetermined etiology - management per medical services AMS - management per medical services Monitor lab - replace electrolytes as indicated Poor prognosis DNR status Further recs will be based on her hospital course OLEG SOW MD FACP FAC CCDS Oct 02, 2021 11:51
[2021-10-02] MEDS: morphine INJ 4 MG/ML 1 ML (VIAL/SYRINGE) IV PRN (13:10)
[2021-10-02 14:10] VITALS: BP 152/66
--- NOTE | 2021-10-02 15:40 | Tele-ICU Progress Note ---
Subjective Date Seen by a Provider: Oct 02, 2021 Time Seen by a Provider: 10:03 Subjective/Events-last exam (Tele-ICU Physician , Progress Note ) Available chart/ vitals / labs / Images reviewed Video assessment done using teleICU camera, rest of exam as per RN Discussed with RN , EXAM PER RN Events overnight : Afebrile FiO2 - ra I/O = pos 500 Drips: Pressors: , hemodynamically stable Consultants: kofi clay Hospital course: (10/01) 86 y/o female admitted in ED with AMS/Hypotension Acute GI bleed/ Anemia/dehydration/NSTEMI/Lactic acidosis. HGB 4.2- 2 units transfusion 10/02 A/P Shock ( hemorrhagic . 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 Discussed with RN to reach out if any questions or concerns A total of 35 minutes of critical care time was devoted to this patient today, required to treat and/or prevent further deterioration of critical care condition ( as above ) . Sepsis Event Evaluation Height, Weight, BMI Height: 5'2.00" Weight: 121lbs. 0.0oz. 54.833555qw; 16.61 BMI Method: Focused Exam Lactate Level 10/01/21 09:00: Lactic Acid Level 7.95*H 10/01/21 11:15: Lactic Acid Level 9.09*H 10/01/21 13:45: Lactic Acid Level 7.02*H Exam Exam Patient acknowledged, consented, and participated in this virtual visit which was conducted using real time audio/video Vital Signs Date Time Temp Pulse Resp B/P (MAP) Pulse Ox O2 Delivery O2 Flow Rate FiO2 10/02/21 15:22 36.7 76 20 127/68 98 Room Air 10/02/21 13:00 79 15 142/69 98 Room Air 10/02/21 12:35 68 10/02/21 12:00 84 32 142/69 99 Room Air 10/02/21 11:29 36.8 10/02/21 11:00 61 15 121/56 97 Room Air 10/02/21 10:00 69 15 148/60 97 Room Air 10/02/21 09:00 62 15 118/44 93 Room Air 10/02/21 08:00 76 22 115/50 97 Room Air 10/02/21 08:00 99 Room Air 10/02/21 07:54 36.4 10/02/21 07:00 67 16 114/46 95 Room Air 10/02/21 07:00 67 10/02/21 06:00 80 19 152/61 99 Room Air 10/02/21 05:00 71 16 112/47 94 Room Air 10/02/21 04:00 36.5 10/02/21 04:00 99 Room Air 10/02/21 04:00 82 22 159/76 100 Room Air 10/02/21 03:00 75 11 135/51 98 Room Air 10/02/21 02:00 72 18 122/54 97 Room Air 10/02/21 01:00 81 25 137/61 99 Room Air 10/02/21 01:00 81 10/02/21 00:00 80 15 140/58 99 Room Air 10/01/21 23:59 98 Room Air 10/01/21 23:47 37.5 10/01/21 23:00 75 13 163/76 99 Room Air 10/01/21 22:00 81 14 142/57 99 Room Air 10/01/21 21:00 81 13 135/57 99 Room Air 10/01/21 20:00 36.9 10/01/21 20:00 84 16 151/63 98 Room Air 10/01/21 20:00 98 Room Air 10/01/21 19:00 87 33 140/67 96 Room Air 10/01/21 19:00 87 10/01/21 18:00 83 29 121/49 99 Room Air 10/01/21 17:00 86 21 139/57 96 Room Air 10/01/21 16:15 36.9 84 19 183/84 100 Room Air 10/01/21 16:00 87 26 153/84 Room Air 10/01/21 16:00 100 Room Air 10/01/21 15:47 36.9 I & O 10/02/21 07:00 Intake Total 1050 ml Output Total 720 ml Balance 330 ml Height & Weight Height: 5'2.00" Weight: 121lbs. 0.0oz. 54.189279wy; 16.61 BMI Method: General Appearance: Chronically ill, Thin, Other (pale, lethargic, confused, non-verbal) HEENT: PERRL/EOMI; No Moist Mucous Membranes (dry mucous membranes) Neck: Full Range of Motion Respiratory: Chest Non Tender, No Accessory Muscle Use, No Respiratory Distress Cardiovascular: No JVD, Tachycardia Capillary Refill: Less Than 3 Seconds Peripheral Pulses: 2+ Carotid (R) Gastrointestinal: non tender (Does not wake to deep palpation), soft Extremity: Normal Range of Motion, No Pedal Edema, Slow Capillary Refill Neurologic/Psychiatric: No Alert, No Oriented x3; Other (lathargic) Skin: Cool, Mottled, Pallor, Other (Skin abrasions to forehead and areas on extremities) Results Lab Laboratory Tests 10/01/21 07:39 10/01/21 13:45 10/01/21 18:54 10/02/21 04:15 Assessment/Plan Assessment/Plan LELE Drake MD Oct 02, 2021 15:40
[2021-10-02 19:22] VITALS: BP 134/59
[2021-10-02 23:32] VITALS: BP 171/70
[2021-10-02 23:45] VITALS: BP 169/71
[2021-10-03] MEDS: NS IV 1000 ML 1,000 ML IV SCH ×2 (01:59→15:21)
[2021-10-03 04:45] VITALS: BP 126/59
[2021-10-03 05:02] LABS: BASOPHILS % (AUTO) 0 % (0-10); EOSINOPHILS % (AUTO) 0 % (0-10); HEMATOCRIT 24 % (35-52); HEMOGLOBIN 7.9 g/dL (11.5-16.0); LYMPHOCYTES # (AUTO) 1.8 10^3/uL (1.0-4.0); LYMPHOCYTES % (AUTO) 11 % (12-44); MEAN CORPUSCULAR HEMOGLOBIN 30 pg (25-34); MEAN CORPUSCULAR HGB CONC 33 g/dL (32-36); MEAN CORPUSCULAR VOLUME 92 fL (80-99); MEAN PLATELET VOLUME 9.2 fL (9.0-12.2); MONOCYTES # (AUTO) 0.7 10^3/uL (0.0-1.0); MONOCYTES % (AUTO) 5 % (0-12); NEUTROPHILS # (AUTO) 13.5 10^3/uL (1.8-7.8); NEUTROPHILS % (AUTO) 83 % (42-75); PLATELET COUNT 203 10^3/uL (130-400); WHITE BLOOD COUNT 16.3 10^3/uL (4.3-11.0)
[2021-10-03 05:09] LABS: ALBUMIN 2.1 GM/DL (3.2-4.5)
[2021-10-03 05:10] LABS: CALCIUM 7.4 MG/DL (8.5-10.1)
[2021-10-03 05:11] LABS: TOTAL PROTEIN 4.3 GM/DL (6.4-8.2)
[2021-10-03 05:13] LABS: BILIRUBIN,TOTAL 0.7 MG/DL (0.1-1.0)
[2021-10-03 05:15] LABS: CREATININE SERUM 1.13 MG/DL (0.60-1.30)
--- NOTE | 2021-10-03 05:43 | Progress Note - Hospitalist ---
Subjective HPI/CC On Admission Date Seen by Provider: Oct 03, 2021 Time Seen by Provider: 11:00 CC: GI Bleed with Hypotension HPI: This is a pt of [facility]. Pt presented from [place] [facility] with severe GI bleed with coffee ground emesis and lower GI bleed. Her hemoglobin was 4.2. She was hypotensive, improved with IV fluids. She remains a DNR. She lives at home with her who has taken care of her since the stroke. Upon assessment she appeared to be very frail, very declined, and very altered. I did have a long conversation with and daughter and multiple questions answered. We will try to provide blood transfusion and support, but she could very well pass away. PICC line will be placed. Dr. Gallardo and Dr. Newell both consulted for GI bleed and elevated troponin respectively. Subjective/Events-last exam Pt is up in a chair Speech therapy will evaluate the swallowing capabilities Potassium is 3.0 Gave 40 MEq IV Pt appears to be very very end stage Family in denial Review of Systems General: Fatigue, Malaise Neurological: Confusion Focused Exam Lactate Level 10/01/21 09:00: Lactic Acid Level 7.95*H 10/01/21 11:15: Lactic Acid Level 9.09*H 10/01/21 13:45: Lactic Acid Level 7.02*H Objective Exam Vital Signs Vital Signs Date Time Temp Pulse Resp B/P (MAP) Pulse Ox O2 Delivery O2 Flow Rate FiO2 10/04/21 03:50 37.0 66 20 146/64 (91) 95 Room Air Capillary Refill : Less Than 3 Seconds General Appearance: No Apparent Distress, WD/WN, Chronically ill, Cachetic, Thin, Other (lethargic, mostly unresponsive) Respiratory: No Accessory Muscle Use, No Respiratory Distress, Decreased Breath Sounds Cardiovascular: Regular Rate, Rhythm Results/Procedures Lab Patient resulted labs reviewed. Assessment/Plan Assessment and Plan Assess & Plan/Chief Complaint Assessment: Hypotension GIB Severe anemia Prior CVA Chronic debility AMBIKA Elevated troponin h/o HTN HLP Dysphagia Plan: ICU Transfuse Dr Gallardo consult Dr Newell consult DNR Very grave prognosis 10/02: Transfer to 4th floor Change full code to DNR at family request 10/03: ST eval swallowing PT OT Needs end of life care Diagnosis/Problems Diagnosis/Problems (1) Acute GI bleeding Status: Acute (2) Dehydration Status: Acute (3) Non-ST elevated myocardial infarction Status: Acute (4) Anemia due to GI blood loss Status: Acute (5) Elevated lactic acid level Status: Acute (6) Cerebrovascular accident (CVA) involving right cerebral hemisphere Clinical Quality Measures DVT/VTE Risk/Contraindication: Contraindications-Pharm: Other *list below* Other: HANS Han DO Oct 03, 2021 05:43
[2021-10-03] MEDS: POTASSIUM CL 10MEQ/50ML IVPB 50 ML IV SCH ×4 (06:31→09:46)
[2021-10-03 07:49] VITALS: BP 129/56
--- NOTE | 2021-10-03 09:02 | Progress Note - Cardiology ---
Cardiology SOAP Progress Note Objective: I&O/Vital Signs 10/03/21 10/04/21 10/04/21 10/04/21 23:35 01:00 03:50 07:00 Temp 37.4 37.0 Pulse 84 67 66 60 Resp 26 20 B/P (MAP) 165/72 (103) 146/64 (91) Pulse Ox 96 95 O2 Delivery Room Air Room Air 10/04/21 10/04/21 07:20 08:53 Temp 36.7 Pulse 54 Resp 20 B/P (MAP) 156/67 (96) Pulse Ox 94 O2 Delivery Room Air Room Air 10/03/21 23:59 Intake Total 0 ml Output Total 1350 ml Balance -1350 ml Weight (Pounds): 121 Weight (Ounces): 0.0 Weight (Calculated Kilograms): 54.657159 Constitutional: other (unresponsive; moves right arm and thrashes in the bed when touched; thin, frail) Respiratory: No accessory muscle use, No respiratory distress; chest expansion is symmetric, chest is bilaterally symmetric, other (fair air entry) Cardiovascular: regular rate-rhythm; No JVD; S1 and S2, systolic murmur Gastrointestional: soft Extremities: no lower extremity edema bilateral Neurologic/Psychiatric: other (see above) Skin: cool Results/Procedures: Labs Laboratory Tests 10/03/21 11:15: Glucometer 78 10/03/21 17:07: Glucometer 69L 10/03/21 23:30: Glucometer 103 10/04/21 06:06: Glucometer 130H 10/04/21 06:09: White Blood Count 10.5, Red Blood Count 2.64L, Hemoglobin 7.8L, Hematocrit 24L, Mean Corpuscular Volume 92, Mean Corpuscular Hemoglobin 30, Mean Corpuscular Hemoglobin Concent 32, Red Cell Distribution Width 17.7H, Platelet Count 164, Mean Platelet Volume 9.4, Immature Granulocyte % (Auto) 1, Neutrophils (%) (Auto) 76H, Lymphocytes (%) (Auto) 15, Monocytes (%) (Auto) 6, Eosinophils (%) (Auto) 2, Basophils (%) (Auto) 0, Neutrophils # (Auto) 8.0H, Lymphocytes # (Auto) 1.5, Monocytes # (Auto) 0.7, Eosinophils # (Auto) 0.2, Basophils # (Auto) 0.0, Immature Granulocyte # (Auto) 0.2H, Sodium Level 142, Potassium Level 3.3L, Chloride Level 113H, Carbon Dioxide Level 21, Anion Gap 8, Blood Urea Nitrogen 16, Creatinine 0.99, Estimat Glomerular Filtration Rate 56, BUN/Creatinine Ratio 16, Glucose Level 130H, Calcium Level 7.3L, Corrected Calcium 8.8, Magnesium Level 1.7, Total Bilirubin 0.6, Aspartate Amino Transf (AST/SGOT) 36H, Alanine Aminotransferase (ALT/SGPT) 31, Alkaline Phosphatase 63, Total Protein 4.2L, Albumin 2.1L Microbiology 10/01/21 Blood Culture - Preliminary, Resulted No growth 10/01/21 MRSA Screen - Final, Complete MRSA not isolated 10/01/21 Urine Culture - Final, Complete Escherichia coli A/P: Assessment: Elevated troponin - likely Type 2 [place] secondary to profound anemia and hypotension Anemia - H/H - management per medical services - received transfusions (2 units PRBC) - H/H trending down - not suitable for antiplatelet therapy UTI with sepsis - management per medical services AMS Renal insufficiency - likely d/t vol depletion Hyperkalemia - likely d/t vol depletion 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 [facility] - does not recall the details, reports a h/o coronary stenting by Dr Manzano who retired more than 5 years ago Plan: Elevated troponin - likely Type 2 [place] secondary to sepsis and hypotension - not suitable for ASA because of profound anemia that is suspected to be due to occult, ongoing blood loss that is being managed by Dr Blackwell Sepsis - management per medical services Renal insufficiency - likely d/t vol depletion - improved with IVF hydration Hyperkalemia - now hypokalemic - replace Gross anemia - undetermined etiology - management per medical services - H/H is trending down following transfusion of 2 units PRBC AMS - management per medical services Monitor lab - replace electrolytes as indicated Poor prognosis DAGOBERTO RIVERS Oct 03, 2021 09:02
--- NOTE | 2021-10-03 09:35 | Progress Note - Cardiology ---
Cardiology SOAP Progress Note Subjective: Does not report any symptoms Objective: I&O/Vital Signs 10/02/21 10/02/21 10/02/21 10/03/21 21:54 23:32 23:45 04:45 Temp 37.4 37.0 Pulse 71 72 67 Resp 16 20 B/P (MAP) 171/70 (103) 169/71 (103) 126/59 (81) Pulse Ox 98 97 97 O2 Delivery Room Air Room Air Room Air 10/03/21 07:49 Temp 37.2 Pulse 77 Resp 16 B/P (MAP) 129/56 (80) Pulse Ox 97 O2 Delivery Room Air 10/02/21 23:59 Intake Total 0 ml Output Total 900 ml Balance -900 ml Weight (Pounds): 121 Weight (Ounces): 0.0 Weight (Calculated Kilograms): [id number] Constitutional: other (Thin, frail, moaning, in chair, unable to respond to questions) Respiratory: No accessory muscle use, No respiratory distress; chest expansion is symmetric, chest is bilaterally symmetric, other (fair air entry) Cardiovascular: regular rate-rhythm; No JVD; S1 and S2, systolic murmur Gastrointestional: soft Extremities: no lower extremity edema bilateral Neurologic/Psychiatric: other (see above) Skin: cool Results/Procedures: Labs Laboratory Tests 10/02/21 17:42: Glucometer 74 10/03/21 02:00: Glucometer 70 10/03/21 05:00: White Blood Count 16.3H, Red Blood Count 2.60L, Hemoglobin 7.9L, Hematocrit 24L, Mean Corpuscular Volume 92, Mean Corpuscular Hemoglobin 30, Mean Corpuscular Hemoglobin Concent 33, Red Cell Distribution Width 18.0H, Platelet Count 203, Mean Platelet Volume 9.2, Immature Granulocyte % (Auto) 2, Neutrophils (%) (Auto) 83H, Lymphocytes (%) (Auto) 11L, Monocytes (%) (Auto) 5, Eosinophils (%) (Auto) 0, Basophils (%) (Auto) 0, Neutrophils # (Auto) 13.5H, Lymphocytes # (Auto) 1.8, Monocytes # (Auto) 0.7, Eosinophils # (Auto) 0.0, Basophils # (Auto) 0.0, Immature Granulocyte # (Auto) 0.3H, Sodium Level 145, Potassium Level 3.0L, Chloride Level 115H, Carbon Dioxide Level 20L, Anion Gap 10, Blood Urea Nitrogen 26H, Creatinine 1.13, Estimat Glomerular Filtration Rate 48, BUN/Creatinine Ratio 23, Glucose Level 72, Calcium Level 7.4L, Corrected Calcium 8.9, Magnesium Level 2.0, Total Bilirubin 0.7, Aspartate Amino Transf (AST/SGOT) 34, Alanine Aminotransferase (ALT/SGPT) 28, Alkaline Phosphatase 63, Total Protein 4.3L, Albumin 2.1L Microbiology 10/01/21 Blood Culture - Preliminary, Resulted No growth 10/01/21 MRSA Screen - Final, Complete MRSA not isolated 10/01/21 Urine Culture - Preliminary, Resulted Escherichia coli Laboratory Tests 10/01/21 13:45 10/01/21 18:54 10/02/21 04:15 10/03/21 05:00 A/P: Assessment: Elevated troponin - likely Type 2 [place] secondary to profound anemia and hypotension Anemia - H/H - management per medical services - received transfusions (2 units PRBC) - H/H trending down - not suitable for antiplatelet therapy UTI with sepsis - management per medical services AMS Renal insufficiency - likely d/t vol depletion Hyperkalemia - likely d/t vol depletion 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[facility] records - ischemic R CVA for which she was transferred to [facility] and then back to [facility] IRF in 2017 Spouse reports previously 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 [facility] - does not recall the details, reports a h/o coronary stenting by Dr Manzano who retired more than 5 years ago Plan: Elevated troponin - likely Type 2 [place] secondary to sepsis and hypotension - not suitable for ASA because of profound anemia that is suspected to be due to occult, ongoing blood loss that is being managed by Dr Blackwell Sepsis - management per medical services Renal insufficiency - likely d/t vol depletion - improved with IVF hydration Hyperkalemia - now hypokalemic - replace Gross anemia - undetermined etiology - management per medical services - H/H is trending down following transfusion of 2 units PRBC AMS - management per medical services Monitor lab - replace electrolytes as indicated I discussed her CV issues with her family and answered questions OLEG SOW MD FACP [facility] CCDS Oct 03, 2021 09:35
--- NOTE | 2021-10-03 10:12 | Physical Therapy Daily Note ---
PT Daily Note-Current Subjective Patient is in bed with bed alarm activated and family present. Family requests that patient be up in recliner and walk. PT explained that if patient was able to actively perform tasks safely this could happen. Mental Status Patient Orientation: Eyes Open, Mumbles (yells) Transfers SCALE: Activities may be completed with or without assistive devices. 5-Mmjvzxqkcj-ennacob completes the activity by him/herself with no assistance from a helper. 5-Set-up or Clean-up Assistance-helper sets up or cleans up; patient completes activity. [place] assists only prior to or following the activity. 4-Supervision or Touching Assistance-helper provides verbal cues and/or touching/steadying and/or contact guard assistance as patient completes activity. Assistance may be provided throughout the activity or intermittently. 3-Partial/Moderate Assistance-helper does LESS THAN HALF the effort. [place] lifts, holds or supports trunk or limbs, but provides less than half the effort. 2-Substantial/Maximal Assistance-helper does MORE THAN HALF the effort. [place] lifts or holds trunk or limbs and provides more than half the effort. 8-Bsahdechw-vlbfwr does ALL the effort. Patient does none of the effort to complete the activity. Or, the assistance of 2 or more helpers is required for the patient to complete the activity. If activity was not attempted, code reason: 7-Patient Refused. 9-Not Applicable-not attempted and the patient did not perform the activity before the current illness, exacerbation or injury. 10-Not Attempted due to Environmental Limitations-(lack of equipment, weather restraints, etc.). 88-Not Attempted due to Medical Conditions or Safety Concerns. Lying to Sitting/Side of Bed(Q: 1 (Patient retropulsive initially then able to maintain sitting EOB with min assist) Sit to Stand (QC): 2 (x 3 sets) Chair/Vaz-cs-Zyvtn Xfer(QC): 2 (Patient able to take 2 steps to sit in recliner with PT giving verbal and tactile direction with use of gait belt) Exercises Supine Ex: Heel Slides, Straight leg raise Supine Reps: 12 (PROM) Assessment Patient incontinent BM requiring dependent assist to cleanse. Family remained in room during session. Chair alarm placed in recliner and activated after patient attained sitting. Family reports they will not be leaving patient's side after this PT voiced safety concerns. Patient continues to yell and moan. Family reports this is her normal behavior. PT Jail Goals Jail Goals PT Manager Entry Goals Time Frame: Oct 09, 2021 Roll Left & Right (QC): 2 Sit to Lying (QC): 2 Lying-Sitting on Side/Bed(QC): 2 Sit to Stand (QC): 2 Chair/Vjb-je-Rplge Xfer(QC): 2 PT Plan Treatment/Plan Treatment Plan: Continue Plan of Care Treatment Plan: Bed Mobility, Education, Functional Activity Kareen, Functional Strength, Gait, Safety, Therapeutic Exercise, Transfers Treatment Duration: Oct 09, 2021 Frequency: 6 times per week Estimated Hrs Per Day: .25 hour per day Patient and/or Family Agrees t: Yes Time/GCodes Time In: 824 Time Out: 847 Total Billed Treatment Time: 23 Total Billed Treatment 1 visit FA x 2 23 min SEFERINO YAÑEZ PT Oct 03, 2021 10:12
[2021-10-03] MEDS: cefTRIAXone 1 GM PRE-MIX 50 ML IV SCH (10:50)
[2021-10-03] MEDS: PANTOPRAZOLE 40 MG (PROTONIX) VIAL IV SCH ×2 (10:51→20:01)
[2021-10-03 11:23] VITALS: BP 149/66
--- NOTE | 2021-10-03 13:22 | ST Dysphagia Evaluation ---
Speech Evaluation-General Medical Diagnosis GI Bleed Onset Date: Oct 01, 2021 Therapy Diagnosis Therapy Diagnosis: Oropharyngeal Dysphagia Precautions Precautions: Fall, Aspiration Precautions/Isolations: Aspiration, Fall Prevention, Standard Precautions Referral Referring Physician: Dr. Blackwell Reason for Referral: Evaluation/Treatment Medical History Pertinent Medical History: Arthritis, Dementia Current History The patient is an 86 year-old female with a past medical history of HTN and stroke, who presented to [facility] with severe GI bleed. Reviewed History: Yes Social History Current Living Status: Spouse Speech PLF/Current-Dysphagia Prior Level of Function The patient is unable to provide prior level of function information due to current level of declined cognition Multiple family members were present at bedside, each provided information from the patient's past medical history. Per , she consumes a regular consistency diet with thin liquids at home (specifically, [employer] hamburgers and orange juice via straw). The family members denied s/s of suspected aspiration, however, throughout the evaluation two individuals stated, "Does that loud cough mean something went in her airway. She does that sometimes. She did that earlier when I gave her something." Subjective The patient was lying in recliner, eyes opened upon entrance to her room by the clinician. The patient has multiple family members present. The clinician and the patient's RN transferred the patient to the bed with maximum assistance and no aide from the patient. The patient remains with her eyes opened, however, does not verbally communicate. The patient provides loud moans throughout the session. The patient is seated upright in bed for the evaluation. The patient's daughter stated she "coughed liked that when she was seated upright in the chair and I gave her something earlier but when she was laid down, she didn't do that and I could tell she swallowed." The clinician highly advised against feeding the patient in a reclined position, stating she could not recommend P.O. intake of any kind if the patient was not seated upright. Cognitive Status Patient Orientation: Unresponsive Oral Motor Skills Dentition: Natural Ability to Follow Directions: Unable Oral Expression Ability: Severe Impairment Face Facial symmetry and completion of an oral mechanism evaluation was unable to be completed as the patient does not follow directions regardless of maximum cueing and direct modeling. Oral-Facial Assessment Oral-Facial Dentition: Normal Labial Seal Description: Weak Volitional Dry Swallow: No Voluntary Cough: No Can Clear Throat Volitionally: No Productive Cough: No Productive Throat Clear: No Dysphagia Evaluation Consistencies Presented: Thin Liquid, Pureed Oral Phase: Absent Oral Transit The patient did not remove thin liquid bolus for teaspoon, tilting head upwards and tipping the contents into the oral cavity. The patient bit and the straw and bit down on the straw, unable to draw material through the item. Initially, the patient bit at the teaspoon with applesauce. With continued verbal prompting, the patient removed the bolus material with poor coordination. Following, oral holding was displayed with delayed posterior oral transfer. The patient required maximum verbal encouragement to remain alert throughout the evaluation. The patient demonstrated an immediate cough with presentations of thin liquid material. Following a delayed pharyngeal swallow onset, no s/s of suspected aspiration were demonstrated with half teaspoons of applesauce. Oral trials were ended due to poor patient alertness and participation. As the patient's oral holding increased with additional P.O. trials and returned to an eyes closed position, the patient's aspiration risks due to decreased alertness increased. Dietary Recommendations: NPO Liquid Recommendations: NPO Recommendations: - NPO. - Frequent and excellent oral care to reduce the transfer of oral bacteria to the lungs should aspiration of secretions occur. - Speech pathology to re-assess the patient's oropharyngeal swallow function as able and appropriate. The recommendations and results were discussed extensively with multiple family members. Additionally, the recommendations were provided to the patient's RN. The clinician highly recommended against placing P.O. items into the patient's oral cavity. The family's compliance with this recommendation may be monitored. Dysphagia Evaluation Summary The patient displays oropharyngeal dysphagia characterized by poor lingual and l abial coordination and strength, as well as, a delayed pharyngeal swallow and poor airway protection in the presence of bolus material. The patient's oropharyngeal swallow function is overall negatively impacted by the patient's cognition, alertness, and participation. The clinician discussed the patient's current oropharyngeal swallow status with the patient's family. The patient's family continued to want to aide the clinician throughout the evaluation, with the patient's propping the patient's head up at one portion, holding her chin in a neutral position and introducing (pouring) thin liquid from cup edge. Excessive anterior spillage occurred, as well as, an immediate rigorous cough. The clinician politely requested the patient's not attempt P.O. bolus trials due to patient safety. The patient's family wanted to know "what's next" and how to provide nutrition, hydration, and medication. Per patient's daughter, "If I hear a stomach tube I'm going to lose it." The clinician stated the decision regarding nutrition would be deferred to the patient's physician, however, the clinician cannot safely recommend P.O. consistencies at this time. The patient stated progress may occur but cannot be guaranteed. Speech Short Term Goals Short Term Goals Short Term Goals 1. The patient will participate in P.O. trials of the least restrictive diet consistency without s/s of suspected aspiration. Time Frame-STG: Four Days. Speech Market Research Interviewer Goals Shelter Goals 1. The patient will tolerate the least restrictive diet consistency without s/s of suspected aspiration. Time Frame: One week. Speech-Plan Treatment Plan Speech Therapy Treatment Plan: Continue Plan of Care Treatment Duration: Oct 10, 2021 Frequency: 3 times per week (Three to five times per week.) Estimated Hrs Per Day: .25 hour per day Rehab Potential: Poor Pt/Family Agrees to Plan: Yes Safety Risks/Education Teaching Recipient: Patient, Family, Significant Other Teaching Methods: Discussion Response to Teaching: Reinforcement Needed Education Topics Provided: The patient has multiple family members present at bedside. Due to the patient's current declined cognition, she is unable to participation and comprehend recommendations provided. The clinician reviewed recommendations, plan of care, and anatomy and physiology of the oropharyngeal swallow function. Time Speech Therapy Time In: 12:35 Speech Therapy Time Out: 13:15 Total Billed Time: 40 Billed Treatment Time 1, HOLLY HDEZ [facility] Oct 03, 2021 13:22
--- NOTE | 2021-10-03 15:03 | Progress Note - Surgery ---
Subjective Date Seen by a Provider: Oct 03, 2021 Time Seen by a Provider: 14:58 Subjective/Events-last exam Patient more awake today. Makes some grunting noises. Does not communicate anything though. Does not seem to have any abdominal pain on exam. Family at bedside. Patient failed swallow eval. Hemoglobin 7.9. White blood cell count decreasing Focused Exam Lactate Level 10/01/21 09:00: Lactic Acid Level 7.95*H 10/01/21 11:15: Lactic Acid Level 9.09*H 10/01/21 13:45: Lactic Acid Level 7.02*H Objective Exam Vital Signs Date Time Temp Pulse Resp B/P (MAP) Pulse Ox O2 Delivery O2 Flow Rate FiO2 10/03/21 13:00 84 10/03/21 11:23 36.5 73 18 149/66 (93) 98 Room Air 10/03/21 10:55 67 10/03/21 09:00 Room Air 10/03/21 07:49 37.2 77 16 129/56 (80) 97 Room Air 10/03/21 04:45 37.0 67 20 126/59 (81) 97 Room Air 10/02/21 23:45 72 169/71 (103) 10/02/21 23:32 37.4 71 16 171/70 (103) 97 Room Air 10/02/21 21:54 98 Room Air 10/02/21 19:22 37.0 82 18 134/59 (84) 98 Room Air 10/02/21 15:22 36.7 76 20 127/68 98 Room Air I & O 10/03/21 06:59 Intake Total 1000 ml Output Total 2050 ml Balance -1050 ml Capillary Refill : Less Than 3 Seconds General Appearance: No Apparent Distress, Chronically ill, Thin HEENT: PERRL/EOMI; No Moist Mucous Membranes (dry mucous membranes) Neck: Full Range of Motion, Non Tender Respiratory: Chest Non Tender, No Accessory Muscle Use, No Respiratory Distress, Decreased Breath Sounds Cardiovascular: Regular Rate, Rhythm, No JVD Peripheral Pulses: 2+ Carotid (R) Gastrointestinal: non tender, soft Extremity: Normal Range of Motion, No Pedal Edema, Slow Capillary Refill Neurologic/Psychiatric: Alert, Disoriented, Other (Make some incomprehensible sounds) Skin: Cool, Mottled, Pallor, Other (Skin abrasions to forehead and areas on extremities) Lymphatic: No Adenopathy Results Lab Laboratory Tests 10/02/21 17:42: Glucometer 74 10/03/21 02:00: Glucometer 70 10/03/21 05:00: White Blood Count 16.3H, Red Blood Count 2.60L, Hemoglobin 7.9L, Hematocrit 24L, Mean Corpuscular Volume 92, Mean Corpuscular Hemoglobin 30, Mean Corpuscular Hemoglobin Concent 33, Red Cell Distribution Width 18.0H, Platelet Count 203, Mean Platelet Volume 9.2, Immature Granulocyte % (Auto) 2, Neutrophils (%) (Auto) 83H, Lymphocytes (%) (Auto) 11L, Monocytes (%) (Auto) 5, Eosinophils (%) (Auto) 0, Basophils (%) (Auto) 0, Neutrophils # (Auto) 13.5H, Lymphocytes # (Auto) 1.8, Monocytes # (Auto) 0.7, Eosinophils # (Auto) 0.0, Basophils # (Auto) 0.0, Immature Granulocyte # (Auto) 0.3H, Sodium Level 145, Potassium Level 3.0L, Chloride Level 115H, Carbon Dioxide Level 20L, Anion Gap 10, Blood Urea Nitrogen 26H, Creatinine 1.13, Estimat Glomerular Filtration Rate 48, BUN/Creatinine Ratio 23, Glucose Level 72, Calcium Level 7.4L, Corrected Calcium 8.9, Magnesium Level 2.0, Total Bilirubin 0.7, Aspartate Amino Transf (AST/SGOT) 34, Alanine Aminotransferase (ALT/SGPT) 28, Alkaline Phosphatase 63, Total Protein 4.3L, Albumin 2.1L 10/03/21 11:15: Glucometer 78 Microbiology 10/01/21 Blood Culture - Preliminary, Resulted No growth 10/01/21 MRSA Screen - Final, Complete MRSA not isolated 10/01/21 Urine Culture - Preliminary, Resulted Escherichia coli Assessment/Plan Assessment/Plan Assessment/Plan fall gi bleed likely upper history of ulcers, severe anemia being transfused. diffuse abdominal pain, could be ischemic bowel due to low flowresolved Failed swallow eval. hold any anticoagulation follow labs and transfuse as needed. patient with diffuse abdominal painresolved no pain currently. Her hemoglobin is stable at this time we will continue to monitor. If continues to drop and stable enough for EGD would do so otherwise if hemoglobin remains stable would not do EGD Failed swallow eval working with speech therapy and family understand. They do not want any gastrostomy tubes or feeding tubes at this time. Protonix Clinical Quality Measures DVT/VTE Risk/Contraindication: Contraindications-Pharm: Other *list below* Other: LEILA Mark DO Oct 03, 2021 15:03
[2021-10-03] MEDS: LORazepam INJ 2 MG/ML (ATIVAN) VIAL IVP PRN (15:57)
[2021-10-03 16:00] VITALS: BP 163/70
[2021-10-03] MEDS ORDERED: DEXTROSE 50% 50 ML (IMS) SYR ONE (17:21)
[2021-10-03] MEDS ORDERED: POTASSIUM CHLORIDE INJ 20 MEQ in D5 NS 1000 ML IV SOLUTION 1,000 ML IV SCH (19:00)
[2021-10-03 19:51] VITALS: BP 164/87
[2021-10-03] MEDS: D5 NS W/KCL 20 MEQ/L 1,000 ML IV SCH (20:01)
[2021-10-03 23:35] VITALS: BP 165/72
[2021-10-04 03:50] VITALS: BP 146/64
--- NOTE | 2021-10-04 06:16 | Progress Note - Hospitalist ---
Subjective HPI/CC On Admission Date Seen by Provider: Oct 04, 2021 Time Seen by Provider: 11:00 CC: GI Bleed with Hypotension HPI: This is a pt of [facility]. Pt presented from [facility] with severe GI bleed with coffee ground emesis and lower GI bleed. Her hemoglobin was 4.2. She was hypotensive, improved with IV fluids. She remains a DNR. She lives at home with her who has taken care of her since the stroke. Upon assessment she appeared to be very frail, very declined, and very altered. I did have a long conversation with and daughter and multiple questions answered. We will try to provide blood transfusion and support, but she could very well pass away. PICC line will be placed. Dr. Gallardo and Dr. Newell both consulted for GI bleed and elevated troponin respectively. Subjective/Events-last exam Speech therapy saw her They recommended a puree diet with thickened liquids Hospice talking to family Hemoglobin 7.8 Potassium 3.3 being replaced IV Pt appears to be very declined Review of Systems Neurological: Confusion Focused Exam Lactate Level Objective Exam Vital Signs Vital Signs Date Time Temp Pulse Resp B/P (MAP) Pulse Ox O2 Delivery O2 Flow Rate FiO2 10/04/21 17:00 36.7 75 18 151/98 (115) 96 Room Air Capillary Refill : Less Than 3 Seconds General Appearance: Chronically ill, Thin Respiratory: No Accessory Muscle Use, No Respiratory Distress, Decreased Breath Sounds Cardiovascular: Regular Rate, Rhythm Neurologic/Psychiatric: Alert, Disoriented Results/Procedures Lab Laboratory Tests 10/04/21 06:09 Patient resulted labs reviewed. Assessment/Plan Assessment and Plan Assess & Plan/Chief Complaint Assessment: Hypotension GIB Severe anemia Prior CVA Chronic debility AMBIKA Elevated troponin h/o HTN HLP Dysphagia Plan: ICU Transfuse Dr Gallardo consult Dr Newell consult DNR Very grave prognosis 10/02: Transfer to 4th floor Change full code to DNR at family request 10/03: ST eval swallowing PT OT Needs end of life care 10/04: Pureed diet Thickened liquids Needs end of life care Diagnosis/Problems Diagnosis/Problems (1) Acute GI bleeding Status: Acute (2) Dehydration Status: Acute (3) Non-ST elevated myocardial infarction Status: Acute (4) Anemia due to GI blood loss Status: Acute (5) Elevated lactic acid level Status: Acute (6) Cerebrovascular accident (CVA) involving right cerebral hemisphere Clinical Quality Measures DVT/VTE Risk/Contraindication: Contraindications-Pharm: Other *list below* Other: HANS Han DO Oct 04, 2021 06:16
[2021-10-04 06:19] LABS: BASOPHILS % (AUTO) 0 % (0-10); EOSINOPHILS # (AUTO) 0.2 10^3/uL (0.0-0.3); EOSINOPHILS % (AUTO) 2 % (0-10); HEMATOCRIT 24 % (35-52); HEMOGLOBIN 7.8 g/dL (11.5-16.0); LYMPHOCYTES # (AUTO) 1.5 10^3/uL (1.0-4.0); LYMPHOCYTES % (AUTO) 15 % (12-44); MEAN CORPUSCULAR HEMOGLOBIN 30 pg (25-34); MEAN CORPUSCULAR HGB CONC 32 g/dL (32-36); MEAN CORPUSCULAR VOLUME 92 fL (80-99); MEAN PLATELET VOLUME 9.4 fL (9.0-12.2); MONOCYTES # (AUTO) 0.7 10^3/uL (0.0-1.0); MONOCYTES % (AUTO) 6 % (0-12); NEUTROPHILS % (AUTO) 76 % (42-75); PLATELET COUNT 164 10^3/uL (130-400); WHITE BLOOD COUNT 10.5 10^3/uL (4.3-11.0)
[2021-10-04 06:27] LABS: ALBUMIN 2.1 GM/DL (3.2-4.5)
[2021-10-04 06:28] LABS: POTASSIUM 3.3 MMOL/L (3.6-5.0)
[2021-10-04 06:29] LABS: CALCIUM 7.3 MG/DL (8.5-10.1)
[2021-10-04 06:30] LABS: TOTAL PROTEIN 4.2 GM/DL (6.4-8.2)
[2021-10-04 06:32] LABS: BILIRUBIN,TOTAL 0.6 MG/DL (0.1-1.0)
[2021-10-04 06:34] LABS: CREATININE SERUM 0.99 MG/DL (0.60-1.30)
[2021-10-04 06:37] LABS: MAGNESIUM 1.7 MG/DL (1.6-2.4)
[2021-10-04 07:20] VITALS: BP 156/67
[2021-10-04] MEDS: PANTOPRAZOLE 40 MG (PROTONIX) VIAL IV SCH ×2 (08:08→21:38)
[2021-10-04] MEDS: cefTRIAXone 1 GM PRE-MIX 50 ML IV SCH (08:08)
[2021-10-04] MEDS: D5 NS W/KCL 20 MEQ/L 1,000 ML IV SCH ×2 (08:23→21:38)
--- NOTE | 2021-10-04 08:59 | Progress Note - Cardiology ---
Cardiology SOAP Progress Note Subjective: Lying in bed Opens eyes, but does not respond Objective: I&O/Vital Signs 10/07/21 10/07/21 10/07/21 10/07/21 00:59 01:00 03:50 07:00 Temp 36.5 36.9 Pulse 77 61 69 62 Resp 20 18 B/P (MAP) 162/65 (97) 169/74 (105) Pulse Ox 96 97 O2 Delivery Room Air Room Air 10/07/21 07:29 Temp 37.2 Pulse 69 Resp 18 B/P (MAP) 161/78 (105) Pulse Ox 97 O2 Delivery Room Air 10/07/21 00:00 Intake Total 1050 ml Output Total 950 ml Balance 100 ml Weight (Pounds): 121 Weight (Ounces): 0.0 Weight (Calculated Kilograms): 54.322376 Constitutional: other (Thin, frail, moaning, in chair, unable to respond to questions) Respiratory: No accessory muscle use, No respiratory distress; chest expansion is symmetric, chest is bilaterally symmetric, other (fair air entry) Cardiovascular: regular rate-rhythm; No JVD; S1 and S2, systolic murmur Gastrointestional: soft Extremities: no lower extremity edema bilateral Neurologic/Psychiatric: other (see above) Skin: cool Results/Procedures: Labs Laboratory Tests 10/06/21 11:20: Glucometer 133H 10/06/21 17:43: Glucometer 102 10/07/21 00:39: Glucometer 133H 10/07/21 06:33: White Blood Count 7.9, Red Blood Count 2.82L, Hemoglobin 8.3L, Hematocrit 26L, Mean Corpuscular Volume 93, Mean Corpuscular Hemoglobin 29, Mean Corpuscular Hemoglobin Concent 32, Red Cell Distribution Width 15.9H, Platelet Count 132, Mean Platelet Volume 10.1, Immature Granulocyte % (Auto) 1, Neutrophils (%) (Auto) 64, Lymphocytes (%) (Auto) 23, Monocytes (%) (Auto) 8, Eosinophils (%) (Auto) 4, Basophils (%) (Auto) 0, Neutrophils # (Auto) 5.1, Lymphocytes # (Auto) 1.9, Monocytes # (Auto) 0.7, Eosinophils # (Auto) 0.3, Basophils # (Auto) 0.0, Immature Granulocyte # (Auto) 0.1, Sodium Level 137, Potassium Level 3.8, Chloride Level 109H, Carbon Dioxide Level 21, Anion Gap 7, Blood Urea Nitrogen 8, Creatinine 0.85, Estimat Glomerular Filtration Rate 68, BUN/Creatinine Ratio 9, Glucose Level 117H, Calcium Level 7.5L, Corrected Calcium 9.0, Magnesium Level 1.4L, Total Bilirubin 0.5, Aspartate Amino Transf (AST/SGOT) 29, Alanine Aminotransferase (ALT/SGPT) 33, Alkaline Phosphatase 57, Total Protein 4.4L, Albumin 2.1L 10/07/21 06:34: Glucometer 120H Microbiology 10/01/21 Blood Culture - Final, Complete No growth 10/01/21 MRSA Screen - Final, Complete MRSA not isolated 10/01/21 Urine Culture - Final, Complete Escherichia coli A/P: Assessment: Elevated troponin - likely Type 2 [place] secondary to profound anemia and hypotension Anemia - H/H - management per medical services - received transfusions (2 units PRBC) - H/H trending down - not suitable for antiplatelet therapy UTI with sepsis - management per medical services AMS Renal insufficiency - likely d/t vol depletion Hyperkalemia - likely d/t vol depletion 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 at [facility] - does not recall the details, reports a h/o coronary stenting by Dr Manzano who retired more than 5 years ago Plan: Elevated troponin - likely Type 2 [place] secondary to sepsis and hypotension - not suitable for ASA because of profound anemia that is suspected to be due to occult, ongoing blood loss that is being managed by Dr Blackwell Sepsis - management per medical services Renal insufficiency - likely d/t vol depletion - improved with IVF hydration Hyperkalemia - now hypokalemic - replace Gross anemia - undetermined etiology - management per medical services - H/H is trending down following transfusion of 2 units PRBC AMS - management per medical services Monitor lab - replace electrolytes as indicated I discussed her CV issues with her family and answered questions DAGOBERTO RIVERS Oct 04, 2021 08:59
--- NOTE | 2021-10-04 10:12 | Physical Therapy Daily Note ---
PT Daily Note-Current Subjective Family agrees to PT. Patient severely lethargic. Mental Status Patient Orientation: Confused, Listless Attachments: IV Transfers SCALE: Activities may be completed with or without assistive devices. 6-Myuczdgzoz-qdhvbxm completes the activity by him/herself with no assistance from a helper. 5-Set-up or Clean-up Assistance-helper sets up or cleans up; patient completes activity. [place] assists only prior to or following the activity. 4-Supervision or Touching Assistance-helper provides verbal cues and/or touching/steadying and/or contact guard assistance as patient completes activity. Assistance may be provided throughout the activity or intermittently. 3-Partial/Moderate Assistance-helper does LESS THAN HALF the effort. [place] lifts, holds or supports trunk or limbs, but provides less than half the effort. 2-Substantial/Maximal Assistance-helper does MORE THAN HALF the effort. [place] lifts or holds trunk or limbs and provides more than half the effort. 7-Fjpjqwelf-xglwzc does ALL the effort. Patient does none of the effort to complete the activity. Or, the assistance of 2 or more helpers is required for the patient to complete the activity. If activity was not attempted, code reason: 7-Patient Refused. 9-Not Applicable-not attempted and the patient did not perform the activity before the current illness, exacerbation or injury. 10-Not Attempted due to Environmental Limitations-(lack of equipment, weather restraints, etc.). 88-Not Attempted due to Medical Conditions or Safety Concerns. Exercises Supine Ex: Ankle pumps, Heel Slides, Straight leg raise Supine Reps: 15 (PROM x 2 sets) Assessment Patient yells "help" during session. Patient not safe for OOB activity. PROM bilateral LE only. Family had questions about Hospice and patient being a full code. This PT instructed them to discuss with appropriate individuals on these topics. PT Care Home Goals Care Home Goals PT Crystal Mounter Goals Time Frame: Oct 09, 2021 Roll Left & Right (QC): 2 Sit to Lying (QC): 2 Lying-Sitting on Side/Bed(QC): 2 Sit to Stand (QC): 2 Chair/Vwo-ro-Ylhol Xfer(QC): 2 PT Plan Treatment/Plan Treatment Plan: Continue Plan of Care, Modify Plan, see comments (5/wk frequency) Treatment Plan: Bed Mobility, Education, Functional Activity Kareen, Functional Strength, Gait, Safety, Therapeutic Exercise, Transfers Treatment Duration: Oct 09, 2021 Frequency: 5 times per week Estimated Hrs Per Day: .25 hour per day Patient and/or Family Agrees t: Yes Time/GCodes Time In: 941 Time Out: 1000 Total Billed Treatment Time: 19 Total Billed Treatment 1 visit EX 19 min SEFERINO YAÑEZ PT Oct 04, 2021 10:12
[2021-10-04] MEDS: POTASSIUM CL 10MEQ/50ML IVPB 50 ML IV SCH ×4 (10:19→13:28)
--- NOTE | 2021-10-04 10:27 | Progress Note - Surgery ---
Subjective Date Seen by a Provider: Oct 04, 2021 Time Seen by a Provider: 09:44 Subjective/Events-last exam No family at bedside. Patient not waking up. Sleeping despite slight sternal rub. Hgb 7.8. WBC down to 10.5. Focused Exam Lactate Level 10/01/21 11:15: Lactic Acid Level 9.09*H 10/01/21 13:45: Lactic Acid Level 7.02*H Objective Exam Vital Signs Date Time Temp Pulse Resp B/P (MAP) Pulse Ox O2 Delivery O2 Flow Rate FiO2 10/04/21 08:53 Room Air 10/04/21 07:20 36.7 54 20 156/67 (96) 94 Room Air 10/04/21 07:00 60 10/04/21 03:50 37.0 66 20 146/64 (91) 95 Room Air 10/04/21 01:00 67 10/03/21 23:35 37.4 84 26 165/72 (103) 96 Room Air 10/03/21 20:01 Room Air 10/03/21 19:51 36.6 75 18 164/87 (112) 98 Room Air 10/03/21 19:00 71 10/03/21 16:00 36.5 85 20 163/70 (101) 94 Room Air 10/03/21 13:00 84 10/03/21 11:23 36.5 73 18 149/66 (93) 98 Room Air 10/03/21 10:55 67 I & O 10/04/21 07:00 Intake Total 200 ml Output Total 1950 ml Balance -1750 ml Capillary Refill : Less Than 3 Seconds General Appearance: No Apparent Distress, Chronically ill, Thin, Other (unresponsive) HEENT: Normal ENT Inspection; No Moist Mucous Membranes (dry mucous membranes) Neck: Full Range of Motion, Non Tender Respiratory: No Accessory Muscle Use, No Respiratory Distress, Decreased Breath Sounds Cardiovascular: Regular Rate, Rhythm, No JVD Peripheral Pulses: 2+ Carotid (R) Gastrointestinal: non tender, soft Extremity: Normal Range of Motion, No Pedal Edema Neurologic/Psychiatric: No Alert, No Oriented x3; Other (does not wake up with stimulation at this time.) Skin: Cool, Pallor, Other (Skin abrasions to forehead and areas on extremities) Lymphatic: No Adenopathy Results Lab Laboratory Tests 10/03/21 11:15: Glucometer 78 10/03/21 17:07: Glucometer 69L 10/03/21 23:30: Glucometer 103 10/04/21 06:06: Glucometer 130H 10/04/21 06:09: White Blood Count 10.5, Red Blood Count 2.64L, Hemoglobin 7.8L, Hematocrit 24L, Mean Corpuscular Volume 92, Mean Corpuscular Hemoglobin 30, Mean Corpuscular Hemoglobin Concent 32, Red Cell Distribution Width 17.7H, Platelet Count 164, Mean Platelet Volume 9.4, Immature Granulocyte % (Auto) 1, Neutrophils (%) (Auto) 76H, Lymphocytes (%) (Auto) 15, Monocytes (%) (Auto) 6, Eosinophils (%) (Auto) 2, Basophils (%) (Auto) 0, Neutrophils # (Auto) 8.0H, Lymphocytes # (Auto) 1.5, Monocytes # (Auto) 0.7, Eosinophils # (Auto) 0.2, Basophils # (Auto) 0.0, Immature Granulocyte # (Auto) 0.2H, Sodium Level 142, Potassium Level 3.3L, Chloride Level 113H, Carbon Dioxide Level 21, Anion Gap 8, Blood Urea Nitrogen 16, Creatinine 0.99, Estimat Glomerular Filtration Rate 56, BUN/Creatinine Ratio 16, Glucose Level 130H, Calcium Level 7.3L, Corrected Calcium 8.8, Magnesium Level 1.7, Total Bilirubin 0.6, Aspartate Amino Transf (AST/SGOT) 36H, Alanine Aminotransferase (ALT/SGPT) 31, Alkaline Phosphatase 63, Total Protein 4.2L, Albumin 2.1L Microbiology 10/01/21 Blood Culture - Preliminary, Resulted No growth 10/01/21 MRSA Screen - Final, Complete MRSA not isolated 10/01/21 Urine Culture - Final, Complete Escherichia coli Assessment/Plan Assessment/Plan Assessment/Plan fall gi bleed likely upper history of ulcers, severe anemia requiring transfusion. diffuse abdominal pain, could be ischemic bowel due to low flowresolved Failed swallow eval. hold any anticoagulation follow labs and transfuse as needed. patient with diffuse abdominal painresolved no pain currently. Her hemoglobin is stable at this time we will continue to monitor. If continues to drop and stable enough for EGD would do so otherwise if hemoglobin remains stable would not do EGD Failed swallow eval working with speech therapy and family understand. They do not want any gastrostomy tubes or feeding tubes at this time. Protonix Family to discuss with hospice care today. Clinical Quality Measures DVT/VTE Risk/Contraindication: Contraindications-Pharm: Other *list below* Other: LEILA Mark DO Oct 04, 2021 10:27
[2021-10-04] MEDS: NS IV 1000 ML 1,000 ML IV SCH ×2 (10:32→23:35)
[2021-10-04 11:47] VITALS: BP 157/72
--- NOTE | 2021-10-04 11:56 | Speech Therapy Daily Note ---
Speech Daily Progress Note Subjective Date Seen by Provider: Oct 04, 2021 Time Seen by Provider: 10:15 The patient was lying in bed, eyes opened upon entrance to the patient's room by the clinician. The patient has two family members present at bedside. The family members state the patient is "pretty tired," however, the patient remains with eyes opened throughout the clinician's interactions. The patient is positioned upright in bed for safe swallowing. The patient will occasionally yell out, "help," however, verbal communication with intent is not appreciated throughout the treatment session. Objective The patient is presented with thin liquid via ice chip, teaspoon, cup edge, and straw. Additionally, the patient is provided applesauce via teaspoon. The patient abruptly pushes the cup away during attempts from the clinician. The patient bites down on the straw and does not draw material from the item. The patient appropriately removes thin liquid and applesauce from the teaspoon. The patient completes 17 teaspoon trials of thin liquid and consumes three ounces of applesauce. The patient displayed a delayed cough following one of 17 thin liquid attempts. No additional s/s of suspected aspiration were demonstrated. Vocal quality could not be assessed as the patient remains non- verbal. With maximum verbal encouragement, the patient consumed the above consistency over a period of approximately twenty minutes. The clinician is able to state while the patient is alert and participating, she is able to consume thin liquids and puree without overt s/s of suspected aspiration throughout most trials. However, the patient's ability to meet daily nutritional needs by P.O. intake alone is highly doubtful to this clinician. Extensive education was provided to the two family members present. P.O. intake (including thin liquid) should occur by teaspoon, only. If the patient's alertness decreases, the patient should not receive P.O. of any kind. Recommendations: - Dysphagia one with thin liquids, as tolerated. - Food and liquid by teaspoon, only. - Fully upright and ALERT for P.O. intake. - Staff present for total P.O. intake for improved patient safety. - Crush medication and place in puree for administration. - Monitor for s/s of suspected aspiration with P.O. intake. If demonstrated, place the patient NPO and contact speech pathology. The results and recommendations were discussed extensively with the family members present. Per family member, "Someone is going to have to watch my dad because he keeps talking about sneaking her food in." The clinician discussed the patient's continued high risk of aspiration due to overall frailty and fluctuating alertness. Assessment Assessment Current Status: Fair Progress Treatment Plan Continue Plan of Care Speech Short Term Goals Short Term Goals Short Term Goals 1. The patient will participate in P.O. trials of the least restrictive diet consistency without s/s of suspected aspiration. Time Frame-STG: Four Days. Speech Nursing Home Goals Granular Operator Goals 1. The patient will tolerate the least restrictive diet consistency without s/s of suspected aspiration. Time Frame: One week. Speech-Plan Treatment Plan Speech Therapy Treatment Plan: Continue Plan of Care Treatment Duration: Oct 10, 2021 Frequency: 3 times per week (Three to five times per week.) Estimated Hrs Per Day: .25 hour per day Rehab Potential: Poor Pt/Family Agrees to Plan: Yes Safety Risks/Education Teaching Recipient: Patient, Family Teaching Methods: Discussion Response to Teaching: Reinforcement Needed Education Topics Provided: Results, Recommendations, Education re: Aspiration Time Speech Therapy Time In: 10:15 Speech Therapy Time Out: 10:40 Total Billed Time: 25 Billed Treatment Time 1, KEVIN Masters Oct 04, 2021 11:55
--- NOTE | 2021-10-04 12:59 | Progress Note - Cardiology ---
Cardiology SOAP Progress Note Subjective: Unable to respond to any questions Objective: I&O/Vital Signs 10/04/21 10/04/21 10/04/21 10/04/21 01:00 03:50 07:00 07:20 Temp 37.0 36.7 Pulse 67 66 60 54 Resp 20 20 B/P (MAP) 146/64 (91) 156/67 (96) Pulse Ox 95 94 O2 Delivery Room Air Room Air 10/04/21 10/04/21 10/04/21 08:53 11:47 12:47 Temp 37.0 Pulse 72 78 Resp 22 B/P (MAP) 157/72 (100) Pulse Ox 96 O2 Delivery Room Air Room Air 10/04/21 00:00 Intake Total 0 ml Output Total 1350 ml Balance -1350 ml Weight (Pounds): 121 Weight (Ounces): 0.0 Weight (Calculated Kilograms): 54.121538 Constitutional: other (unable to respond to questions) Respiratory: No accessory muscle use, No respiratory distress; chest expansion is symmetric, chest is bilaterally symmetric, other (fair air entry) Cardiovascular: regular rate-rhythm; No JVD; S1 and S2, systolic murmur Gastrointestional: soft Extremities: no lower extremity edema bilateral Neurologic/Psychiatric: other (see above) Skin: cool Results/Procedures: Labs Laboratory Tests 10/03/21 17:07: Glucometer 69L 10/03/21 23:30: Glucometer 103 10/04/21 06:06: Glucometer 130H 10/04/21 06:09: White Blood Count 10.5, Red Blood Count 2.64L, Hemoglobin 7.8L, Hematocrit 24L, Mean Corpuscular Volume 92, Mean Corpuscular Hemoglobin 30, Mean Corpuscular Hemoglobin Concent 32, Red Cell Distribution Width 17.7H, Platelet Count 164, Mean Platelet Volume 9.4, Immature Granulocyte % (Auto) 1, Neutrophils (%) (Auto) 76H, Lymphocytes (%) (Auto) 15, Monocytes (%) (Auto) 6, Eosinophils (%) (Auto) 2, Basophils (%) (Auto) 0, Neutrophils # (Auto) 8.0H, Lymphocytes # (Auto) 1.5, Monocytes # (Auto) 0.7, Eosinophils # (Auto) 0.2, Basophils # (Auto) 0.0, Immature Granulocyte # (Auto) 0.2H, Sodium Level 142, Potassium Level 3.3L, Chloride Level 113H, Carbon Dioxide Level 21, Anion Gap 8, Blood Urea Nitrogen 16, Creatinine 0.99, Estimat Glomerular Filtration Rate 56, BUN/Creatinine Ratio 16, Glucose Level 130H, Calcium Level 7.3L, Corrected Calcium 8.8, Magnesium Level 1.7, Total Bilirubin 0.6, Aspartate Amino Transf (AST/SGOT) 36H, Alanine Aminotransferase (ALT/SGPT) 31, Alkaline Phosphatase 63, Total Protein 4.2L, Albumin 2.1L 10/04/21 11:50: Glucometer 150H Microbiology 10/01/21 Blood Culture - Preliminary, Resulted No growth 10/01/21 MRSA Screen - Final, Complete MRSA not isolated 10/01/21 Urine Culture - Final, Complete Escherichia coli Laboratory Tests 10/03/21 05:00 10/04/21 06:09 A/P: Assessment: Elevated troponin - likely Type 2 [place] secondary to profound anemia and hypotension Anemia - H/H - management per medical services - received transfusions (2 units PRBC) - H/H trending down - not suitable for antiplatelet therapy UTI with sepsis - management per medical services AMS Renal insufficiency - likely d/t vol depletion Hyperkalemia - likely d/t vol depletion 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[facility] records - ischemic R CVA for which she was transferred to [facility] and then back to [facility] IRF in 2017 Spouse reports a h/o coronary balloon angioplasty by Dr Manzano who retired several years ago (details unknown) Plan: Elevated troponin - likely Type 2 [place] secondary to sepsis and hypotension - not suitable for ASA because of profound anemia that is suspected to be due to occult, ongoing blood loss that is being managed by Dr Blackwell Sepsis - management per medical services Renal insufficiency - likely d/t vol depletion - improved with IVF hydration Hyperkalemia - now hypokalemic - replace Gross anemia - undetermined etiology - management per medical services - H/H is trending down following transfusion of 2 units PRBC AMS - management per medical services Monitor lab - replace electrolytes as indicated I discussed her CV issues with her family and answered questions OLEG SOW MD FACP FAC CCDS Oct 04, 2021 12:59
[2021-10-04 17:00] VITALS: BP 151/98
[2021-10-04 20:16] VITALS: BP 168/79
[2021-10-05 00:30] VITALS: BP 167/69
[2021-10-05 04:08] VITALS: BP 175/65
[2021-10-05 05:42] LABS: BASOPHILS % (AUTO) 0 % (0-10); EOSINOPHILS # (AUTO) 0.2 10^3/uL (0.0-0.3); EOSINOPHILS % (AUTO) 3 % (0-10); HEMATOCRIT 26 % (35-52); HEMOGLOBIN 8.4 g/dL (11.5-16.0); LYMPHOCYTES # (AUTO) 1.9 10^3/uL (1.0-4.0); LYMPHOCYTES % (AUTO) 24 % (12-44); MEAN CORPUSCULAR HEMOGLOBIN 30 pg (25-34); MEAN CORPUSCULAR HGB CONC 33 g/dL (32-36); MEAN CORPUSCULAR VOLUME 92 fL (80-99); MEAN PLATELET VOLUME 9.6 fL (9.0-12.2); MONOCYTES # (AUTO) 0.7 10^3/uL (0.0-1.0); MONOCYTES % (AUTO) 9 % (0-12); NEUTROPHILS # (AUTO) 5.2 10^3/uL (1.8-7.8); NEUTROPHILS % (AUTO) 64 % (42-75); PLATELET COUNT 170 10^3/uL (130-400); WHITE BLOOD COUNT 8.2 10^3/uL (4.3-11.0)
[2021-10-05 05:51] LABS: ALBUMIN 2.2 GM/DL (3.2-4.5); POTASSIUM 3.8 MMOL/L (3.6-5.0)
[2021-10-05 05:52] LABS: CALCIUM 7.4 MG/DL (8.5-10.1)
[2021-10-05 05:53] LABS: TOTAL PROTEIN 4.6 GM/DL (6.4-8.2)
[2021-10-05 05:55] LABS: BILIRUBIN,TOTAL 0.5 MG/DL (0.1-1.0)
[2021-10-05 05:57] LABS: CREATININE SERUM 0.92 MG/DL (0.60-1.30)
[2021-10-05 06:00] LABS: MAGNESIUM 1.5 MG/DL (1.6-2.4)
--- NOTE | 2021-10-05 06:05 | Progress Note - Hospitalist ---
Subjective HPI/CC On Admission Date Seen by Provider: Oct 05, 2021 Time Seen by Provider: 09:00 CC: GI Bleed with Hypotension HPI: This is a pt of [facility]. Pt presented from [facility] with severe GI bleed with coffee ground emesis and lower GI bleed. Her hemoglobin was 4.2. She was hypotensive, improved with IV fluids. She remains a DNR. She lives at home with her who has taken care of her since the stroke. Upon assessment she appeared to be very frail, very declined, and very altered. I did have a long conversation with and daughter and multiple questions answered. We will try to provide blood transfusion and support, but she could very well pass away. PICC line will be placed. Dr. Gallardo and Dr. Newell both consulted for GI bleed and elevated troponin respectively. Subjective/Events-last exam Patient about the same Has unresponsive episodes consistent with end-of-life processes at the bedside with son Unrealistic expectations Pured diet with thickened liquids seem to be tolerated wants to be sure if she is on hospice that she can get blood if she nee ds it but considering the stability of her hemoglobin now at 8.4 and no active bleeding at this concern is really a moot point Patient appears to be very end-stage In my opinion needs comfort care protocol Last evening daughter yelled at the nurse all night long because she was preparing her for possible cardiopulmonary arrest and what daughter should do if that should occur in order to prepare her Very difficult family to manage but will continue to be supportive although they are all in denial about end-of-life processes Review of Systems Neurological: Confusion Objective Exam Vital Signs Vital Signs Date Time Temp Pulse Resp B/P (MAP) Pulse Ox O2 Delivery O2 Flow Rate FiO2 10/05/21 16:25 36.6 75 20 156/73 (100) 95 Room Air 10/05/21 10:49 0.00 Capillary Refill : Less Than 3 Seconds General Appearance: Chronically ill, Thin, Other ([place] and ashen and chron ically ill, frail, lethargic) Respiratory: Lungs Clear Cardiovascular: Regular Rate, Rhythm Results/Procedures Lab Laboratory Tests 10/05/21 05:17 Patient resulted labs reviewed. Assessment/Plan Assessment and Plan Assess & Plan/Chief Complaint Assessment: Hypotension GIB Severe anemia Prior CVA Chronic debility AMBIKA Elevated troponin h/o HTN HLP Dysphagia Plan: ICU Transfuse Dr Gallardo consult Dr Newell consult DNR Very grave prognosis 10/02: Transfer to 4th floor Change full code to DNR at family request 10/03: ST eval swallowing PT OT Needs end of life care 10/04: Pureed diet Thickened liquids Needs end of life care 10/05: Continue supportive care Needs end-of-life care Diagnosis/Problems Diagnosis/Problems (1) Acute GI bleeding Status: Acute (2) Dehydration Status: Acute (3) Non-ST elevated myocardial infarction Status: Acute (4) Anemia due to GI blood loss Status: Acute (5) Elevated lactic acid level Status: Acute (6) Cerebrovascular accident (CVA) involving right cerebral hemisphere Clinical Quality Measures DVT/VTE Risk/Contraindication: Contraindications-Pharm: Other *list below* Other: HANS Han DO Oct 05, 2021 06:05
[2021-10-05 08:00] VITALS: BP 168/68
--- NOTE | 2021-10-05 09:18 | Physical Therapy Progress Note ---
Therapy Progress Note PT treatment attempted. kindergarten instructional assistant was in room. This PT helped reposition patient. Patient to lethargic for any treatment. ADRY LAWTON PT Oct 05, 2021 09:18
[2021-10-05] MEDS: cefTRIAXone 1 GM PRE-MIX 50 ML IV SCH (09:27)
[2021-10-05] MEDS: PANTOPRAZOLE 40 MG (PROTONIX) VIAL IV SCH ×2 (09:29→21:34)
[2021-10-05] MEDS: LORazepam INJ 2 MG/ML (ATIVAN) VIAL IVP PRN (09:36)
[2021-10-05] MEDS: morphine INJ 4 MG/ML 1 ML (VIAL/SYRINGE) IV PRN (09:36)
[2021-10-05 11:03] VITALS: BP 136/72
--- NOTE | 2021-10-05 12:24 | Progress Note ---
Subjective Date Seen by a Provider: Oct 05, 2021 Time Seen by a Provider: 11:40 Subjective/Events-last exam Patient seen with Dr. Knox. Family at bedside and reports that she did have pain meds and ativan recently. Patient opens eyes but no verbal communication. Objective Exam Vital Signs Date Time Temp Pulse Resp B/P (MAP) Pulse Ox O2 Delivery O2 Flow Rate FiO2 10/05/21 11:03 37.2 62 18 136/72 (93) 96 Room Air 10/05/21 10:49 98 Room Air 0.00 10/05/21 08:00 37.2 78 18 168/68 (101) 98 Room Air 10/05/21 07:00 75 10/05/21 04:08 37.2 80 18 175/65 (101) 96 Room Air 10/05/21 01:00 80 10/05/21 00:30 37.2 77 20 167/69 (101) 97 Room Air 10/04/21 21:45 Room Air 10/04/21 20:16 80 20 168/79 (108) 98 Room Air 10/04/21 19:00 85 10/04/21 17:00 36.7 75 18 151/98 (115) 96 Room Air 10/04/21 12:47 78 I & O 10/05/21 07:00 Intake Total 250 ml Output Total 1425 ml Balance -1175 ml Capillary Refill : Less Than 3 Seconds General Appearance: No Apparent Distress Respiratory: No Accessory Muscle Use, No Respiratory Distress Gastrointestinal: normal bowel sounds, non tender, soft Skin: Normal Color, Warm/Dry Results Lab Laboratory Tests 10/04/21 17:20: Glucometer 145H 10/04/21 20:22: Glucometer 148H 10/05/21 00:17: Glucometer 138H 10/05/21 05:14: Glucometer 147H 10/05/21 05:17: White Blood Count 8.2, Red Blood Count 2.80L, Hemoglobin 8.4L, Hematocrit 26L, M elizabeth Corpuscular Volume 92, Mean Corpuscular Hemoglobin 30, Mean Corpuscular Hemoglobin Concent 33, Red Cell Distribution Width 16.9H, Platelet Count 170, Mean Platelet Volume 9.6, Immature Granulocyte % (Auto) 1, Neutrophils (%) (Auto) 64, Lymphocytes (%) (Auto) 24, Monocytes (%) (Auto) 9, Eosinophils (%) (Auto) 3, Basophils (%) (Auto) 0, Neutrophils # (Auto) 5.2, Lymphocytes # (Auto) 1.9, Monocytes # (Auto) 0.7, Eosinophils # (Auto) 0.2, Basophils # (Auto) 0.0, Immature Granulocyte # (Auto) 0.1, Sodium Level 139, Potassium Level 3.8, Chloride Level 111H, Carbon Dioxide Level 21, Anion Gap 7, Blood Urea Nitrogen 10, Creatinine 0.92, Estimat Glomerular Filtration Rate 61, BUN/Creatinine Ratio 11, Glucose Level 147H, Calcium Level 7.4L, Corrected Calcium 8.8, Magnesium Level 1.5L, Total Bilirubin 0.5, Aspartate Amino Transf (AST/SGOT) 64H, Alanine Aminotransferase (ALT/SGPT) 55, Alkaline Phosphatase 59, Total Protein 4.6L, Albumin 2.2L 10/05/21 11:09: Glucometer 134H Microbiology 10/01/21 Blood Culture - Preliminary, Resulted No growth 10/01/21 MRSA Screen - Final, Complete MRSA not isolated 10/01/21 Urine Culture - Final, Complete Escherichia coli Assessment/Plan Assessment/Plan Assess & Plan/Chief Complaint An 86 year old female with GI Bleed, anemia, history of ulcers, failed swallow evaluation VSS Hgb 8.4 Her hemoglobin is stable at this time we will continue to monitor. If continues to drop and stable enough for EGD would do so otherwise if hemoglobin remains stable would not do EGD Failed swallow eval working with speech therapy and family understand. They do not want any gastrostomy tubes or feeding tubes at this time. Protonix continue to follow hgb Clinical Quality Measures DVT/VTE Risk/Contraindication: Contraindications-Pharm: Other *list below* Other: NILO Ortiz BOTTOM BRUSHER Oct 05, 2021 12:24
[2021-10-05] MEDS: NS IV 1000 ML 1,000 ML IV SCH (12:41)
--- NOTE | 2021-10-05 13:06 | Cardiology Progress Note ---
Progress Note-Cardiology Events since last exam Date Seen by Provider: Oct 05, 2021 Time Seen by Provider: 13:01 Events since last exam We are following her due to abnormal troponin level. Earlier today, the patient was somewhat agitated and received Ativan and morphine. When I saw her, she was sedated and not easily arousable. I spoke to her and son both of whom were at the bedside. She had not been complaining of chest discomfort, dyspnea, palpitations, ankle edema or syncope. On the day of admission earlier this week, she was extremely weak. Her reports that she follows with a car diologist at [facility] and was due to see him for a yearly visit right around now. Certain portions of this document may have been dictated utilizing voice recognition technology. Inherent to this technology, typographical and grammatical errors may exist. As much as I am diligent to identify and correct these mistakes, some errors may remain in the document. Vitals Last set of Vitals Signs Vital Signs 10/05/21 10/05/21 10:49 11:03 Temp 37.2 Pulse 62 Resp 18 B/P (MAP) 136/72 (93) Pulse Ox 96 O2 Delivery Room Air O2 Flow Rate 0.00 Labs Labs Laboratory Tests 10/05/21 05:17 Exam Vital Signs Vital Signs Date Time Temp Pulse Resp B/P (MAP) Pulse Ox O2 Delivery O2 Flow Rate FiO2 10/05/21 11:03 37.2 62 18 136/72 (93) 96 Room Air 10/05/21 10:49 0.00 Physical Exam General: Sedated and not arousable although I did not do a sternal rub. Eye: No xanthelasma. HENT: Normocephalic. Neck: Jugular venous pressure does not appear elevated. Respiratory: Lungs are clear to auscultation but decreased at the bases bilaterally. Respirations are non-labored. Breath sounds are equal. Symmetrical chest wall expansion. Cardiovascular: Normal rate. Regular rhythm. No murmur. No gallop. No edema. Gastrointestinal: Soft. Hypoactive bowel sounds. Skin: Warm. Dry. Neurologic: Sedated. Psychiatric: Sedated. Labs Laboratory Tests Test 10/04/21 17:20 10/04/21 20:22 10/05/21 00:17 10/05/21 05:14 Range/Units Glucometer 145 H 148 H 138 H 147 H 70-110 MG/DL Test 10/05/21 05:17 10/05/21 11:09 Range/Units White Blood Count 8.2 4.3-11.0 10^3/uL Red Blood Count 2.80 L 3.80-5.11 10^6/uL Hemoglobin 8.4 L 11.5-16.0 g/dL Hematocrit 26 L 35-52 % Mean Corpuscular Volume 92 80-99 fL Mean Corpuscular Hemoglobin 30 25-34 pg Mean Corpuscular Hemoglobin Concent 33 32-36 g/dL Red Cell Distribution Width 16.9 H 10.0-14.5 % Platelet Count 170 130-400 10^3/uL Mean Platelet Volume 9.6 9.0-12.2 fL Immature Granulocyte % (Auto) 1 % Neutrophils (%) (Auto) 64 42-75 % Lymphocytes (%) (Auto) 24 12-44 % Monocytes (%) (Auto) 9 0-12 % Eosinophils (%) (Auto) 3 0-10 % Basophils (%) (Auto) 0 0-10 % Neutrophils # (Auto) 5.2 1.8-7.8 10^3/uL Lymphocytes # (Auto) 1.9 1.0-4.0 10^3/uL Monocytes # (Auto) 0.7 0.0-1.0 10^3/uL Eosinophils # (Auto) 0.2 0.0-0.3 10^3/uL Basophils # (Auto) 0.0 0.0-0.1 10^3/uL Immature Granulocyte # (Auto) 0.1 0.0-0.1 10^3/uL Sodium Level 139 135-145 MMOL/L Potassium Level 3.8 3.6-5.0 MMOL/L Chloride Level 111 H 98-107 MMOL/L Carbon Dioxide Level 21 21-32 MMOL/L Anion Gap 7 5-14 MMOL/L Blood Urea Nitrogen 10 7-18 MG/DL Creatinine 0.92 0.60-1.30 MG/DL Estimat Glomerular Filtration Rate 61 BUN/Creatinine Ratio 11 Glucose Level 147 H 70-105 MG/DL Calcium Level 7.4 L 8.5-10.1 MG/DL Corrected Calcium 8.8 8.5-10.1 MG/DL Magnesium Level 1.5 L 1.6-2.4 MG/DL Total Bilirubin 0.5 0.1-1.0 MG/DL Aspartate Amino Transf (AST/SGOT) 64 H 5-34 U/L Alanine Aminotransferase (ALT/SGPT) 55 0-55 U/L Alkaline Phosphatase 59 40-136 U/L Total Protein 4.6 L 6.4-8.2 GM/DL Albumin 2.2 L 3.2-4.5 GM/DL Glucometer 134 H 70-110 MG/DL Diagnosis/Problems Diagnosis/Problems (1) Troponin level elevated Assessment & Plan: She may have suffered a type II non-ST elevation myocardial infarction due to profound anemia. She is not complaining of angina. Given her advanced age and frail state, she would not be an ideal candidate for an invasive cardiac evaluation. We will continue conservative medical therapy. No aspirin due to the gastrointestinal hemorrhage. (2) Primary hypertension Assessment & Plan: She appears to been taking metoprolol at home but due to altered mental status, is not currently swallowing pills. She has nitroglycerin paste and intravenous hydralazine ordered as needed. (3) Mixed hyperlipidemia Assessment & Plan: I added a lipid panel to this morning's blood work. As above, she has not been swallowing pills due to her altered mental status. (4) Anemia due to GI blood loss Status: Acute Assessment & Plan: Hemoglobin seems to have stabilized. Because of the anemia, aspirin is on hold. JUSTIN NARAYANAN JR, MD Oct 05, 2021 13:06
[2021-10-05 13:10] LABS: TRIGLYCERIDES 112 MG/DL (<150); VLDL CHOLESTEROL 22 MG/DL (5-40)
[2021-10-05 13:15] LABS: CHOLESTEROL 92 MG/DL (< 200); HDL CHOLESTEROL 24 MG/DL (40-60)
[2021-10-05] MEDS: D5 NS W/KCL 20 MEQ/L 1,000 ML IV SCH (15:19)
[2021-10-05 16:25] VITALS: BP 156/73
[2021-10-05 20:53] VITALS: BP 170/76
[2021-10-06] VITALS: BP 171/72
[2021-10-06] MEDS: D5 NS W/KCL 20 MEQ/L 1,000 ML IV SCH ×2 (01:16→18:49)
[2021-10-06] MEDS: NS IV 1000 ML 1,000 ML IV SCH ×2 (01:18→13:07)
[2021-10-06] MEDS: NITROGLYCERIN 2% OINT 1 GM UNIT DOSE PACKET TOP PRN (03:52)
[2021-10-06 04:13] VITALS: BP 179/75
[2021-10-06 06:12] LABS: BASOPHILS % (AUTO) 0 % (0-10); EOSINOPHILS # (AUTO) 0.3 10^3/uL (0.0-0.3); EOSINOPHILS % (AUTO) 4 % (0-10); HEMATOCRIT 26 % (35-52); HEMOGLOBIN 8.2 g/dL (11.5-16.0); LYMPHOCYTES % (AUTO) 23 % (12-44); MEAN CORPUSCULAR HEMOGLOBIN 30 pg (25-34); MEAN CORPUSCULAR HGB CONC 32 g/dL (32-36); MEAN CORPUSCULAR VOLUME 93 fL (80-99); MEAN PLATELET VOLUME 9.5 fL (9.0-12.2); MONOCYTES # (AUTO) 0.7 10^3/uL (0.0-1.0); MONOCYTES % (AUTO) 8 % (0-12); NEUTROPHILS # (AUTO) 5.7 10^3/uL (1.8-7.8); NEUTROPHILS % (AUTO) 65 % (42-75); PLATELET COUNT 142 10^3/uL (130-400); WHITE BLOOD COUNT 8.7 10^3/uL (4.3-11.0)
[2021-10-06 06:19] LABS: ALBUMIN 2.1 GM/DL (3.2-4.5)
[2021-10-06 06:21] LABS: CALCIUM 7.4 MG/DL (8.5-10.1)
[2021-10-06 06:22] LABS: TOTAL PROTEIN 4.4 GM/DL (6.4-8.2)
[2021-10-06 06:24] LABS: BILIRUBIN,TOTAL 0.5 MG/DL (0.1-1.0)
[2021-10-06 06:26] LABS: CREATININE SERUM 0.92 MG/DL (0.60-1.30)
[2021-10-06 06:28] LABS: MAGNESIUM 1.4 MG/DL (1.6-2.4)
--- NOTE | 2021-10-06 07:02 | Progress Note - Hospitalist ---
Subjective HPI/CC On Admission Date Seen by Provider: Oct 06, 2021 Time Seen by Provider: 10:00 CC: GI Bleed with Hypotension HPI: This is a pt of [facility]. Pt presented from [facility] with severe GI bleed with coffee ground emesis and lower GI bleed. Her hemoglobin was 4.2. She was hypotensive, improved with IV fluids. She remains a DNR. She lives at home with her who has taken care of her since the stroke. Upon assessment she appeared to be very frail, very declined, and very altered. I did have a long conversation with and daughter and multiple questions answered. We will try to provide blood transfusion and support, but she could very well pass away. PICC line will be placed. Dr. Gallardo and Dr. Newell both consulted for GI bleed and elevated troponin respectively. Subjective/Events-last exam Patient about the same No pain is reported Family at the bedside All questions answered to the best of my ability Checked meds and labs Review of Systems General: Fatigue, Malaise Objective Exam Vital Signs Vital Signs Date Time Temp Pulse Resp B/P (MAP) Pulse Ox O2 Delivery O2 Flow Rate FiO2 10/06/21 16:01 37.2 73 20 167/74 (105) 97 Room Air 10/06/21 10:20 0.00 Capillary Refill : Less Than 3 Seconds General Appearance: No Apparent Distress, WD/WN, Chronically ill Respiratory: Lungs Clear, Normal Breath Sounds Cardiovascular: Regular Rate, Rhythm Neurologic/Psychiatric: Other (Sedated) Results/Procedures Lab Laboratory Tests 10/06/21 05:52 Patient resulted labs reviewed. Assessment/Plan Assessment and Plan Assess & Plan/Chief Complaint Assessment: Hypotension GIB Severe anemia Prior CVA Chronic debility AMBIKA Elevated troponin h/o HTN HLP Dysphagia Plan: ICU Transfuse Dr Gallardo consult Dr Newell consult DNR Very grave prognosis 10/02: Transfer to 4th floor Change full code to DNR at family request 10/03: ST eval swallowing PT OT Needs end of life care 10/04: Pureed diet Thickened liquids Needs end of life care 10/05: Continue supportive care Needs end-of-life care 10/06: Continue supportive care Needs end-of-life care Diagnosis/Problems Diagnosis/Problems (1) Acute GI bleeding Status: Acute (2) Dehydration Status: Acute (3) Non-ST elevated myocardial infarction Status: Acute (4) Anemia due to GI blood loss Status: Acute (5) Elevated lactic acid level Status: Acute (6) 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
[2021-10-06 07:46] VITALS: BP 160/74
[2021-10-06] MEDS: PANTOPRAZOLE 40 MG (PROTONIX) VIAL IV SCH ×2 (08:56→21:53)
[2021-10-06] MEDS: cefTRIAXone 1 GM PRE-MIX 50 ML IV SCH (08:57)
[2021-10-06 11:16] VITALS: BP 161/68
--- NOTE | 2021-10-06 11:30 | Cardiology Progress Note ---
Progress Note-Cardiology Events since last exam Date Seen by Provider: Oct 06, 2021 Time Seen by Provider: 11:25 Events since last exam We are following her due to abnormal troponin level. She normally had been following with a parts delivery driver in [place] about once per year. I spoke to her family who is at the bedside. She remains somnolent. Her family tells me that for at least the past year, she would normally communicate with few words and some hand gestures. When I saw her this morning, she opened her eyes to voice but was not communicating. I could not obtain any history from her. Certain portions of this document may have been dictated utilizing voice recognition technology. Inherent to this technology, typographical and grammatical errors may exist. As much as I am diligent to identify and correct these mistakes, some errors may remain in the document. Vitals Last set of Vitals Signs Vital Signs 10/06/21 10/06/21 10:20 11:16 Temp 37.2 Pulse 73 Resp 20 B/P (MAP) 161/68 (99) Pulse Ox 97 O2 Delivery Room Air O2 Flow Rate 0.00 Labs Labs Laboratory Tests 10/06/21 05:52 Exam Vital Signs Vital Signs Date Time Temp Pulse Resp B/P (MAP) Pulse Ox O2 Delivery O2 Flow Rate FiO2 10/06/21 11:16 37.2 73 20 161/68 (99) 97 Room Air 10/06/21 10:20 0.00 Physical Exam General: Somnolent but opens eyes to voice. Not following commands. Eye: No xanthelasma. HENT: Normocephalic. Neck: Jugular venous pressure does not appear elevated. Respiratory: Lungs are clear to auscultation but decreased at the bases bi laterally. Respirations are non-labored. Breath sounds are equal. Symmetrical chest wall expansion. Cardiovascular: Normal rate. Regular rhythm. No murmur. No gallop. No edema. Gastrointestinal: Soft. Hypoactive bowel sounds. Skin: Warm. Dry. Neurologic: Somnolent and not following commands. Psychiatric: Somnolent. Labs Laboratory Tests Test 10/05/21 17:44 10/06/21 00:03 10/06/21 05:50 10/06/21 05:52 Range/Units Glucometer 80 92 112 H 70-110 MG/DL White Blood Count 8.7 4.3-11.0 10^3/uL Red Blood Count 2.78 L 3.80-5.11 10^6/uL Hemoglobin 8.2 L 11.5-16.0 g/dL Hematocrit 26 L 35-52 % Mean Corpuscular Volume 93 80-99 fL Mean Corpuscular Hemoglobin 30 25-34 pg Mean Corpuscular Hemoglobin Concent 32 32-36 g/dL Red Cell Distribution Width 16.5 H 10.0-14.5 % Platelet Count 142 130-400 10^3/uL Mean Platelet Volume 9.5 9.0-12.2 fL Immature Granulocyte % (Auto) 1 % Neutrophils (%) (Auto) 65 42-75 % Lymphocytes (%) (Auto) 23 12-44 % Monocytes (%) (Auto) 8 0-12 % Eosinophils (%) (Auto) 4 0-10 % Basophils (%) (Auto) 0 0-10 % Neutrophils # (Auto) 5.7 1.8-7.8 10^3/uL Lymphocytes # (Auto) 2.0 1.0-4.0 10^3/uL Monocytes # (Auto) 0.7 0.0-1.0 10^3/uL Eosinophils # (Auto) 0.3 0.0-0.3 10^3/uL Basophils # (Auto) 0.0 0.0-0.1 10^3/uL Immature Granulocyte # (Auto) 0.1 0.0-0.1 10^3/uL Sodium Level 138 135-145 MMOL/L Potassium Level 4.0 3.6-5.0 MMOL/L Chloride Level 111 H 98-107 MMOL/L Carbon Dioxide Level 20 L 21-32 MMOL/L Anion Gap 7 5-14 MMOL/L Blood Urea Nitrogen 9 7-18 MG/DL Creatinine 0.92 0.60-1.30 MG/DL Estimat Glomerular Filtration Rate 61 BUN/Creatinine Ratio 10 Glucose Level 117 H 70-105 MG/DL Calcium Level 7.4 L 8.5-10.1 MG/DL Corrected Calcium 8.9 8.5-10.1 MG/DL Magnesium Level 1.4 L 1.6-2.4 MG/DL Total Bilirubin 0.5 0.1-1.0 MG/DL Aspartate Amino Transf (AST/SGOT) 36 H 5-34 U/L Alanine Aminotransferase (ALT/SGPT) 41 0-55 U/L Alkaline Phosphatase 51 40-136 U/L Total Protein 4.4 L 6.4-8.2 GM/DL Albumin 2.1 L 3.2-4.5 GM/DL Test 10/06/21 11:20 Range/Units Glucometer 133 H 70-110 MG/DL Diagnosis/Problems Diagnosis/Problems (1) Troponin level elevated Assessment & Plan: She may have suffered a type II non-ST elevation myocardial infarction due to profound anemia with supply/demand. She had not been complaining of angina but does not normally speak many words, presumably due to previous stroke. Given her advanced age and frail state, she would not be an ideal candidate for an invasive cardiac evaluation. We will continue conservative medical therapy. No aspirin due to the gastrointestinal hemorrhage. (2) Coronary artery disease without angina pectoris Assessment & Plan: As above, she may have suffered a small type II non-ST elevation myocardial infarction. She has not been taking oral medications consistently due to aspiration risk. She is not on aspirin due to profound anemia. (3) Primary hypertension Assessment & Plan: She appears to been taking metoprolol at home but due to altered mental status, is not currently swallowing pills. She has nitroglycerin paste and intravenous hydralazine ordered as needed. (4) Mixed hyperlipidemia Assessment & Plan: Her cholesterol level is quite low on no medication. This is probably due to at least a moderate degree of protein calorie malnutrition. I do not think there would be much benefit in adding a statin medication. (5) Anemia due to GI blood loss Status: Acute Assessment & Plan: Hemoglobin seems to have stabilized. Because of the anemia, aspirin is on hold. (6) Frailty Assessment & Plan: Given her age and comorbid conditions, she is probably at least moderately frail. She may need transfer to prison facility and possibly hospice. Her family is investigating possibilities. (7) Protein-calorie malnutrition, moderate Assessment & Plan: Based upon her low protein level and low cholesterol levels, she probably has at least a moderate degree of protein calorie malnutrition probably due to poor caloric intake prior to admission. JUSTIN NARAYANAN JR, MD Oct 06, 2021 11:30
[2021-10-06] MEDS ORDERED: LIDOCAINE 4% (SALONPAS) PATCH TOP PRN (11:45)
[2021-10-06] MEDS ORDERED: LIDOCAINE PATCH REMOVAL TP PRN (13:00)
[2021-10-06] MEDS: SUCRALFATE 1 GM (CARAFATE) TAB PO SCH ×2 (15:57→21:56)
[2021-10-06] MEDS ORDERED: SUCRALFATE PO SCH (16:00)
[2021-10-06 16:01] VITALS: BP 167/74
[2021-10-06] MEDS: MULTIVIT W/MINERALS TAB (THERAGRAN M) PO SCH (17:34)
[2021-10-06] MEDS: OMEGA 3 (FISH OIL) 1000 MG CAP PO SCH (18:01)
[2021-10-06 19:51] VITALS: BP 161/74
[2021-10-06] MEDS ORDERED: NON-FORMULARY MEDICATION 1 EA EA (C,E,Zinc,Copper 11/Omega3s/Lut (Ocuvite Adult 50 Plus So PO SCH (21:00)
[2021-10-06] MEDS ORDERED: NON-FORMULARY MEDICATION 1 EA EA (Multivitamin 1 EACH) PO SCH (21:00)
[2021-10-06] MEDS ORDERED: OMEGA-3 ACID ETHYL ESTERS 1 GM (LOVAZA) NON-FORMULARY PO SCH (21:00)
[2021-10-06] MEDS: DONEPEZIL 10 MG (ARICEPT) TAB PO SCH (21:56)
[2021-10-07] VITALS (7 sets, daily range): BP systolic 143–179; BP diastolic 65–80
[2021-10-07] MEDS: NS IV 1000 ML 1,000 ML IV SCH (00:10)
[2021-10-07] MEDS: SUCRALFATE 1 GM (CARAFATE) TAB PO SCH ×4 (05:28→19:48)
[2021-10-07 06:50] LABS: BASOPHILS % (AUTO) 0 % (0-10); EOSINOPHILS # (AUTO) 0.3 10^3/uL (0.0-0.3); EOSINOPHILS % (AUTO) 4 % (0-10); HEMATOCRIT 26 % (35-52); HEMOGLOBIN 8.3 g/dL (11.5-16.0); LYMPHOCYTES # (AUTO) 1.9 10^3/uL (1.0-4.0); LYMPHOCYTES % (AUTO) 23 % (12-44); MEAN CORPUSCULAR HEMOGLOBIN 29 pg (25-34); MEAN CORPUSCULAR HGB CONC 32 g/dL (32-36); MEAN CORPUSCULAR VOLUME 93 fL (80-99); MEAN PLATELET VOLUME 10.1 fL (9.0-12.2); MONOCYTES # (AUTO) 0.7 10^3/uL (0.0-1.0); MONOCYTES % (AUTO) 8 % (0-12); NEUTROPHILS # (AUTO) 5.1 10^3/uL (1.8-7.8); NEUTROPHILS % (AUTO) 64 % (42-75); PLATELET COUNT 132 10^3/uL (130-400); WHITE BLOOD COUNT 7.9 10^3/uL (4.3-11.0)
[2021-10-07 06:59] LABS: ALBUMIN 2.1 GM/DL (3.2-4.5)
[2021-10-07 07:00] LABS: POTASSIUM 3.8 MMOL/L (3.6-5.0)
[2021-10-07 07:01] LABS: CALCIUM 7.5 MG/DL (8.5-10.1)
[2021-10-07 07:02] LABS: TOTAL PROTEIN 4.4 GM/DL (6.4-8.2)
[2021-10-07 07:04] LABS: BILIRUBIN,TOTAL 0.5 MG/DL (0.1-1.0)
[2021-10-07 07:06] LABS: CREATININE SERUM 0.85 MG/DL (0.60-1.30)
[2021-10-07 07:08] LABS: MAGNESIUM 1.4 MG/DL (1.6-2.4)
[2021-10-07] MEDS: cefTRIAXone 1 GM PRE-MIX 50 ML IV SCH (08:42)
[2021-10-07] MEDS: PANTOPRAZOLE 40 MG (PROTONIX) VIAL IV SCH ×2 (08:42→19:56)
[2021-10-07] MEDS: OMEGA 3 (FISH OIL) 1000 MG CAP PO SCH ×2 (08:51→16:36)
[2021-10-07] MEDS: MAGNESIUM 1 GM/100 ML IVPB 100 ML IV SCH ×2 (08:58→11:55)
[2021-10-07] MEDS: D5 NS W/KCL 20 MEQ/L 1,000 ML IV SCH (08:58)
[2021-10-07] MEDS ORDERED: OMEPRAZOLE 20 MG (PriLOSEC) CAP NON-FORMULARY PO SCH (09:00)
[2021-10-07] MEDS ORDERED: NON-FORMULARY MEDICATION 1 EA EA (Celecoxib 200 MG) PO SCH (09:00)
[2021-10-07] MEDS: CELECOXIB 100 MG (CeleBREX) CAP PO SCH (09:08)
--- NOTE | 2021-10-07 10:13 | Speech Therapy Progress Note ---
Therapy Progress Note Speech pathology attempted a skilled dysphagia treatment session with the patient at 0955. At this time, the patient remains inappropriate and not deemed safe by speech pathology for P.O. trials due to her inability to display alertness and participation. Regardless of maximum verbal prompting and gentle tactile stimulation of the spoon on the inferior labial surface, the patient does not open the oral cavity or remain with eyes opened. Following a chart review, it appears the patient's family has attempted P.O. bolus trials throughout the weekend, placing the patient at an elevated risk for aspiration. As the patient's alertness decreased, the clinician's recommendation was to place the patient NPO. The clinician visited with the family members present and stated P.O. trials were not safe at this time and should not be attempted. The clinician discussed the NPO recommendation with the patient's RN. The patient's family is concerned of the patient's nutritional status and inquire about feeding tube placement. The patient's family stated placement of a feeding tube would be decided by the patient's spouse. The clinician encouraged the family to begin these discussions if alternative sources of nutrition were desired and met their long-term goals for the patient. Recommendation: - NPO. KEVIN GOYAL Oct 07, 2021 10:13
--- NOTE | 2021-10-07 10:17 | Physical Therapy Daily Note ---
PT Daily Note-Current Mental Status Patient Orientation: Listless Transfers SCALE: Activities may be completed with or without assistive devices. 8-Phkutiyhfc-qlxppmy completes the activity by him/herself with no assistance from a helper. 5-Set-up or Clean-up Assistance-helper sets up or cleans up; patient completes activity. [place] assists only prior to or following the activity. 4-Supervision or Touching Assistance-helper provides verbal cues and/or touching/steadying and/or contact guard assistance as patient completes activity. Assistance may be provided throughout the activity or intermittently. 3-Partial/Moderate Assistance-helper does LESS THAN HALF the effort. [place] lifts, holds or supports trunk or limbs, but provides less than half the effort. 2-Substantial/Maximal Assistance-helper does MORE THAN HALF the effort. [place] lifts or holds trunk or limbs and provides more than half the effort. 2-Bfmzywssf-mmpzlq does ALL the effort. Patient does none of the effort to complete the activity. Or, the assistance of 2 or more helpers is required for the patient to complete the activity. If activity was not attempted, code reason: 7-Patient Refused. 9-Not Applicable-not attempted and the patient did not perform the activity before the current illness, exacerbation or injury. 10-Not Attempted due to Environmental Limitations-(lack of equipment, weather restraints, etc.). 88-Not Attempted due to Medical Conditions or Safety Concerns. Roll Left & Right (QC): 1 (assisted with repositioning patient to side lying right with pillow placement for comfort and to relieve pressure.) Assessment Patient currently not safe for OOB activity due to decline in alertness. Family present. Patient repositioned to side lying right after PCT completed bed bath. PT Driver License Technician Goals Driver License Technician Goals PT Driver License Technician Goals Time Frame: Oct 09, 2021 Roll Left & Right (QC): 2 Sit to Lying (QC): 2 Lying-Sitting on Side/Bed(QC): 2 Sit to Stand (QC): 2 Chair/Syw-ct-Xzqnx Xfer(QC): 2 PT Plan Treatment/Plan Treatment Plan: Continue Plan of Care Treatment Plan: Bed Mobility, Education, Functional Activity Kareen, Functional Strength, Gait, Safety, Therapeutic Exercise, Transfers Treatment Duration: Oct 09, 2021 Frequency: 5 times per week Estimated Hrs Per Day: .25 hour per day Patient and/or Family Agrees t: Yes Time/GCodes Time In: 944 Time Out: 952 Total Billed Treatment Time: 8 Total Billed Treatment 1 visit FA 8 min SEFERINO YAÑEZ PT Oct 07, 2021 10:17
[2021-10-07] MEDS: ASPIRIN E.C. 81 MG (ECOTRIN) TAB PO SCH (10:56)
[2021-10-07] MEDS: amLODIPine 5 MG (NORVASC) TAB PO SCH (10:57)
--- NOTE | 2021-10-07 11:06 | Progress Note - Surgery ---
Subjective Date Seen by a Provider: Oct 07, 2021 Time Seen by a Provider: 08:38 Subjective/Events-last exam Laying in bed. Some family at bedside. Does open eyes. Does not communicate. Moves right upper extremity but not really having any other movement. Grandson at bedside states not eating but a bite or two at all. Objective Exam Vital Signs Date Time Temp Pulse Resp B/P (MAP) Pulse Ox O2 Delivery O2 Flow Rate FiO2 10/07/21 09:00 Room Air 10/07/21 07:29 37.2 69 18 161/78 (105) 97 Room Air 10/07/21 07:00 62 10/07/21 03:50 36.9 69 18 169/74 (105) 97 Room Air 10/07/21 01:00 61 10/07/21 00:59 36.5 77 20 162/65 (97) 96 Room Air 10/06/21 19:51 37.2 78 22 161/74 (103) 97 Room Air 10/06/21 19:37 Room Air 0.00 10/06/21 19:00 83 10/06/21 16:01 37.2 73 20 167/74 (105) 97 Room Air 10/06/21 13:00 80 10/06/21 11:16 37.2 73 20 161/68 (99) 97 Room Air I & O 10/07/21 06:59 Intake Total 1050 ml Output Total 1650 ml Balance -600 ml Capillary Refill : Less Than 3 Seconds General Appearance: No Apparent Distress, WD/WN, Chronically ill HEENT: Normal ENT Inspection; No Moist Mucous Membranes (dry mucous membranes) Neck: Full Range of Motion, Non Tender Respiratory: Chest Non Tender, No Accessory Muscle Use, No Respiratory Distress Cardiovascular: Regular Rate, Rhythm, No JVD Peripheral Pulses: 2+ Carotid (R) Gastrointestinal: non tender, soft Extremity: No Pedal Edema, Other (moving right upper extremity, does not seem to move left) Neurologic/Psychiatric: Alert; No Oriented x3 Skin: Normal Color, Warm/Dry Lymphatic: No Adenopathy Results Lab Laboratory Tests 10/06/21 11:20: Glucometer 133H 10/06/21 17:43: Glucometer 102 10/07/21 00:39: Glucometer 133H 10/07/21 06:33: White Blood Count 7.9, Red Blood Count 2.82L, Hemoglobin 8.3L, Hematocrit 26L, Mean Corpuscular Volume 93, Mean Corpuscular Hemoglobin 29, Mean Corpuscular Hemoglobin Concent 32, Red Cell Distribution Width 15.9H, Platelet Count 132, Mean Platelet Volume 10.1, Immature Granulocyte % (Auto) 1, Neutrophils (%) (Auto) 64, Lymphocytes (%) (Auto) 23, Monocytes (%) (Auto) 8, Eosinophils (%) (Auto) 4, Basophils (%) (Auto) 0, Neutrophils # (Auto) 5.1, Lymphocytes # (Auto) 1.9, Monocytes # (Auto) 0.7, Eosinophils # (Auto) 0.3, Basophils # (Auto) 0.0, Immature Granulocyte # (Auto) 0.1, Sodium Level 137, Potassium Level 3.8, Chloride Level 109H, Carbon Dioxide Level 21, Anion Gap 7, Blood Urea Nitrogen 8, Creatinine 0.85, Estimat Glomerular Filtration Rate 68, BUN/Creatinine Ratio 9, Glucose Level 117H, Calcium Level 7.5L, Corrected Calcium 9.0, Magnesium Level 1.4L, Total Bilirubin 0.5, Aspartate Amino Transf (AST/SGOT) 29, Alanine Aminotransferase (ALT/SGPT) 33, Alkaline Phosphatase 57, Total Protein 4.4L, Albumin 2.1L 10/07/21 06:34: Glucometer 120H Microbiology 10/01/21 Blood Culture - Final, Complete No growth 10/01/21 MRSA Screen - Final, Complete MRSA not isolated 10/01/21 Urine Culture - Final, Complete Escherichia coli Assessment/Plan Assessment/Plan Assessment/Plan GI Bleed, anemia, history of ulcers, failed swallow evaluation did pass on repeat but minimal intake Patient with no interatction that is purposeful with me. Poor nutrition would consider gastrostomy or dobhoff tube, family does not want any gastrostomy tubes or feeding tubes at this time. Protonix Would consider hospice care. Clinical Quality Measures DVT/VTE Risk/Contraindication: Contraindications-Pharm: Other *list below* Other: LEILA Mark DO Oct 07, 2021 11:06
--- NOTE | 2021-10-07 12:38 | Diagnostic Imaging Report ---
CLINICAL INDICATION: Patient having mental status changes. EXAM: MRI of the brain performed without IV contrast. Sequences include sagittal T1, axial T2, axial flair, axial gradient echo, DWI, ADC map, and axial T1. COMPARISON: CT scan of the head, face, and cervical spine without contrast dated 10/01/2021. FINDINGS: There are small focal and patchy areas of elevated DWI signal with normalized to low ADC map signal involving the left cerebellar hemisphere. There is diffusion restriction involving the bilateral occipital lobes, right parietal lobe, and parasagittal and posterior left frontal lobe regions. There is associated increased T2 signal in these areas. There is no intracranial hemorrhage or evidence of hemorrhagic transformation. There is diffuse brain parenchymal volume loss with the temporal lobes affected the most. There is diffuse patchy confluent high T2 signal white matter changes throughout both cerebral hemispheres and small patchy areas involving the estefanía and bilateral cerebellar hemispheres. 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 Again seen are chronic cerebral infarcts involving the lateral posterior right frontal lobe region and inferior right cerebellar hemisphere. There is no hydrocephalus, brain herniation or midline shift. Basal cisterns are unremarkable. The visualized cher[place] of [place] vascular structures are unremarkable. The pituitary gland, sella, and suprasellar regions are unremarkable as visualized. The extracranial soft tissues, skull, and orbits are unremarkable. There is minimal mucosal thickening involving the ethmoid sinus. Mastoid air cells are clear. IMPRESSION: 1: There are small patchy areas of acute/subacute infarcts involving the left cerebellum, bilateral occipital lobes, right parietal lobe, and left frontal lobe regions. There is no evidence of hemorrhagic transformation or brain herniation. 2: There is a chronic ischemic infarct involving the right frontal lobe and right cerebellum. 3: There is diffuse brain parenchymal volume loss with chronic small vessel ischemic disease and leukoaraiosis. Dictated by: Dictated on workstation # [id number]
--- NOTE | 2021-10-07 16:28 | Progress Note ---
Subjective Subjective/Events-last exam Pt remains unresponsive. Discussed current status with and other family members and reviewed her course of illness to date. Objective Exam Last Set of Vital Signs Vital Signs Date Time Temp Pulse Resp B/P (MAP) Pulse Ox O2 Delivery O2 Flow Rate FiO2 10/07/21 16:18 37.3 65 18 143/67 (92) 98 Room Air 10/06/21 19:37 0.00 Capillary Refill : Less Than 3 Seconds I&O Intake and Output 10/07/21 00:00 Intake Total 1050 ml Output Total 1500 ml Balance -450 ml Intake Oral 0 ml IV Total 1050 ml Output Urine Total 1500 ml General: Other (moved eyes and moaned briefly when I moved her arms, lying with both arms flexed at elbows, knees flexed and heels near edge of bed) Lungs: Clear to Auscultation Heart: Regular Rate Extremities: No Edema Results/Procedures Lab Laboratory Tests 10/06/21 17:43: Glucometer 102 10/07/21 00:39: Glucometer 133H 10/07/21 06:33: White Blood Count 7.9, Red Blood Count 2.82L, Hemoglobin 8.3L, Hematocrit 26L, Mean Corpuscular Volume 93, Mean Corpuscular Hemoglobin 29, Mean Corpuscular Hemoglobin Concent 32, Red Cell Distribution Width 15.9H, Platelet Count 132, Mean Platelet Volume 10.1, Immature Granulocyte % (Auto) 1, Neutrophils (%) (Auto) 64, Lymphocytes (%) (Auto) 23, Monocytes (%) (Auto) 8, Eosinophils (%) (Auto) 4, Basophils (%) (Auto) 0, Neutrophils # (Auto) 5.1, Lymphocytes # (Auto) 1.9, Monocytes # (Auto) 0.7, Eosinophils # (Auto) 0.3, Basophils # (Auto) 0.0, Immature Granulocyte # (Auto) 0.1, Sodium Level 137, Potassium Level 3.8, Chloride Level 109H, Carbon Dioxide Level 21, Anion Gap 7, Blood Urea Nitrogen 8, Creatinine 0.85, Estimat Glomerular Filtration Rate 68, BUN/Creatinine Ratio 9, Glucose Level 117H, Calcium Level 7.5L, Corrected Calcium 9.0, Magnesium Level 1.4L, Total Bilirubin 0.5, Aspartate Amino Transf (AST/SGOT) 29, Alanine Aminotransferase (ALT/SGPT) 33, Alkaline Phosphatase 57, Total Protein 4.4L, Albumin 2.1L 10/07/21 06:34: Glucometer 120H 10/07/21 11:39: Glucometer 140H Microbiology 10/01/21 Blood Culture - Final, Complete No growth 10/01/21 MRSA Screen - Final, Complete MRSA not isolated 10/01/21 Urine Culture - Final, Complete Escherichia coli Radiology NAME: CHICA SAHA [facility] REC#: [id number] PT STATUS: REG ER : 1935 PHYSICIAN: YE ESTRELLA MD ADMIT DATE: 10/01/21/ER FS Signed Date of Exam:10/01/21 CHEST 1 VIEW AP/PA ONLY INDICATION: Fall with chest pain, altered mental status. EXAMINATION: A frontal chest was obtained at 8:35 AM. FINDINGS: The heart is borderline enlarged. The mediastinal silhouette is unremarkable. There are some atherosclerotic calcifications at the aortic arch. There is no focal infiltrate, pneumothorax, or pleural fluid. IMPRESSION: Mild cardiomegaly with no acute process in the chest. Dictated by: Dictated on workstation # [id number] Dict: 10/01/21 0843 Trans: 10/01/21 0910 [id number] Interpreted by: ESTEVAN MILLAN MD Electronically signed by: ESTEVAN MILLAN MD 10/01/21 NAME: CHICA SAHA [facility] REC#: [id number] PT STATUS: REG ER : 1935 PHYSICIAN: YE ESTRELLA MD ADMIT DATE: 10/01/21/ER FS Signed Date of Exam:10/01/21 CT HEAD/FACE/CERVICAL WO PROCEDURE: CT head, face, and cervical spine without contrast. TECHNIQUE: Multiple contiguous axial images were obtained through the head, neck, and facial bones without the use of intravenous contrast. Sagittal and coronal reformations through the cervical spine and facial bones were also performed. Auto Exposure Controls were utilized during the CT exam to meet ALARA standards for radiation dose reduction. INDICATION: Multiple falls. Head and neck pain. Abrasion to the forehead. COMPARISON: None. FINDINGS: CT head: Likely chronic areas of ischemia are seen involving the inferior right cerebellum and right frontal lobe. Additional chronic microvascular disease is scattered throughout the periventricular and subcortical white matter. No evidence of acute hemorrhage. The ventricles and cortical sulci are diffusely prominent. The basilar cisterns are clear. The calvarium is intact. CT face: Please note motion artifact somewhat limits evaluation of the mandible. No acute facial fractures are visualized. The mandible, zygomatic arches, and pterygoid plates are intact. The bilateral TMJ demonstrate normal articulation. No nasal bone fractures. The bony nasal septum is midline without fracture. The paranasal sinuses and mastoid air cells are well pneumatized. The globes and orbits are symmetric and unremarkable. No evidence of orbital rim fracture. CT cervical spine: No acute fracture or dislocation is seen in the cervical spine. No focal osseous lesions. There is straightening of the cervical spine. Grade 1 anterolisthesis of C3 on C4 is noted. Vertebral body heights are well-maintained. The craniocervical junction is well-maintained. Degenerative changes are seen in the cervical spine with disc height loss, disc osteophyte complexes, and uncovertebral arthropathy. No evidence of acute spinal canal stenosis. Soft tissues of the neck are unremarkable. The included lung apices are clear. IMPRESSION: 1. Likely chronic areas of ischemia involving the inferior right cerebellum and right frontal lobe. If indicated, further evaluation with MRI brain may be considered. 2. No acute fracture or dislocation in the cervical spine. 3. No acute facial fractures. Please note motion artifact somewhat limits evaluation of the mandible. 4. 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 5. No acute hemorrhage. 6. Straightening of the cervical spine with grade 1 anterolisthesis of C3 on C4. Dictated by: Dictated on workstation # [id number] Dict: 10/01/21 0838 Trans: 10/01/21 0849 [id number] Interpreted by: MERLENE WINSLOW DO Electronically signed by: MERLENE WINSLOW DO 10/01/21 0849 Assessment/Plan Assessment/Plan (1) Acute GI bleeding Status: Acute Assessment & Plan: Suspected GI bleed on admission based on dark vomit, hemoglobin below 5. Hemoglobin has remained stable after transfusion. Surgery following, appreciate recommendations. (2) Anemia due to GI blood loss Status: Acute Assessment & Plan: s/p 2 units PRBCs. (3) Elevated lactic acid level Status: Acute Assessment & Plan: Markedly elevated lactic acid initially, uncertain whether due to sepsis or other cause. UTI treated. Repeat level. 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 At baseline, difficult to tell functional level, per , she was able to ambulate, she was requiring assistance with feeding and hygiene and per family speech was often not meaningful, although she was saying clear words, for example would often say "help me", but they note she did respond more meaningfully to her . (5) Troponin level elevated Status: Acute Assessment & Plan: Suspect type II MS due to strain related to severe anemia, Cardiology consulted, appreciate recommendations. (6) Primary hypertension Status: Chronic (7) Mixed hyperlipidemia Status: Chronic (8) Urinary tract infection Status: Resolved Assessment & Plan: E coli, completed treatment with ceftriaxone. (9) Sepsis Status: Acute Assessment & Plan: s/p treatment with ceftriaxone, WBC normalized and AMBIKA resolved. Qualifiers: (10) Coronary artery disease without angina pectoris Status: Chronic (11) Acute kidney insufficiency Status: Resolved Assessment & Plan: On admit, secondary to hypovolemia and/or sepsis, resolved with antibiotics and IVF. (12) Altered mental status Status: Acute Assessment & Plan: CT head on admit without acute bleed or clear new stroke. 10/07/21 Unable to elicit any meaningful repsonses this morning, discussed with family at bedside. Her is holding on to hope that since the GI bleed appears to be stopped, she will return to her previous state of functioning or near that. He is anxious that she should get more movement with PT, discussed that they cannot do much when she is unresponsive. Family had started looking into hospice prior to admission, and he does continue to discuss that, he does think that hospice will continue her IV fluids at home, discussed that is not typical. Will obtain MRI today to further delineate whether more stroke has occurred, etc, given family report that on Thursday she was speaking more and then went unresponsive again, and they also note she is not moving left side much at all and that her face may be drooping on the right. Will continue to discuss disposition planning after MRI results available. Qualifiers: Qualified Codes: R40.0 - Somnolence Clinical Quality Measures DVT/VTE Risk/Contraindication: Contraindications-Pharm: Other *list below* Other: SILVANA Thorpe MD Oct 07, 2021 16:28
[2021-10-07] MEDS: MULTIVIT W/MINERALS TAB (THERAGRAN M) PO SCH (16:36)
[2021-10-07] MEDS: DONEPEZIL 10 MG (ARICEPT) TAB PO SCH (19:48)
[2021-10-07] MEDS: NITROGLYCERIN 2% OINT 1 GM UNIT DOSE PACKET TOP PRN (19:56)
[2021-10-08] VITALS (8 sets, daily range): BP systolic 130–178; BP diastolic 60–75
[2021-10-08] MEDS: hydrALAZINE (APESOLINE) 20 MG/ML VIAL IV PRN ×2 (00:42→15:55)
[2021-10-08] MEDS: D5 NS W/KCL 20 MEQ/L 1,000 ML IV SCH ×2 (03:50→18:22)
--- NOTE | 2021-10-08 05:41 | Progress Note - Hospitalist ---
Subjective HPI/CC On Admission Date Seen by Provider: Oct 08, 2021 Time Seen by Provider: 10:00 CC: GI Bleed with Hypotension HPI: This is a pt of [facility]. Pt presented from [place] ER with severe GI bleed with coffee ground emesis and lower GI bleed. Her hemoglobin was 4.2. She was hypotensive, improved with IV fluids. She remains a DNR. She lives at home with her who has taken care of her since the stroke. Upon assessment she appeared to be very frail, very declined, and very altered. I did have a long conversation with and daughter and multiple questions answered. We will try to provide blood transfusion and support, but she could very well pass away. PICC line will be placed. Dr. Gallardo and Dr. Newell both consulted for GI bleed and elevated troponin respectively. Subjective/Events-last exam Pt mostly unresponsive Family is thinking about putting a feeding tube in, which I feel would be more harm than benefit Overall doing about the same Labs remain stable Pt not alert MRI showed multiple strokes so I did update the family No ability to manage the strokes due to massive GI bleed, wouldn't be able to withstand any anticoagulation or aspirin therapy Review of Systems Neurological: Confusion Focused Exam Lactate Level 10/07/21 17:50: Lactic Acid Level 0.84 Objective Exam Vital Signs Vital Signs Date Time Temp Pulse Resp B/P (MAP) Pulse Ox O2 Delivery O2 Flow Rate FiO2 10/08/21 20:07 37.6 87 24 169/65 (99) 96 Room Air 10/06/21 19:37 0.00 Capillary Refill : Less Than 3 Seconds General Appearance: No Apparent Distress, WD/WN, Chronically ill Respiratory: Lungs Clear, Normal Breath Sounds Cardiovascular: Regular Rate, Rhythm Neurologic/Psychiatric: Disoriented Results/Procedures Lab Laboratory Tests 10/08/21 06:12 Patient resulted labs reviewed. Assessment/Plan Assessment and Plan Assess & Plan/Chief Complaint Assessment: Hypotension GIB Severe anemia Prior CVA Subacute CVA's Chronic debility AMBIKA Elevated troponin h/o HTN HLP Dysphagia Plan: ICU Transfuse Dr Gallardo consult Dr Newell consult DNR Very grave prognosis 10/02: Transfer to 4th floor Change full code to DNR at family request 10/03: ST eval swallowing PT OT Needs end of life care 10/04: Pureed diet Thickened liquids Needs end of life care 10/05: Continue supportive care Needs end-of-life care 10/06: Continue supportive care Needs end-of-life care 10/08/21: Monitor closely Needs Hospice Diagnosis/Problems Diagnosis/Problems (1) Acute GI bleeding Status: Acute (2) Dehydration Status: Acute (3) Non-ST elevated myocardial infarction Status: Acute (4) Anemia due to GI blood loss Status: Acute (5) Elevated lactic acid level Status: Acute (6) Cerebrovascular accident (CVA) involving right cerebral hemisphere Status: Chronic Clinical Quality Measures DVT/VTE Risk/Contraindication: Contraindications-Pharm: Other *list below* Other: HANS Han DO Oct 08, 2021 05:41
[2021-10-08 06:31] LABS: BASOPHILS % (AUTO) 0 % (0-10); EOSINOPHILS # (AUTO) 0.3 10^3/uL (0.0-0.3); EOSINOPHILS % (AUTO) 4 % (0-10); HEMATOCRIT 26 % (35-52); HEMOGLOBIN 8.3 g/dL (11.5-16.0); LYMPHOCYTES # (AUTO) 1.7 10^3/uL (1.0-4.0); LYMPHOCYTES % (AUTO) 23 % (12-44); MEAN CORPUSCULAR HEMOGLOBIN 29 pg (25-34); MEAN CORPUSCULAR HGB CONC 32 g/dL (32-36); MEAN CORPUSCULAR VOLUME 92 fL (80-99); MEAN PLATELET VOLUME 10.2 fL (9.0-12.2); MONOCYTES # (AUTO) 0.6 10^3/uL (0.0-1.0); MONOCYTES % (AUTO) 8 % (0-12); NEUTROPHILS # (AUTO) 4.7 10^3/uL (1.8-7.8); NEUTROPHILS % (AUTO) 64 % (42-75); PLATELET COUNT 158 10^3/uL (130-400); WHITE BLOOD COUNT 7.3 10^3/uL (4.3-11.0)
[2021-10-08 06:50] LABS: ALBUMIN 2.2 GM/DL (3.2-4.5); POTASSIUM 3.9 MMOL/L (3.6-5.0)
[2021-10-08] MEDS: SUCRALFATE 1 GM (CARAFATE) TAB PO SCH ×4 (06:50→21:00)
[2021-10-08 06:52] LABS: CALCIUM 7.4 MG/DL (8.5-10.1)
[2021-10-08 06:53] LABS: TOTAL PROTEIN 4.7 GM/DL (6.4-8.2)
[2021-10-08 06:55] LABS: BILIRUBIN,TOTAL 0.4 MG/DL (0.1-1.0)
[2021-10-08 06:56] LABS: CREATININE SERUM 0.92 MG/DL (0.60-1.30)
[2021-10-08 06:59] LABS: MAGNESIUM 2.1 MG/DL (1.6-2.4)
[2021-10-08] MEDS: OMEGA 3 (FISH OIL) 1000 MG CAP PO SCH ×2 (08:00→17:07)
[2021-10-08] MEDS: ASPIRIN E.C. 81 MG (ECOTRIN) TAB PO SCH (08:06)
[2021-10-08] MEDS: CELECOXIB 100 MG (CeleBREX) CAP PO SCH (08:06)
[2021-10-08] MEDS: amLODIPine 5 MG (NORVASC) TAB PO SCH (08:08)
[2021-10-08] MEDS: PANTOPRAZOLE 40 MG (PROTONIX) VIAL IV SCH ×2 (08:58→20:47)
[2021-10-08] MEDS: NITROGLYCERIN 2% OINT 1 GM UNIT DOSE PACKET TOP PRN (08:58)
--- NOTE | 2021-10-08 11:30 | Physical Therapy Daily Note ---
PT Daily Note-Current Subjective Family is very insistent to have PT work with and stand patient. Mental Status Patient Orientation: Listless Transfers SCALE: Activities may be completed with or without assistive devices. 7-Vpkygsjpmv-klckjpb completes the activity by him/herself with no assistance from a helper. 5-Set-up or Clean-up Assistance-helper sets up or cleans up; patient completes activity. [place] assists only prior to or following the activity. 4-Supervision or Touching Assistance-helper provides verbal cues and/or t ouching/steadying and/or contact guard assistance as patient completes activity. Assistance may be provided throughout the activity or intermittently. 3-Partial/Moderate Assistance-helper does LESS THAN HALF the effort. [place] lifts, holds or supports trunk or limbs, but provides less than half the effort. 2-Substantial/Maximal Assistance-helper does MORE THAN HALF the effort. [place] lifts or holds trunk or limbs and provides more than half the effort. 8-Kizkegpus-jywxtq does ALL the effort. Patient does none of the effort to complete the activity. Or, the assistance of 2 or more helpers is required for the patient to complete the activity. If activity was not attempted, code reason: 7-Patient Refused. 9-Not Applicable-not attempted and the patient did not perform the activity before the current illness, exacerbation or injury. 10-Not Attempted due to Environmental Limitations-(lack of equipment, weather restraints, etc.). 88-Not Attempted due to Medical Conditions or Safety Concerns. Roll Left & Right (QC): 1 Sit to Lying (QC): 1 Lying to Sitting/Side of Bed(Q: 1 Sit to Stand (QC): 1 (blocked bilateral knees) Exercises Supine Ex: Ankle pumps, Heel Slides, Straight leg raise Supine Reps: 15 (PROM) Assessment Patient continues to be very lethargic and unable to actively participate with skilled PT. Patient does react to standing by spitting on PT and grunting. Patient returned to slight side lying right with pillow placement all dependent assist of 2. PT [employer] Goals [facility] Goals PT [employer] Goals Time Frame: Oct 09, 2021 Roll Left & Right (QC): 2 Sit to Lying (QC): 2 Lying-Sitting on Side/Bed(QC): 2 Sit to Stand (QC): 2 Chair/Jus-hz-Itmfu Xfer(QC): 2 PT Plan Treatment/Plan Treatment Plan: Continue Plan of Care Treatment Plan: Bed Mobility, Education, Functional Activity Kareen, Functional Strength, Gait, Safety, Therapeutic Exercise, Transfers Treatment Duration: Oct 09, 2021 Frequency: 5 times per week Estimated Hrs Per Day: .25 hour per day Patient and/or Family Agrees t: Yes Time/GCodes Time In: 1027 Time Out: 1043 Total Billed Treatment Time: 16 Total Billed Treatment 1 visit EX 16 min SEFERINO YAÑEZ PT Oct 08, 2021 11:30
--- NOTE | 2021-10-08 16:20 | Progress Note - Surgery ---
Subjective Date Seen by a Provider: Oct 08, 2021 Time Seen by a Provider: 14:08 Subjective/Events-last exam Patient family at bedside. Patient laying in bed. Does open eyes but no purposeful discussion or words. Patient failed swallow eval and currently NPO. Patient family has been discussing hospice care. They understand why she cannot eat. They are wanting to go home on hospice. Patient hemoglobin stable. Focused Exam Lactate Level 10/07/21 17:50: Lactic Acid Level 0.84 Objective Exam Vital Signs Date Time Temp Pulse Resp B/P (MAP) Pulse Ox O2 Delivery O2 Flow Rate FiO2 10/08/21 15:21 37.7 77 16 178/73 (108) 97 Room Air 10/08/21 13:19 68 10/08/21 12:11 36.8 69 16 161/65 (97) 99 Room Air 10/08/21 09:00 Room Air 10/08/21 07:46 37.1 75 16 177/68 (104) 97 Room Air 10/08/21 07:26 74 10/08/21 03:43 37.2 70 18 149/65 (93) 97 Room Air 10/08/21 01:00 76 10/08/21 00:37 36.6 71 18 178/74 (108) 96 Room Air 10/07/21 21:25 37.7 154/80 (104) 10/07/21 20:00 Room Air 10/07/21 19:43 37.8 67 16 179/72 (107) 97 Room Air 10/07/21 19:00 60 10/07/21 16:18 37.3 65 18 143/67 (92) 98 Room Air I & O 10/08/21 07:00 Intake Total 0 ml Output Total 1100 ml Balance -1100 ml Capillary Refill : Less Than 3 Seconds General Appearance: No Apparent Distress, Chronically ill HEENT: Normal ENT Inspection; No Moist Mucous Membranes (dry mucous membranes) Neck: Full Range of Motion, Non Tender Respiratory: Chest Non Tender, No Accessory Muscle Use, No Respiratory Distress Cardiovascular: Regular Rate, Rhythm, No JVD Peripheral Pulses: 2+ Carotid (R) Gastrointestinal: non tender, soft Extremity: No Pedal Edema, Other (moving right upper extremity, does not seem to move left, but no overall purposeful movement) Neurologic/Psychiatric: Alert; No Oriented x3 Skin: Normal Color, Warm/Dry Lymphatic: No Adenopathy Results Lab Laboratory Tests 10/07/21 17:27: Glucometer 135H 10/07/21 17:50: Lactic Acid Level 0.84 10/08/21 00:35: Glucometer 132H 10/08/21 06:11: Glucometer 122H 10/08/21 06:12: White Blood Count 7.3, Red Blood Count 2.86L, Hemoglobin 8.3L, Hematocrit 26L, Mean Corpuscular Volume 92, Mean Corpuscular Hemoglobin 29, Mean Corpuscular Hemoglobin Concent 32, Red Cell Distribution Width 15.3H, Platelet Count 158, Mean Platelet Volume 10.2, Immature Granulocyte % (Auto) 1, Neutrophils (%) (Auto) 64, Lymphocytes (%) (Auto) 23, Monocytes (%) (Auto) 8, Eosinophils (%) (Auto) 4, Basophils (%) (Auto) 0, Neutrophils # (Auto) 4.7, Lymphocytes # (Auto) 1.7, Monocytes # (Auto) 0.6, Eosinophils # (Auto) 0.3, Basophils # (Auto) 0.0, Immature Granulocyte # (Auto) 0.1, Sodium Level 137, Potassium Level 3.9, Chloride Level 110H, Carbon Dioxide Level 21, Anion Gap 6, Blood Urea Nitrogen 7, Creatinine 0.92, Estimat Glomerular Filtration Rate 61, BUN/Creatinine Ratio 8, Glucose Level 110H, Calcium Level 7.4L, Corrected Calcium 8.8, Magnesium L evel 2.1, Total Bilirubin 0.4, Aspartate Amino Transf (AST/SGOT) 27, Alanine Aminotransferase (ALT/SGPT) 31, Alkaline Phosphatase 54, Total Protein 4.7L, Albumin 2.2L 10/08/21 12:10: Glucometer 126H Microbiology 10/01/21 Blood Culture - Final, Complete No growth 10/01/21 MRSA Screen - Final, Complete MRSA not isolated 10/01/21 Urine Culture - Final, Complete Escherichia coli Assessment/Plan Assessment/Plan Assessment/Plan GI Bleed, anemia, history of ulcers, failed swallow evaluation Patient with no interatction that is purposeful with me. Poor nutrition would consider gastrostomy or dobhoff tube, family does not want any gastrostomy tubes or feeding tubes at this time. Protonix Over an hour long discussion with family discussing options. We discussed that due to continued failed swallow evaluation would not recommend p.o. intake. We discussed gastrostomy tube or Dobbhoff tube which also has risk of aspiration or possible infection. Also having these removed by patient would be a pos sibility. They do not want these options. They would like to go home on hospice and are hopeful that she will recuperate better and get back to her normal self. I did discuss with patient's that due to her declining recently at home with her having discussions of hospice prior to admission and with her decline in the hospital I feel that she is in the end of life care ne eds. Patient's daughter and son are present at bedside and understand current overall care needs. Patient has been is talking with hospice later today. I will sign off please call if needed. Clinical Quality Measures DVT/VTE Risk/Contraindication: Contraindications-Pharm: Other *list below* Other: LEILA Mark DO Oct 08, 2021 16:20
[2021-10-08] MEDS: MULTIVIT W/MINERALS TAB (THERAGRAN M) PO SCH (17:00)
[2021-10-08] MEDS: DONEPEZIL 10 MG (ARICEPT) TAB PO SCH (21:00)
[2021-10-09 03:24] VITALS: BP 135/80
[2021-10-09 04:57] LABS: BASOPHILS % (AUTO) 1 % (0-10); EOSINOPHILS # (AUTO) 0.2 10^3/uL (0.0-0.3); EOSINOPHILS % (AUTO) 4 % (0-10); HEMATOCRIT 26 % (35-52); HEMOGLOBIN 8.1 g/dL (11.5-16.0); LYMPHOCYTES # (AUTO) 1.8 10^3/uL (1.0-4.0); LYMPHOCYTES % (AUTO) 27 % (12-44); MEAN CORPUSCULAR HEMOGLOBIN 30 pg (25-34); MEAN CORPUSCULAR HGB CONC 32 g/dL (32-36); MEAN CORPUSCULAR VOLUME 93 fL (80-99); MEAN PLATELET VOLUME 9.7 fL (9.0-12.2); MONOCYTES # (AUTO) 0.6 10^3/uL (0.0-1.0); MONOCYTES % (AUTO) 10 % (0-12); NEUTROPHILS # (AUTO) 3.9 10^3/uL (1.8-7.8); NEUTROPHILS % (AUTO) 59 % (42-75); PLATELET COUNT 185 10^3/uL (130-400); WHITE BLOOD COUNT 6.6 10^3/uL (4.3-11.0)
[2021-10-09 05:17] LABS: ALBUMIN 2.2 GM/DL (3.2-4.5)
[2021-10-09 05:18] LABS: CALCIUM 7.5 MG/DL (8.5-10.1)
[2021-10-09 05:19] LABS: TOTAL PROTEIN 4.7 GM/DL (6.4-8.2)
[2021-10-09 05:21] LABS: BILIRUBIN,TOTAL 0.5 MG/DL (0.1-1.0)
[2021-10-09 05:23] LABS: CREATININE SERUM 0.92 MG/DL (0.60-1.30)
[2021-10-09 05:26] LABS: MAGNESIUM 1.8 MG/DL (1.6-2.4)
[2021-10-09] MEDS: SUCRALFATE 1 GM (CARAFATE) TAB PO SCH ×2 (06:43→07:37)
[2021-10-09] MEDS: CELECOXIB 100 MG (CeleBREX) CAP PO SCH (07:36)
[2021-10-09] MEDS: OMEGA 3 (FISH OIL) 1000 MG CAP PO SCH ×2 (07:36→07:37)
[2021-10-09] MEDS: amLODIPine 5 MG (NORVASC) TAB PO SCH (07:37)
[2021-10-09] MEDS: MULTIVIT W/MINERALS TAB (THERAGRAN M) PO SCH (07:37)
[2021-10-09] MEDS: ASPIRIN E.C. 81 MG (ECOTRIN) TAB PO SCH (07:37)
[2021-10-09] MEDS: PANTOPRAZOLE 40 MG (PROTONIX) VIAL IV SCH (08:09)
[2021-10-09] MEDS: D5 NS W/KCL 20 MEQ/L 1,000 ML IV SCH (08:09)
[2021-10-09 08:30] VITALS: BP 140/84
--- NOTE | 2021-10-09 10:13 | Speech Therapy Daily Note ---
Speech Daily Progress Note Subjective Date Seen by Provider: Oct 09, 2021 Time Seen by Provider: 08:10 The patient was lying in bed, eyes minimally opened and verbally moaning upon entrance to her room by the clinician. The clinician positioned herself next to the bed and provided verbal support and gentle tactile stimulation (hand holding) to visually calm the patient. The patient made eye contact with the clinician, however, not purposeful communication occurred. The patient was positioned upright for safe swallowing position. The patient's son was present at bedside and remained throughout the re- evaluation. Objective The clinician attempted introduction of a moist swab, a half teaspoon of water (thin liquid), and a straw with thin liquid. The patient does not accept any presentation of P.O. bolus material regardless of gentle support, tactile stimulation to the oral cavity, or verbal prompting. Throughout the treatment session, the patient begins to "swat" at the clinician, forcing the clinician's hand away from her oral cavity. Due to consistent inability or refusal to accept the P.O. bolus, the clinician provided moisture to the exterior lips with a lip moisturizer. The clinician was able to minimally cleanse the interior buccal area with a gloved finger and moisturizer. Following moisturizer, the clinician re-attempted P.O. bolus trials, however, was unsuccessful. The clinician visited with the patient's son extensively regarding the patient's regression and current status. The patient's son stated he believes his father may have misunderstood the discussion regarding a feeding tube and would like to re-visit the topic with the physician and RN. Following the clinician's session, the clinician discussed the patient's son's questions with the palliative care RN and offered any additional information and assistance towards patient education. At this time, the clinician will monitor the patient on a PRN status, completing additional treatment if an improvement in alertness is present. The clinician shared the recommendations of NPO with the patient's son. The clinician encouraged no P.O. intake from family members due to aspiration risk and continued oral care when able. The patient's son verbalized comprehension. Assessment Assessment Current Status: Regressing Treatment Plan Continue Plan of Care Speech Short Term Goals Short Term Goals Short Term Goals 1. The patient will participate in P.O. trials of the least restrictive diet consistency without s/s of suspected aspiration. Time Frame-STG: Four Days. Speech Retirement Goals Variety Saw Operator Goals 1. The patient will tolerate the least restrictive diet consistency without s/s of suspected aspiration. Time Frame: One week. Speech-Plan Treatment Plan Speech Therapy Treatment Plan: Modify Plan, See Comments Treatment Duration: Oct 10, 2021 Frequency: 1 time per week (The patient will be followed on a PRN status.) Estimated Hrs Per Day: .25 hour per day Rehab Potential: Poor Safety Risks/Education Teaching Recipient: Patient, Family Teaching Methods: Discussion Response to Teaching: Verbalize Understanding, Reinforcement Needed Education Topics Provided: Oropharyngeal Swallow Recommendations Time Speech Therapy Time In: 08:10 Speech Therapy Time Out: 08:45 Total Billed Time: 35 Billed Treatment Time 1, DYST KEVIN Larose Oct 09, 2021 10:13
[2021-10-09 12:00] VITALS: BP 158/60
--- NOTE | 2021-10-09 12:31 | Discharge Inst-Skilled Nursing ---
Discharge Inst-Skilled NF Patient Instructions Patient Problems: History of CVA Dementia Consult/Follow Up/Orders Skilled NF Admit to: Certifications SNF I certify that SNF services are required to be given on an inpatient basis because of the above named patient's need for fci care on a continuing basis for the conditions(s) for which he/she was receiving inpatient hospital services prior to his/her transfer to the SNF. Assisted Facility Order: Nursing Services, Hospital Laboratory Technician-Evaluate & Treat, Physical Therapy-Evaluate & Treat, Speech Language-Evaluate & Treat Oxygen Delivery Method: Room Air Discharge Diet: Other Diet (NPO) Daily Activity as Tolerated: Yes Discharge Medications Silvana Trevino Oct 09, 2021 12:30 SILVANA TREVINO MD Oct 09, 2021 12:31
--- NOTE | 2021-10-09 14:36 | Discharge Summary ---
Discharge Summary Hospital Course Problems/Diagnosis: (1) Acute GI bleeding Status: Resolved Resolution Date/Time: 10/09/21 @ 14:23 Assessment & Plan: Suspected GI bleed on admission based on dark vomit, hemoglobin below 5 on admit. Hemoglobin has remained stable after transfusion in the 8s. Surgery followed during stay, no scopes done due to stabilized hemoglobin and severity of illness overall. (2) Anemia due to GI blood loss Status: Acute Assessment & Plan: s/p 2 units PRBCs. (3) Elevated lactic acid level Status: Resolved Resolution Date/Time: 10/07/21 @ 14:24 Assessment & Plan: Markedly elevated lactic acid initially, uncertain whether due to sepsis or other cause. UTI treated. Repeat level on 10/07 normal. 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 At baseline, difficult to tell functional level, per , she was able to ambulate, she was requiring assistance with feeding and hygiene and per family speech was often not meaningful, although she was saying clear words, for example would often say "help me", but they note she did respond more meaningfully to her . (5) Troponin level elevated Status: Acute Assessment & Plan: Suspect type II [place] due to strain related to severe anemia, Cardiology consulted, no interventions recommended. (6) Primary hypertension Status: Chronic (7) Mixed hyperlipidemia Status: Chronic (8) Urinary tract infection Status: Resolved Resolution Date/Time: 10/07/21 @ 16:34 Assessment & Plan: E coli, completed treatment with ceftriaxone. (9) Sepsis Status: Acute Assessment & Plan: s/p treatment with ceftriaxone, WBC normalized and AMBIKA resolved. Qualifiers: (10) Coronary artery disease without angina pectoris Status: Chronic (11) Acute kidney insufficiency Status: Resolved Resolution Date/Time: 10/07/21 @ 16:37 Assessment & Plan: On admit, secondary to hypovolemia and/or sepsis, resolved with antibiotics and IVF. (12) Altered mental status Status: Acute Assessment & Plan: CT head on admit without acute bleed or clear new stroke, in spite of this had significant somnolence and minimal responsiveness throughout stay. On 10/07/21, the first day I saw patient, I was unable to elicit any meaningful responses, discussed with family at bedside. Her is holding on to hope that since the GI bleed appears to be stopped, she will return to her previous state of functioning or near that. He is anxious that she should get more movement with PT, and I discussed that they cannot do much when she is unresponsive. Family had started looking into hospice prior to admission, and he does continue to discuss that, he does think that hospice will continue her IV fluids at home, discussed that is not typical. In light of this, we decided to obtain MRI to further delineate whether more stroke has occurred, etc, given family report that on Thursday she was speaking more and then went unresponsive again, and they also noted she was not moving left side much at all and that her face may be drooping on the right. MRI showed small patchy areas of acute/subacute infarcts involving left cerebellum, bilateral occipital lobes, right parietal lobe and left frontal lobe regions, no evidence of hemorrhagic transformation, chronic ischemic infarct in right frontal and right cerebellum and diffuse brain parenchymal volume loss with chronic small vessel ischemic disease and leukoaraiosis. On the day of discharge, she continued to have no meaningful response on my exam, and her requested a trial of long-term to see if she may still return to baseline and she was discharged to long-term facility. She remained NPO due to inability to swallow, and they did not want to pursue feeding tube at this time, Surgery discussed at length with them, and I also discussed the risks vs benefits with them and that if she did not have any improvement in her clinical status, I did not feel that feeding tube would be in her best interest, but certainly that decision is for her to make if he chooses to proceed at a later time. Qualifiers: Qualified Codes: R40.0 - Somnolence Hospital Course Date of Admission: Oct 01, 2021 at 10:25 Admission Diagnosis : Family Physician/Provider: Date of Discharge: 10/09/21 Discharge Diagnosis: See problem list Hospital Course: See problem list Labs and Pending Lab Test: Laboratory Tests 10/08/21 18:39: Glucometer 129H 10/08/21 23:51: Glucometer 117H 10/09/21 04:45: White Blood Count 6.6, Red Blood Count 2.75L, Hemoglobin 8.1L, Hematocrit 26L, Mean Corpuscular Volume 93, Mean Corpuscular Hemoglobin 30, Mean Corpuscular Hemoglobin Concent 32, Red Cell Distribution Width 15.5H, Platelet Count 185, Mean Platelet Volume 9.7, Immature Granulocyte % (Auto) 0, Neutrophils (%) (Auto) 59, Lymphocytes (%) (Auto) 27, Monocytes (%) (Auto) 10, Eosinophils (%) (Auto) 4, Basophils (%) (Auto) 1, Neutrophils # (Auto) 3.9, Lymphocytes # (Auto) 1.8, Monocytes # (Auto) 0.6, Eosinophils # (Auto) 0.2, Basophils # (Auto) 0.0, Immature Granulocyte # (Auto) 0.0, Sodium Level 139, Potassium Level 4.0, Chloride Level 109H, Carbon Dioxide Level 19L, Anion Gap 11, Blood Urea Nitrogen 5L, Creatinine 0.92, Estimat Glomerular Filtration Rate 61, BUN/Creatinine Ratio 5, Glucose Level 116H, Calcium Level 7.5L, Corrected Calcium 8.9, Magnesium Level 1.8, Total Bilirubin 0.5, Aspartate Amino Transf (AST/SGOT) 22, Alanine Aminotransferase (ALT/SGPT) 27, Alkaline Phosphatase 54, Total Protein 4.7L, Albumin 2.2L 10/09/21 05:37: Glucometer 133H 10/09/21 12:25: Glucometer 114H Microbiology 10/01/21 Blood Culture - Final, Complete No growth 10/01/21 MRSA Screen - Final, Complete MRSA not isolated 10/01/21 Urine Culture - Final, Complete Escherichia coli Home Meds Active Reported Lidocaine 5% Patch (Lidocaine) 5 % Adh..patch 1 Patch TD DAILY PRN APPLY TO LOWER BACK Assessment/Pt DC Instructions Follow up with Dr. Pérez via [facility]. Activity as Tolerated: Yes Discharge Physical Examination Allergies: Coded Allergies: amoxicillin (Verified Allergy, Unknown, 10/24/16) citalopram (Verified Allergy, Unknown, 10/24/16) diltiazem (Verified Allergy, Unknown, 10/24/16) gluten (Verified Allergy, Unknown, RASH, 10/24/16) hydrochlorothiazide (Verified Allergy, Unknown, 10/24/16) nitrofurantoin (Verified Allergy, Unknown, 10/24/16) quinapril (Verified Allergy, Unknown, 10/24/16) sertraline (Verified Allergy, Unknown, 10/24/16) triamterene (Verified Allergy, Unknown, 10/24/16) General Appearance: Other (somnolent, did not respond to voice or touch) Respiratory: Lungs Clear Cardiovascular: Regular Rate, Rhythm Gastrointestinal: Normal Bowel Sounds Skin: Warm/Dry Neurologic/Psychiatric: Other (no verbal or eye movement response to touch or voice) Copy Copies To 1: SELF,DAMASO LARSON Clinical Quality Measures DVT/VTE Risk/Contraindication: Contraindications-Pharm: Other *list below* Other: SILVANA Thorpe MD Oct 09, 2021 14:32
--- NOTE | 2021-10-09 15:02 | Physical Therapy Daily Note ---
PT Daily Note-Current Subjective Patient in bed pre tx, doesn't communicate, moans, nursing just cleaned up BM, family would like patient to participate in PT before she leaves. Appearance Patient in bed post tx with nurse call, phone, tray, family in room. Mental Status Patient Orientation: Unable to Assess, Non-Verbal/Aphasic, Unresponsive, Mumbles Attachments: Mills Catheter, IV Transfers SCALE: Activities may be completed with or without assistive devices. 4-Wdkhoqhwby-cqrpeob completes the activity by him/herself with no assistance from a helper. 5-Set-up or Clean-up Assistance-helper sets up or cleans up; patient completes activity. Star assists only prior to or following the activity. 4-Supervision or Touching Assistance-helper provides verbal cues and/or touching/steadying and/or contact guard assistance as patient completes activity. Assistance may be provided throughout the activity or intermittently. 3-Partial/Moderate Assistance-helper does LESS THAN HALF the effort. Star lifts, holds or supports trunk or limbs, but provides less than half the effort. 2-Substantial/Maximal Assistance-helper does MORE THAN HALF the effort. Star lifts or holds trunk or limbs and provides more than half the effort. 9-Lywukpixx-yaevnt does ALL the effort. Patient does none of the effort to complete the activity. Or, the assistance of 2 or more helpers is required for the patient to complete the activity. If activity was not attempted, code reason: 7-Patient Refused. 9-Not Applicable-not attempted and the patient did not perform the activity before the current illness, exacerbation or injury. 10-Not Attempted due to Environmental Limitations-(lack of equipment, weather restraints, etc.). 88-Not Attempted due to Medical Conditions or Safety Concerns. Roll Left & Right (QC): 1 Sit to Lying (QC): 1 Lying to Sitting/Side of Bed(Q: 1 Sit to Stand (QC): 1 Patient supine to sit with dependence, sit to stand dependent, patient doesn't bear any weight through her legs, therapist blocks knees to prevent falling, attempted to stand twice with the same result, sit to supine dependent, patient has had another BM, assist nurse aide to roll to clean and get new gown on. Treatments sitting, attempted standing Assessment Current Status: Poor Progress no progress with functional mobility PT Care Home Goals Coil Spring Assembler Goals PT Care Home Goals Time Frame: Oct 09, 2021 Roll Left & Right (QC): 2 Sit to Lying (QC): 2 Lying-Sitting on Side/Bed(QC): 2 Sit to Stand (QC): 2 Chair/Koz-jd-Szigw Xfer(QC): 2 PT Plan Problem List Problem List: Activity Tolerance, Functional Strength, Safety, Balance, Gait, Transfer, Bed Mobility, ROM Treatment/Plan Treatment Plan: Continue Plan of Care Treatment Plan: Bed Mobility, Education, Functional Activity Kareen, Functional Strength, Gait, Safety, Therapeutic Exercise, Transfers Treatment Duration: Oct 09, 2021 Frequency: 5 times per week Estimated Hrs Per Day: .25 hour per day Patient and/or Family Agrees t: Yes Safety Risks/Education Patient Education: Correct Positioning, Safety Issues Teaching Recipient: Patient Teaching Methods: Demonstration, Discussion Response to Teaching: Reinforcement Needed Time/GCodes Time In: 1440 Time Out: 1453 Total Billed Treatment Time: 13 Total Billed Treatment 1 visit FA JOSE ALCARAZ PT Oct 09, 2021 15:02
[2021-10-09 15:40] VITALS: BP 143/79
--- NOTE | 2021-10-10 12:20 | Physician Query Clarification ---
PQ-Further Specificity Admission/Discharge Admission Date: Oct 01, 2021 at 10:25 Discharge Date: Oct 09, 2021 at 16:37 Dr. Trevino, The medical record reflects the following clinical scenario: History/Risk Factors: GIB, UTI, Sepsis Clinical Findings: Hgb/Hct 4.2/14.1, WBC 21.5, Lactic 7.95, T 36.1, P 91, urine culture >100,000 E. Coli Treatment: Transfused 2 U PRBC's, IVF, IV Ceftriaxone Question: Can you further specify the type of shock per the clinical indicators above? Please document a response in the Progress Notes or Discharge Summary. 1. septic shock 2. hemorrhagic shock 3. both septic and hemorrhagic shock 4. Other, with explanation of the clinical findings. 5. Clinically undetermined, no explanation for the clinical findings. PHYSICIAN RESPONSE Can you specify per above: Other, explanation/clinical finding Explanation/Clinical Findings Both hemorrhagic and septic shock suspected, unable to determine with complete certainty In responding to this query, please exercise your independent professional judgment. The purpose of this communication is to more accurately reflect the complexity of your patients condition. The fact that a question is asked does not imply that any particular answer is desired or expected. Thank you for your timely response to this clarification. Requestors name: [ ] Phone # [ ] THIS PHYSICIAN QUERY FORM IS A PERMANENT PART OF THE MEDICAL RECORD ORAL ROSAS Oct 10, 2021 12:20 SILVANA TREVINO MD Oct 10, 2021 21:45
== END 2021-10-09 16:37 | DRG 871 ==
LOC: EDUNIT# 07:28 → ER FS 07:29 → ICU 10:25 → 4TH 10-02 14:09
PROVIDERS: ADMIT Internal Medicine; ATTEND Family Medicine
DX: A41.51 Sepsis due to Escherichia coli [E. coli] (principal); R65.21 Severe sepsis with septic shock; R57.8 Other shock; I21.A1 Myocardial infarction type 2; I63.9 Cerebral infarction, unspecified; K92.2 Gastrointestinal hemorrhage, unspecified; N39.0 Urinary tract infection, site not specified; D62 Acute posthemorrhagic anemia; G93.40 Encephalopathy, unspecified; N17.9 Acute kidney failure, unspecified; E44.0 Moderate protein-calorie malnutrition; E86.0 Dehydration; E87.5 Hyperkalemia; I10 Essential (primary) hypertension; E78.2 Mixed hyperlipidemia; M19.91 Primary osteoarthritis, unspecified site; M41.9 Scoliosis, unspecified; R13.10 Dysphagia, unspecified; Z68.23 Body mass index [BMI] 23.0-23.9, adult; Z86.73 Personal history of transient ischemic attack (TIA), and cerebral infarction without residual deficits; S00.81XA Abrasion of other part of head, initial encounter; W18.30XA Fall on same level, unspecified, initial encounter; Z79.82 Long term (current) use of aspirin; Z88.1 Allergy status to other antibiotic agents; Z88.8 Allergy status to other drugs, medicaments and biological substances
CPT/HCPCS: 36415; 36569; 51702; 70450; 70486; 70551; 71045; 72125; 76937; 80048; 80053; 80061; 81000; 82274; 82947; 83605; 83735; 83874; 83880; 84100; 84145; 84484; 85007; 85014; 85018; 85025; 85027; 85610; 85730; 86141; 86850; 86900; 86901; 86920; 87040; 87081; 87088; 87186; 87636; 87804; 93005; 93041; 93306; 96361; 96374; 96375

== ENCOUNTER → 2021-10-17 | Outpatient (CLI) | payer MEDICARE, OTHER ==
[~2021-10-17] MED LIST changes: +ASPI-1238 PO; +C,E,1CAP PO; +CELE-63 PO; +DONE10TA41 PO; +LIDO700A45 TD; +MULT-1136 PO; +OMEP20CA18 PO; +SUCR1ORA15 PO
[2021-10-17 11:37] LABS: HEMATOCRIT 27 % (35-52); HEMOGLOBIN 8.6 g/dL (11.5-16.0); MEAN CORPUSCULAR HEMOGLOBIN 28 pg (25-34); MEAN CORPUSCULAR HGB CONC 33 g/dL (32-36); MEAN CORPUSCULAR VOLUME 88 fL (80-99); MEAN PLATELET VOLUME 9.6 fL (9.0-12.2); PLATELET COUNT 237 10^3/uL (130-400); WHITE BLOOD COUNT 8.2 10^3/uL (4.3-11.0)
[2021-10-17 12:15] LABS: ALBUMIN 2.8 GM/DL (3.2-4.5); BILIRUBIN,TOTAL 0.4 MG/DL (0.1-1.0); CALCIUM 8.3 MG/DL (8.5-10.1); CREATININE SERUM 1.06 MG/DL (0.60-1.30); POTASSIUM 3.6 MMOL/L (3.6-5.0); TOTAL PROTEIN 5.3 GM/DL (6.4-8.2)
== END ==
LOC: LAB FS 11:23
PROVIDERS: ATTEND Family Medicine
DX: I63.441 Cerebral infarction due to embolism of right cerebellar artery (principal)
CPT/HCPCS: 36415; 80053; 85027

== ENCOUNTER 2021-10-23 07:17 | Outpatient (CLI) | payer MEDICARE, OTHER ==
[~2021-10-23] VITALS: Ht 149.9 cm; Wt 50.0 kg
== END 2021-10-23 10:26 | disposition home or self-care (01) ==
LOC: PREOP 07:17
PROVIDERS: ATTEND Surgery
DX: Z01.818 Encounter for other preprocedural examination (principal)

== ENCOUNTER 2021-10-24 11:30 | Day surgery (SDC) | payer MEDICARE, OTHER ==
[~2021-10-24] VITALS: Ht 150 cm; Wt 50.0 kg
[2021-10-24] VITALS (7 sets, daily range): BP systolic 92–145; BP diastolic 43–62
[2021-10-24] MEDS ORDERED: ceFAZolin 2 GM IV Premixed 50 ML IV ONE (12:15)
[2021-10-24] MEDS ORDERED: LACTATED RINGERS 1,000 ML IV SCH (14:00)
[2021-10-24] MEDS ORDERED: PROPOFOL INJECTION 50 ML IV ONE (14:25)
--- NOTE | 2021-10-24 14:50 | Progress Note-Pre Operative ---
Pre-Operative Progress Note H&P Reviewed The H&P was reviewed, patient examined and no changes noted. Time Seen by Provider: 14:44 Date H&P Reviewed: Oct 24, 2021 Time H&P Reviewed: 14:44 Pre-Operative Diagnosis: Malnutrition, CVA TIFFANY LEONARDO DO Oct 24, 2021 14:50
--- NOTE | 2021-10-24 15:17 | Progress Note-Post Operative ---
Post-Operative Progess Note Surgeon (s)/Circulation Sales Representative (s) Surgeon LEILA SHRESTHA DO Circulation Sales Representative: See Dr. Dockery Dictation for EGD Pre-Operative Diagnosis Malnutrition, CVA Post-Operative Diagnosis same Procedure & Operative Findings Date of Procedure 10/24/21 Procedure Performed/Findings percutaneous gastrostomy tube placement Anesthesia Type per mda Estimated Blood Loss Estimated blood loss (mL): minimal Specimens/Packing Specimens Removed na LEILA SHRESTHA DO Oct 24, 2021 15:17
--- NOTE | 2021-10-24 16:53 | Anesthesia-General Post-Op ---
MAC Patient Condition Mental Status/LOC: Same as Preop Cardiovascular: Satisfactory Nausea/Vomiting: Absent Respiratory: Satisfactory Pain: Controlled Complications: Absent Post Op Complications Complications None Follow Up Care/Instructions Patient Instructions None needed. Anesthesiology Discharge Order Discharge Order Patient was doing well after the procedure, no complaints, stable vital signs, no apparent adverse anesthesia problems. No complications reported per nursing. JONELLE LAWTON DO Oct 24, 2021 16:53
--- NOTE | 2021-10-24 17:19 | Progress Note-Post Operative ---
Post-Operative Progess Note Surgeon (s)/Welding Process Specialist (s) Surgeon TIFFANY LEONARDO DO Welding Process Specialist: Sami Pre-Operative Diagnosis Malnutrition, CVA Post-Operative Diagnosis same plus poor dentition Procedure & Operative Findings Date of Procedure 10/24/21 Procedure Performed/Findings EGD with PEG tube placement PROCEDURE NOTE: After informed consent was obtained, the patient was brought to the operating suite, placed in bed in the supine position. She was administered IV sedation by the Anesthesiologist who then monitored vitals the entire time, heart rate, blood pressure and pulse ox. The scope was inserted down the mouth through the esophagus into the stomach. On the way down, noted some mild esophagitis and pushed into the stomach. There appeared to be some dark, possibly melenotic fluid. Could see the pylorus, but could not get into the duodenum. I insufflated the stomach fully and then aimed scope upwards so we could see the light on the abdominal wall. Dr. Gallardo started prepping the abdomen for the gastrostomy portion of procedure. In the meantime, I retroflexed the scope, saw hiatal hernia and took a picture of this. Watched as Dr. Gallardo inserted needle into stomach and then grabbed the wire and pulled it and the scope completely out. Attached the PEG tube and then pushed the scope back in following the PEG tube down. I sat very nicely in the stomach, snug but easily twisted. At this point pulled the scope up the esophagus and out the mouth. The patient tolerated the procedure, and she was recovered in PACU. Anesthesia Type IV sedation by Anesthesia Estimated Blood Loss Estimated blood loss (mL): scant Specimens/Packing Specimens Removed none TIFFANY LEONARDO DO Oct 24, 2021 17:19
--- NOTE | 2021-10-25 05:17 | OPERATIVE REPORT ---
DATE OF SERVICE: 10/24/2021 PREOPERATIVE DIAGNOSES: Malnutrition, CVA POSTOPERATIVE DIAGNOSES: Malnutrition, CVA PROCEDURE: Percutaneous gastrostomy tube placement. KNOWLEDGE MANAGEMENT CONSULTANT: Please see Dr. Dockery's dictation for EGD portion. ESTIMATED BLOOD LOSS: Minimal. COMPLICATIONS: None. ANESTHESIA: Per MDA. INDICATIONS: The patient is an 86-year-old female with malnutrition, CVA. She has seen Dr. Dockery for EGD with gastrostomy tube placement. Consent was signed in the chart. He has asked me to do the gastrostomy portion. INDICATIONS: The patient is an 86-year-old female. DESCRIPTION OF PROCEDURE: The patient was taken to the operating suite. Please see Dr. Dockery's dictation for the EGD portion. The stomach was insufflated, the light was easily visualized on the abdomen and was ballottable. The area was prepped and draped and local anesthetic was infiltrated at the skin level and then down to the abdominal wall. The needle was able to easily visualize. A #11 blade scalpel was used to make a small skin incision. An Angiocath needle and catheter were advanced through the abdominal wall, which was then snared by Dr. Dockery. The guidewire was inserted and the catheter was removed. The gastrostomy tube was attached to the wire and then from the incision was then slowly withdrawn until it was in good position. The bolster was then attached and placed on to the skin at approximately 4 cm. The tube was then cut to length and the port was attached in the usual fashion. The area was washed and dried and sterile bandages were applied. The patient tolerated procedure well without any complications. She was taken to recovery room in stable condition. cc: Self--requested, unable to deliver Job ID: [id number] DocumentID: [id number] Dictated Date: 10/24/2021 15:22:06 Server Assistant Date: 10/25/2021 01:29:50 Dictated By: LEILA SHRESTHA DO
== END 2021-10-24 17:30 ==
LOC: ENDO 11:30
PROVIDERS: ATTEND Surgery
DX: E46 Unspecified protein-calorie malnutrition (principal); Z86.73 Personal history of transient ischemic attack (TIA), and cerebral infarction without residual deficits; K20.90 Esophagitis, unspecified without bleeding; K44.9 Diaphragmatic hernia without obstruction or gangrene
CPT/HCPCS: 87081

== ENCOUNTER 2022-07-18 21:29 | Emergency (ER) | payer MEDICARE, OTHER ==
[~2022-07-18] VITALS: Ht 160 cm; Wt 39.0 kg
[~2022-07-18 21:29] MED LIST changes: -OLME40TA12 PO; +OLME40TA70 PO
--- NOTE | 2022-07-18 21:33 | ED General ---
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 This began an hour prior to coming to the ER when her activated her feeding tube. Patient is unable to answer questions or provide any history at all since she is aphasic. denies that patient has fever and chills, anything or anything else out of the ordinary. Patient's feeding tube was last changed a year ago. Allergies and Home Medications Allergies Coded Allergies: amoxicillin (Verified Allergy, Unknown, 10/24/16) citalopram (Verified Allergy, Unknown, 10/24/16) diltiazem (Verified Allergy, Unknown, 10/24/16) gluten (Verified Allergy, Unknown, RASH, 10/24/16) hydrochlorothiazide (Verified Allergy, Unknown, 10/24/16) nitrofurantoin (Verified Allergy, Unknown, 10/24/16) quinapril (Verified Allergy, Unknown, 10/24/16) sertraline (Verified Allergy, Unknown, 10/24/16) triamterene (Verified Allergy, Unknown, 10/24/16) Patient Home Medication List Home Medication List Reviewed: Yes Lidocaine (Lidocaine 5% Patch) 5 % Adh..patch, 1 PATCH TD DAILY PRN for PAIN- BREAKTHROUGH, (Reported) Entered as Reported by: FRANK BALLARD on 10/01/21 9603 Review of Systems Review of Systems Constitutional: no symptoms reported EENTM: no symptoms reported Respiratory: no symptoms reported Cardiovascular: no symptoms reported Gastrointestinal: see HPI (Feeding tube issues) Genitourinary: no symptoms reported Musculoskeletal: no symptoms reported Skin: no symptoms reported Psychiatric/Neurological: No Symptoms Reported Hematologic/Lymphatic: No Symptoms Reported Immunological/Allergic: no symptoms reported Physical Exam Vital Signs Vital Signs - First Documented 07/18/22 21:30 Temp 36.6 Pulse 84 Resp 16 B/P (MAP) 107/40 (62) Pulse Ox 100 O2 Delivery Room Air Capillary Refill : Height, Weight, BMI Height: '" Weight: lbs. oz. kg; BMI Method: General Appearance: No Apparent Distress, WD/WN HEENT: PERRL/EOMI Neck: Full Range of Motion Respiratory: Lungs Clear, Normal Breath Sounds Cardiovascular: Regular Rate, Rhythm Gastrointestinal: Normal Bowel Sounds, Soft, Other (Feeding tube present, and appears patent.) Neurologic/Psychiatric: Alert Skin: Pallor Progress/Results/Core Measures Suspected Sepsis SIRS Temperature: Pulse: Respiratory Rate: Blood Pressure / Mean: Results/Orders My Orders Orders - ISABELLA MAJOR MD Chest 1 View Ap/Pa Only (07/18/22 21:33) Ct Abdomen/Pelvis Wo (07/18/22 21:47) Vital Signs/I&O 07/18/22 21:30 Temp 36.6 Pulse 84 Resp 16 B/P (MAP) 107/40 (62) Pulse Ox 100 O2 Delivery Room Air Capillary Refill : Progress Note : Progress Note 1. FEEDING TUBE ISSUE: - Pt is DNR/ DNI, on hospice care on a feeding tube for the last year - CXR:normal - CT ABDOMEN:no acute findings: PEG tube tip and balloon are within the gastric lumen. The gastric lumen is decompressed. Large amount of retained stool thr oughout the colon. Negative for lower GI tract obstruction, pneumatosis or extraluminal gas. Bilateral nonobstructing intrarenal calculi. Moderate dilatation bilateral upper renal collecting systems. No identifiable ureteral calculi. The urinary bladder is moderately distended. Bladder distention may, at least in part because of ureteral dilatation. Consider reevaluation after bladder decompression. -Patient's mouth was suctioned in the ER and then thick white feeding tube material was suctioned out of her mouth. Patient appeared more comfortable after suctioning. -Follow-up with PCP and hospice care; spring former hand consult recommended for re- assessment of quality of nutrition feeds. - Advised to elevate head of bed to 45 degrees or more when giving feeding tube feeds. Diagnostic Imaging Diagonstic Imaging: Xray, CT Plain Films/CT/US/NM/MRI: chest, abdomen Comments [facility] [place], [place] NAME: CHICA SAHA [facility] REC#: [id number] PT STATUS: REG ER : 1935 PHYSICIAN: ISABELLA MAJOR MD ADMIT DATE: 07/18/22/ER FS Signed Date of Exam:07/18/22 CHEST 1 VIEW AP/PA ONLY CHEST 1 VIEW AP/PA ONLY Indication: Altered mental status Comparison: 09/22/2021 Findings: No focal airspace disease in the visualized lungs. No pleural effusion or pneumothorax. Normal cardiomediastinal silhouette. Impression: 1. No acute cardiopulmonary process by portable radiography. Dictated by: Dictated on workstation # [id number] Dict: 07/18/222142 Trans: 07/18/222142 [facility] [id number] Interpreted by: KEVIN CARMONA MD Electronically signed by: KEVIN CARMONA MD 07/18/222142 Departure Impression Primary Impression: Clogged feeding tube Additional Impression: On tube feeding diet Disposition: 01 HOME, SELF-CARE Condition: Improved Departure-Patient Inst. Patient Instructions: How to Give a Tube Feeding, Medical Care During Advanced Illness Add. Discharge Instructions: -Follow-up with PCP and hospice care; spring former hand consult recommended for re- assessment of quality of nutrition feeds. - Advised to elevate head of bed to 45 degrees or more when giving feeding tube feeds. ISABELLA MAJOR MD Jul 18, 2022 21:33
--- NOTE | 2022-07-18 21:45 | Diagnostic Imaging Report ---
CHEST 1 VIEW AP/PA ONLY Indication: Altered mental status Comparison: 09/22/2021 Findings: No focal airspace disease in the visualized lungs. No pleural effusion or pneumothorax. Normal cardiomediastinal silhouette. Impression: 1. No acute cardiopulmonary process by portable radiography. Dictated by: Dictated on workstation # [id number]
[2022-07-19] VITALS: BP 114/49
--- NOTE | 2022-07-19 06:55 | Diagnostic Imaging Report ---
PROCEDURE: CT abdomen and pelvis without contrast. TECHNIQUE: Multiple contiguous axial images were obtained through the abdomen and pelvis without the use of intravenous contrast. Auto Exposure Controls were utilized during the CT exam to meet ALARA standards for radiation dose reduction. INDICATION: Blockage of the feeding tube. Regurgitation. Abdominal pain. COMPARISON: None. FINDINGS: The heart is unremarkable. The lung bases are clear. There is bilateral mild to moderate hydroureteronephrosis. No obstructing calculi are seen. Nonobstructing calculi versus vascular calcifications are seen bilaterally. The liver, spleen, pancreas, and adrenal glands have a normal noncontrast CT appearance. There is no pathologically enlarged mesenteric or retroperitoneal adenopathy. A PEG tube is seen within the stomach lumen. The stomach is decompressed. The bowel loops are nondilated. A moderate to large volume of stool is seen throughout the colon. There is no free fluid or free air. No acute osseous abnormalities. There is S-shaped curvature of the thoracolumbar spine. Calcified aortic and iliac atherosclerotic plaque is seen without evidence of aneurysm. The urinary bladder is moderately distended. There is no free air, loculated collection, or adenopathy in the pelvis. IMPRESSION: 1. The PEG tube is seen with the tip in the lumen of the stomach. The stomach is decompressed. 2. No bowel distention. Moderate to large volume of stool is seen in the colon which can be seen with constipation. 3. Bilateral mild to moderate hydroureteronephrosis with a moderately distended urinary bladder. No obstructing calculi are seen. Recommend Mills catheterization to decompress. 4. Bilateral nonobstructing renal calculi. Agree with overnight report. Dictated by: Dictated on workstation # [id number]
== END 2022-07-19 | disposition home or self-care (01) ==
LOC: EDUNIT# 21:29 → ER FS 21:33
DX: K94.23 Gastrostomy malfunction (principal)
CPT/HCPCS: 71045; 74176

== ENCOUNTER 2022-09-27 22:59 | Emergency (ER) | payer OTHER, MEDICARE ==
[~2022-09-27 22:59] MED LIST changes: -LOSA100T3 PO; +LOSA100T4 PO; -LOSA100T57 PO; +LOSA100T58 PO
[2022-09-28] MEDS ORDERED: LIDOCAINE UROJET 2% GEL 10 ML PKG TOP ONE
[2022-09-28] MEDS ORDERED: LIDOCAINE UROJET 2% GEL 10 ML PKG ONE (00:01)
--- NOTE | 2022-09-28 00:38 | ED General ---
General Chief Complaint: Catheter/Drain/Tube Problems Stated Complaint: FEEDING TUBE NEEDS REPLACED Nursing Triage Note: TO ED VIA POV AND W/C TO ROOM 3. PER FAMILY PT IS TURNED EVERY 2H AND IT WAS NOTICED THAT FEEDING TUBE WAS BROKEN OFF DURING 1999 TURN. PT IS CURRENTLY UNDER CARE OF [facility]. Allergies and Home Medications Allergies Coded Allergies: amoxicillin (Verified Allergy, Unknown, 10/24/16) citalopram (Verified Allergy, Unknown, 10/24/16) diltiazem (Verified Allergy, Unknown, 10/24/16) gluten (Verified Allergy, Unknown, RASH, 10/24/16) hydrochlorothiazide (Verified Allergy, Unknown, 10/24/16) nitrofurantoin (Verified Allergy, Unknown, 10/24/16) quinapril (Verified Allergy, Unknown, 10/24/16) sertraline (Verified Allergy, Unknown, 10/24/16) triamterene (Verified Allergy, Unknown, 10/24/16) Patient Home Medication List Lidocaine (Lidocaine 5% Patch) 5 % Adh..patch, 1 PATCH TD DAILY PRN for PAIN- BREAKTHROUGH, (Reported) Entered as Reported by: FRANK BALLARD on 10/01/21 1333 Past Fxxxwaw-Qkmqzb-Ywznzd Hx Immunizations Up To Date First/Initial COVID19 Vaccinat: UTD PER Second COVID19 Vaccination Paco: UTD PER Third COVID19 Vaccination Date: UTD PER Past Medical History Surgeries: Yes (Perforated duodenal ulcer) Respiratory: No Cardiac: Yes High Cholesterol, Hypertension Neurological: Yes Stroke Genitourinary: Yes (ULLOA INPLACE) Gastrointestinal: Yes (Perforated duodenal ulcer) Ulcer Musculoskeletal: Yes (Osteoarthritis; Scoliosis- L3,4,5) Scoliosis, Chronic Back Pain Endocrine: No Cancer: No Psychosocial: No Integumentary: No Family Medical History No Pertinent Family Hx Physical Exam Vital Signs Vital Signs - First Documented 09/27/22 23:13 Temp 36.1 Pulse 76 Resp 12 B/P (MAP) 128/47 (74) Pulse Ox 96 O2 Delivery Room Air Capillary Refill : Less Than 3 Seconds Height, Weight, BMI Height: 5'2.00" Weight: 121lbs. 0.0oz. 54.415924ck; 15.00 BMI Method: Progress/Results/Core Measures Suspected Sepsis SIRS Temperature: Pulse: 76 Respiratory Rate: 12 Blood Pressure 128 /47 Mean: 74 Results/Orders My Orders Orders - MAKSIM OSCAR DO Lidocaine 2% (Urojet) (Xylocaine Urojet) (09/28/22 00:00) Lidocaine 2% (Urojet) (Xylocaine Urojet) (09/28/22 00:01) Peg Tube Check (09/28/22 00:11) Medications Given in ED Current Medications Medications Dose Ordered Sig/Dari Route Start Time Stop Time Status Last Admin Dose Admin Lidocaine HCl 10 ml ONCE ONCE TOP 09/28/22 00:00 09/28/22 00:02 DC 09/28/22 00:03 10 ML Vital Signs/I&O 09/27/22 23:13 Temp 36.1 Pulse 76 Resp 12 B/P (MAP) 128/47 (74) Pulse Ox 96 O2 Delivery Room Air Capillary Refill : Less Than 3 Seconds Blood Pressure Mean: 74 Departure Impression Primary Impression: BROKEN FEEDING TUBE WITH REPLACEMENT OF FEEDING TUBE Disposition: HOME, SELF-CARE Condition: Stable Departure-Patient Inst. Decision time for Depature: 00:35 Referrals: TIFFANY LEONARDO MAXWELL MD (PCP/Family) Primary Care Physician Patient Instructions: Enteral Feeding, How to Care for Your Gastrostomy Tube Add. Discharge Instructions: CONTINUE ALL REGULAR MEDICATIONS AND FEEDINGS USUAL FOLLOW UP WITH DR. LEONARDO OR [place] IF YOU HAVE ANY FURTHER PROBLEMS WITH FEEDING TUBE. All discharge instructions reviewed with patient and/or family. Voiced understanding. MAKSIM OSCAR DO Sep 28, 2022 00:38
[2022-09-28 00:49] VITALS: BP 135/53
--- NOTE | 2022-09-28 07:40 | Diagnostic Imaging Report ---
INDICATION: Evaluate PEG tube. Contrast was injected into patient's indwelling PEG tube and a radiograph was obtained. There is contrast within the stomach confirming adequate PEG tube location. No extravasation is seen. There is a large stool volume throughout the colon. IMPRESSION: Satisfactory PEG tube placement. Dictated by: Dictated on workstation # [id number]
== END 2022-09-28 00:49 | disposition home or self-care (01) ==
LOC: EDUNIT# 22:59 → ER 23:02
DX: Z43.1 Encounter for attention to gastrostomy (principal)
CPT/HCPCS: 49465

== ENCOUNTER 2022-10-15 23:29 | Emergency (ER) | payer OTHER, MEDICARE ==
[~2022-10-15] VITALS: Ht 152 cm; Wt 36.0 kg
[2022-10-15 23:35] VITALS: BP 0/0
--- NOTE | 2022-10-15 23:40 | ED General ---
General Stated Complaint: FAINT Source of Information: Spouse Exam Limitations: Other (patient non responsive and exhibiting signs of rigor mortis and stiffness.) History of Present Illness Date Seen by Provider: Oct 15, 2022 Time Seen by Provider: 23:24 Initial Comments 87 yo female presenting with family to the ED by private vehicle. reports that she was not responding to him but he thought he felt a pulse so he had his son help get her in the vehicle and they drove here by private vehicle. On arrival to the ED the son lifted her from the car and placed her on a gurney. She was stiff and exhibiting signs of rigor mortis. She had no pulse or spontaneous respirations. She was cool to the touch and again showing signs of rigor mortis and dependent lividity. When placed on nuclear monitoring technician she had no electrical activity and was exhibiting asystole. She Has a history of prior stroke and is bed ridden. She also has had GI bleed within the last year. She was pronounced at 2326 after obtaining print out of her asystole. wanted to use [facility]. He could not say exactly when sh e had stopped responding to him. Allergies and Home Medications Allergies Coded Allergies: amoxicillin (Verified Allergy, Unknown, 10/24/16) citalopram (Verified Allergy, Unknown, 10/24/16) diltiazem (Verified Allergy, Unknown, 10/24/16) gluten (Verified Allergy, Unknown, RASH, 10/24/16) hydrochlorothiazide (Verified Allergy, Unknown, 10/24/16) nitrofurantoin (Verified Allergy, Unknown, 10/24/16) quinapril (Verified Allergy, Unknown, 10/24/16) sertraline (Verified Allergy, Unknown, 10/24/16) triamterene (Verified Allergy, Unknown, 10/24/16) Patient Home Medication List Home Medication List Reviewed: Yes Lidocaine (Lidocaine 5% Patch) 5 % Adh..patch, 1 PATCH TD DAILY PRN for PAIN- BREAKTHROUGH, (Reported) Entered as Reported by: FRANK BALLARD on 10/01/21 1376 Review of Systems Review of Systems Constitutional: see HPI Musculoskeletal: other (rigor mortis with dependent lividity present) Past Jugzpxh-Zodyiz-Okxudr Hx Immunizations Up To Date First/Initial COVID19 Vaccinat: UTD PER Second COVID19 Vaccination Paco: UTD PER Third COVID19 Vaccination Date: UTD PER Past Medical History Surgeries: Yes (Perforated duodenal ulcer) Respiratory: No Cardiac: Yes High Cholesterol, Hypertension Neurological: Yes Stroke Genitourinary: Yes (ULLOA INPLACE) Gastrointestinal: Yes (Perforated duodenal ulcer) Ulcer Musculoskeletal: Yes (Osteoarthritis; Scoliosis- L3,4,5) Scoliosis, Chronic Back Pain Endocrine: No Cancer: No Psychosocial: No Integumentary: No Family Medical History No Pertinent Family Hx Physical Exam Vital Signs Vital Signs - First Documented 10/15/22 23:35 Pulse 0 Resp 0 B/P (MAP) 0/0 (0) Capillary Refill : Height, Weight, BMI Height: 5'2.00" Weight: 121lbs. 0.0oz. 54.531923kp; 15.00 BMI Method: General Appearance: Other (patient with rigid extremities and jaw consistent with rigor mortis) HEENT: No Moist Mucous Membranes (dry mucous membranes and mouth fixed open with rigid muscles) Respiratory: Other (no respiratory effort and no breath sounds) Cardiovascular: Other (no heart beat can be auscultated, no pulses can be palpated at carotid, over the chest, femoral) Neurologic/Psychiatric: Other (unresponsive and exhibiting stiffness consistent with rigor mortis) Skin: Cool Progress/Results/Core Measures Suspected Sepsis SIRS Temperature: Pulse: Respiratory Rate: Blood Pressure / Mean: Results/Orders Vital Signs/I&O 10/15/22 23:35 Pulse 0 Resp 0 B/P (MAP) 0/0 (0) Capillary Refill : Progress Note : Progress Note Pronounced her after obtaining rhythm strip showing asystole and explaining to the that it had been too long since she passed for us to be able to perform any CPR or resuscitative efforts due to her body being stiff and cold and we would not have any chance of restarting her heart or getting her to breath on her own. Pronounced at 2325. Will contact [facility] Pending sale to [facility] and since she is in the ED will contact [facility]. Departure Impression Primary Impression: Cardiopulmonary arrest Disposition: 20 (2325) Condition: (2325) Departure-Patient Inst. Decision time for Depature: 23:26 Referrals: DAMASO GLASER MD (PCP/Family) Primary Care Physician Patient Instructions: Sudden cardiac arrest YE ESTRELLA MD Oct 15, 2022 23:40
== END 2022-10-16 01:22 | disposition expired ==
LOC: EDUNIT# 23:29 → ER FS 23:31
DX: I46.9 Cardiac arrest, cause unspecified (principal)
CPT/HCPCS: 99281